=== PATIENT | male | born 1945 | race Caucasian/White ===

== ENCOUNTER 2022-12-08 16:48 | Inpatient (IN) | payer OTHER, SELFPAY ==
--- NOTE | 2022-12-08 | ECG_ITS ---
Test Reason : Md order Blood Pressure : / mmHG Vent. Rate : 076 BPM Atrial Rate : 312 BPM P-R Int : 000 ms QRS Dur : 088 ms QT Int : 392 ms P-R-T Axes : 000 017 211 degrees QTc Int : 441 ms Atrial fibrillation with frequent V-paced beats Low voltage QRS ST & T wave abnormality, consider inferior ischemia Abnormal ECG When compared with ECG of 08-DEC-2022 17:27, No significant changes seen Referred By: Wilfrid Barger Electronically Signed By:Kuldip Pastrana
--- NOTE | ~2022-12-08 | CT_ITS ---
EXAMINATION: CT HEAD WITHOUT CONTRAST (STROKE PROTOCOL) CLINICAL INFORMATION: Stroke protocol. Dysarthria. Aphasia. COMPARISON: CT head 12/24/2019 TECHNIQUE: Contiguous axial imaging was performed from the skull base to vertex without intravenous administration of contrast. Coronal and sagittal reformatted images are performed at CT scanner This CT examination was performed using dose optimization techniques as appropriate, variously including the following: *Automated exposure control *Adjustment of mA and/or kV according to patient size (this includes techniques or standardized protocols for targeted exams where dose is matched to indication/reason for exam; i.e. extremities or head) *Use of iterative reconstruction technique DLP: 784 mGy-cm FINDINGS: There is no evidence of acute intracranial hemorrhage or territorial infarction. No abnormal mass-effect or midline shift is seen. [place] to white matter differentiation is well preserved. No extra-axial fluid collections are identified. There is a calcified lesion in the right parietal area extra-axial region measuring 7 mm consistent with a calcified meningioma. Unchanged since prior studies. There is generalized global volume loss. There is moderate prominence of the ventricles and the sulci . There is moderate hypodensity of the periventricular white matter due to chronic small vessel ischemic disease. There are vascular calcifications of the internal carotid arteries bilaterally. There is no osseous abnormality. Small air-fluid level with associated mucosal thickening in the left maxillary sinus. The mastoid air cells and middle ear cavities are normally aerated. CT/CT head for stroke IMPRESSION: 1. No acute intracranial pathology. 2. Left maxillary sinus disease. This critical result was discussed with Roberta Yoder at 1710 hours on 12/08/2022. It was ascertained that the content and urgency of the report was understood at the time of direct communication.
--- NOTE | ~2022-12-08 | CT_ITS ---
EXAMINATION: CT ANGIOGRAM HEAD CT ANGIOGRAM NECK CLINICAL INFORMATION: Reason for Exam dysarthria, left arm/leg weakness COMPARISON: CTA head and neck 04/04/2020 TECHNIQUE: Initial noncontrast road engineer freight imaging of the head and neck was performed. Comparison is made with noncontrast head CT from earlier today. Test bolus sequences followed by intravenous administration 70 mL of Omnipaque 350. Helical imaging was performed in the axial plane from the aortic arch to the skull vertex. Delayed postcontrast imaging of the head was also performed. The data was processed at the glass technologist's workstation for generation of MIP sequences. Angled MIPs and volume rendered reformatted images were also generated at an offline 3D workstation. Stenoses are assessed in accordance with NASCET criteria unless otherwise indicated. DLP: 1629 mGy-cm This CT examination was performed using dose optimization techniques as appropriate, variously including the following: *Automated exposure control. *Adjustment of mA and/or kV according to patient size (this includes techniques or standardized protocols for targeted exams where dose is matched to indication/reason for exam; i.e. extremities or head). *Use of iterative reconstruction technique. FINDINGS: CT Head: There is no evidence of acute intracranial hemorrhage or edematous territorial infarction. A few foci of hypoattenuation in the periventricular and deep white matter are consistent with mild microangiopathy. Moreno-white matter differentiation is preserved. Proportional prominence of the ventricles and sulcal spaces. No evidence for obstructive hydrocephalus. No abnormal mass effect or midline shift. No extra-axial fluid collections. Stable extra-axial calcification along the right lateral frontal lobe. No pathologic intra-axial enhancement or regional oligemia. No acute soft tissue or osseous abnormalities. Mild mucosal thickening and reactive bony changes indicative of chronic sinusitis involving left maxillary sinus. CT Neck: The thyroid gland and remaining cervical soft tissues are within normal limits. Moderate to advanced multilevel cervical spondylosis. CT Upper Chest: The visualized lung apices and upper mediastinum are within normal limits. Partially visualized left chest wall pacemaker leads. Neck CTA: Aortic Arch: Normal contour and caliber. Two vessel branching pattern of the arch with left common carotid artery arising from the brachiocephalic trunk. Great Vessel Origins: No significant stenosis of the branch origins. Right Common Carotid Artery: No focal stenosis or occlusion. Cervical Right Internal Carotid Artery: Normal opacification without focal stenosis or occlusion. Left Common Carotid Artery: No focal stenosis or occlusion. Cervical Left Internal Carotid Artery: Normal opacification without focal stenosis or occlusion. Cervical Right Vertebral Artery: No focal stenosis or occlusion. Cervical Left Vertebral Artery: No focal stenosis or occlusion. Brain CTA: Intracranial Internal Carotid Arteries: Calcific atherosclerotic disease of the intracranial internal carotid arteries without occlusion or flow-limiting stenosis. Right Anterior Cerebral Artery: Normal A1 segment. Normal opacification of the distal LEN[place]A segments. Left Anterior Cerebral Artery: Normal A1 segment. Normal opacification of the distal L[place]A segments. Anterior Communicating Artery: Normal. Right Middle Cerebral Artery: Normal M1 segment of the MCA without focal stenosis or occlusion. There is an occlusion of the proximal M2 superior division of the right MCA (series 6 image 244. Left Middle Cerebral Artery: Normal M1 segment of the MCA without focal stenosis or occlusion. Normal arborization of the distal segments. A previously occluded left M2 branch as demonstrated on CTA from 04/04/2020 has recanalized. Right Vertebral Artery: Normal V4 segment. Left Vertebral Artery: Normal V4 segment. Basilar Artery: No high-grade stenosis or occlusion. Mild irregularity of the basilar artery with focal mild stenosis of the mid basilar artery. Normal appearance of the proximal superior cerebellar arteries. Right Posterior Cerebral Artery: The P1 segment is diminutive. origin of the PRACTICE ADMINISTRATOR with robust opacification of the posterior communicating artery. Normal opacification of the distal PRACTICE ADMINISTRATOR segments. Left Posterior Cerebral Artery: The P1 segment is diminutive. origin of the PRACTICE ADMINISTRATOR with robust opacification of the posterior communicating artery. Normal opacification of the distal PRACTICE ADMINISTRATOR segments. Normal opacification of the superior sagittal, straight, transverse, and sigmoid sinuses. 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 Interval recanalization of a previously occluded left M2 branch since CTA from 04/04/2020. Impression #[address] Yoder on 12/08/2022 at 5:43 PM
--- NOTE | 2022-12-08 17:01 | ECG_ITS ---
Test Reason : STROKE? Blood Pressure : / mmHG Vent. Rate : 082 BPM Atrial Rate : 220 BPM P-R Int : 000 ms QRS Dur : 092 ms QT Int : 372 ms P-R-T Axes : 000 000 -50 degrees QTc Int : 434 ms Atrial fibrillation with frquent paced beats ST & T wave abnormality, consider inferior ischemia Abnormal ECG When compared with ECG of 24-MAY-2020 03:18, Atrial fibrillation present Inferior T wave changes more prominent Referred By: Roberta Yoder Electronically Signed By:Kuldip Pastrana
--- NOTE | 2022-12-08 17:17 | ED_ITS ---
HPI - Neuro Symptoms/Deficit General Chief Complaint: Stroke Stated Complaint: STROKE ALERT Source: EMS Mode of arrival: EMS Limitations: altered mental status History of Present Illness HPI Narrative: Patient comes to the emergency room via EMS from home. 45 minutes prior to arrival to the emergency room, patient was found by a billing resident in the apartment complexe elevator confused. The resident helped the patient to get back to his apartment. The patient was too confused to give any history. According to the patient's , he reported to EMS that the patient had gone for a walk. When EMS arrived, EMS reports that the patient had significant dysarthria, dysphasia, complete weakness on the left upper and lower extremity and left-sided facial droop. By the time that the EMS crew got to the hospital, patient's symptoms nearly resolved, still a bit confused but able to talk in full sentences. On arrival, NIH score 0 I attempted calling the patient's to get more history, but no one picked up the phone. Patient has history of CVA in March of 2020 Related Data Home Medications Medication Instructions Recorded Confirmed calcium carbonate 500 mg-vitamin 1 tab PO DAILY 12/08/22 12/08/22 D3 10 mcg (400 unit) tablet (Calcium 500 With D) desonide 0.05 % topical cream 1 appl topical BID 12/08/22 12/08/22 donepezil 23 mg tablet 1 tab PO DAILY 12/08/22 12/08/22 ferrous sulfate 325 mg (65 mg 1 tab PO DAILY 12/08/22 12/08/22 iron) tablet (FeroSul) gabapentin 600 mg tablet 1 tab PO BID 12/08/22 12/08/22 memantine 10 mg tablet 1 tab PO BID 12/08/22 12/08/22 metoprolol succinate 50 mg 1 tab PO DAILY 12/08/22 12/08/22 tablet,extended release 24 hr potassium chloride 20 mEq 1 tab PO DAILY 12/08/22 12/08/22 tablet,extended release(part/cryst) quetiapine 25 mg tablet 1 tab PO BID 12/08/22 12/08/22 rivaroxaban 20 mg tablet (Xarelto) 1 tab PO DAILY 12/08/22 12/08/22 sertraline 50 mg tablet 1 tab PO DAILY 12/08/22 12/08/22 spironolactone 50 mg tablet 0.5 tab PO DAILY 12/08/22 12/08/22 Allergies Allergy/AdvReac Type Severity Reaction Status Date / Time No Known Allergies Allergy Verified 12/08/22 17:27 [No Known Allergies*] Review of Systems Review of Systems: Constitutional : No Weight loss, No Fever, No Chills, No Night Sweats, No Fatigue, No Malaise ENT/Mouth : No Hearing loss, No Ear Pain, No Nasal Congestion, No Sinus Pain, No Hoarseness, No sore throat, No Rhinorrhea, No Swallowing Difficulty Eyes: No Eye Pain, No Swelling, No Redness, No Foreign Body, No Discharge, No Vision Changes Cardiovascular : No Chest Pain, No SOB, No Dyspnea on Exertion, No Orthopnea, No Edema, No Palpitations Respiratory : No Cough, No Sputum, No Wheezing, No Smoke Exposure, No Dyspnea Gastrointestinal : No Nausea, No Vomiting, No Diarrhea, No Constipation, No abdominal Pain, No Hematochezia, No Melena Genitourinary : no irregular bleeding, No Dysuria, No Urinary Frequency, No Hematuria, No Urinary Incontinence, No Urgency, No Flank Pain, No Urinary Flow Changes, No Hesitancy Musculoskeletal : No joint pain, No Myalgias, No Joint Swelling Skin : No Skin Lesions, No rash Neuro : Earlier today patient had left-sided mouth droop, left arm and leg wea kness Psych : No Anxiety/Panic, No Depression, No SI/HI/AH/VH, No Social Issues, Heme/Lymph: No Bruising, No Bleeding,No Lymphadenopathy Endocrine : No Polyuria, No Polydipsia, No Temperature Intolerance PMFSH Past Medical History Medical History Alzheimer's dementia Atrial fibrillation Chronic anticoagulation Cirrhosis CVA (cerebral vascular accident) Hepatic encephalopathy Hypertension Pacemaker Social History Social History Smoked in Last 30 Days: No Use of substances other than those prescribed or required for medical reasons: No Advance Directives: Yes Advance Directives Information Provided: No Advance Directives on File: No Physical Exam Vital Signs: Vital Signs: Last Vital Signs Temp 97.8 F 12/08/22 19:22 Pulse 75 12/08/22 19:22 Resp 13 12/08/22 19:22 BP 151/92 H 12/08/22 19:22 Pulse Ox 100 12/08/22 19:22 O2 Del Method 12/08/22 19:22 BMI result Body Mass Index 31.0 Const: Other: Appearance: Alert. Oriented X3. No acute distress. Confused Eyes: Pupils equal, round and reactive to light. ENT: Pharynx normal. Neck: Normal inspection. Neck supple. No lymph nodes noted. No crepitus CVS: Normal heart rate and rhythm. Pulses normal. Normal S1 and S2 Respiratory: No respiratory distress. Breath sounds normal. No Wheezing. No rales Abdomen: Soft and nontender. No rigidity. No distention. Skin: Skin warm and dry. Normal skin color. Normal skin turgor. Extremities: No lower extremity edema. No Lacerations. No Rash Neuro: Oriented X 2. Very mild weakness in the left upper and lower extremities, talking in full sentences, no facial droop, no upper extremity drifting, able to move lower extremities, strength 4/5 in left upper and lower extremity, right extremity 5/5 upper and lower extremities, left lip looks a little bit droopy but patient has no teeth, patient has symmetrical smile Psych: calm, cooperative, normal affect Course Course Course Narrative: -patient is currently on Xarelto and NIH score is 15, patient is not a candidate for tPA -patient has history of CVA in 2020, seems that he did not have residual deficits. 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 I discussed the CT findings with [facility] radiologist, this is new. Patient had previously in 2019 left M2 occlusion -I discussed the CT findings and patient presentation with Dr. Clinton, recommends transfer to [facility]. -18:25 I discussed the patient and CT findings with Dr. Prieto from [facility] neurology, at this time, transfer has been declined: CT scan findings and reported neurological deficits do not make sense, unclear if this is a new versus old stroke. Dr. Prieto will review the images, call me back after reviewing the CT scan. At this time, the images have not been able to cross to the [facility] system in [facility], image transfer was requested 45 minutes ago -Dr. Prieto called back, reviewed the images. Patient does have M2 clot but patient has patent collaterals. Patient's NIH score is 0. Recommendations: No need to transfer. Switch Xarelto to Eliquis I discussed the above-mentioned with Dr. Keith, pt being admitted Medications Administered Discontinued Medications Generic Name Dose Route Start Last Admin Trade Name Zeina PRN Reason Stop Dose Admin Acetaminophen 975 mg 12/08/22 18:01 12/08/22 19:18 Acetaminophen 325 Mg Tablet PO 12/08/22 18:02 975 mg ONCE ONE Administration Iohexol 100 ml 12/08/22 17:18 12/08/22 17:18 Iohexol 350 Mg/Ml 100 Ml Infus..Btl IV 12/08/22 17:19 70 ml ONCE ONE Administration Medical Decision Making Differential Diagnosis Differential Diagnoses: The differential diagnosis associated with the presentation includes (TIA, CVA) Admission/Observation Consideration of admission/observation: Escalation of care including admission/observation considered Consult Healthcare Provider Management of the patient was discussed with: Hospitalist and Customer Success Manager Lab Data [facility] Lab Attestation statement: I reviewed the patient's lab results. 12/08/22 17:20 12/08/22 17:20 Labs: Lab Results 12/08/22 12/08/22 12/08/22 Range/Units 17:20 17:20 17:20 WBC 5.2 (4.8-10.8) X10*3/uL RBC 3.71 L (4.60-5.80) X10*6/uL Hgb 11.8 L (14.0-18.0) g/dl Hct 35.9 L (42.0-52.0) % MCV 96.8 (80.0-98.0) fL MCH 31.8 (27.0-33.0) pg MCHC 32.9 (31.0-36.0) g/dl RDW 13.5 (11.0-16.0) % Plt Count 127 L (160-400) X10*3/uL MPV 10.0 (9.4-12.4) fL Immature Gran % (Auto) 0.4 (0.0-0.4) % Neut % (Auto) 57.7 (45-73) % Lymph % (Auto) 27.5 (20-40) % [place] % (Auto) 10.7 (2-11) % Eos % (Auto) 3.3 (0-4) % Baso % (Auto) 0.4 (0-2) % Lymph # (Auto) 1.4 (1.2-4.9) X10*3/uL [place] # (Auto) 0.6 (0.1-1.2) X10*3/uL Eos # (Auto) 0.2 (0.0-0.4) X10*3/uL Baso # (Auto) 0.0 (0.0-0.2) X10*3/uL Abs Immat Gran (auto) 0.02 (0.00-0.03) X10*3/uL Absolute Neuts (auto) 3.0 (2.0-8.3) x10*3/uL Absolute Nucleated RBC 0.000 (0.0-0.012) X10*3/uL Nucleated RBC % (auto) 0.0 (0.0-0.2) /100WBC PT 12.7 (10.0-13.1) SEC INR 1.1 (0.9-1.1) Sodium 140 (135-145) mmol/L Potassium 3.7 (3.3-5.1) mmol/L Chloride 108 (96-108) mmol/L Carbon Dioxide 25 (22-29) mmol/L Anion Gap 11 L (12-20) BUN 8 L (9-16) mg/dL Creatinine 0.74 (0.5-1.4) mg/dL Estim Creat Clear Calc 93.7 Estimated GFR > 60 POC Glucose (60-115) mg/dL Random Glucose 97 (60-115) mg/dL Calcium 8.0 L (8.4-10.2) mg/dL Magnesium 1.8 (1.6-2.6) mg/dL Total Bilirubin 0.4 (0.0-1.0) mg/dL Direct Bilirubin < 0.2 (0.0-0.5) mg/dL AST 17 (5-37) U/L ALT 9 (0-40) U/L Alkaline Phosphatase 113 (39-117) U/L Ammonia (13-55) umol/L Troponin I High Sens (<3.5-35.0) ng/L Total Protein 5.7 L (6.5-8.0) g/dL Albumin 3.0 L (3.5-5.0) g/dL Urine Color Urine Appearance Urine pH (5.0-9.0) Ur Specific Wykoff (1.005-1.025) Urine Protein (Neg-Trace) mg/dL Urine Glucose (UA) (Negative) mg/dL Urine Ketones (Negative) mg/dL Urine Blood (Negative) Urine Nitrite (Negative) Ur Leukocyte Esterase (Negative) Ethyl Alcohol < 10 mg/dL COVID-19 ([facility]) (Negative) COVID-19 Clin Com 12/08/22 12/08/22 12/08/22 Range/Units 17:20 17:27 17:39 WBC (4.8-10.8) X10*3/uL RBC (4.60-5.80) X10*6/uL Hgb (14.0-18.0) g/dl Hct (42.0-52.0) % MCV (80.0-98.0) fL MCH (27.0-33.0) pg MCHC (31.0-36.0) g/dl RDW (11.0-16.0) % Plt Count (160-400) X10*3/uL MPV (9.4-12.4) fL Immature Gran % (Auto) (0.0-0.4) % Neut % (Auto) (45-73) % Lymph % (Auto) (20-40) % [place] % (Auto) (2-11) % Eos % (Auto) (0-4) % Baso % (Auto) (0-2) % Lymph # (Auto) (1.2-4.9) X10*3/uL [place] # (Auto) (0.1-1.2) X10*3/uL Eos # (Auto) (0.0-0.4) X10*3/uL Baso # (Auto) (0.0-0.2) X10*3/uL Abs Immat Gran (auto) (0.00-0.03) X10*3/uL Absolute Neuts (auto) (2.0-8.3) x10*3/uL Absolute Nucleated RBC (0.0-0.012) X10*3/uL Nucleated RBC % (auto) (0.0-0.2) /100WBC PT (10.0-13.1) SEC INR (0.9-1.1) Sodium (135-145) mmol/L Potassium (3.3-5.1) mmol/L Chloride (96-108) mmol/L Carbon Dioxide (22-29) mmol/L Anion Gap (12-20) BUN (9-16) mg/dL Creatinine (0.5-1.4) mg/dL Estim Creat Clear Calc Estimated GFR POC Glucose 108 (60-115) mg/dL Random Glucose (60-115) mg/dL Calcium (8.4-10.2) mg/dL Magnesium (1.6-2.6) mg/dL Total Bilirubin (0.0-1.0) mg/dL Direct Bilirubin (0.0-0.5) mg/dL AST (5-37) U/L ALT (0-40) U/L Alkaline Phosphatase (39-117) U/L Ammonia (13-55) umol/L Troponin I High Sens < 3.5 (<3.5-35.0) ng/L Total Protein (6.5-8.0) g/dL Albumin (3.5-5.0) g/dL Urine Color Urine Appearance Urine pH (5.0-9.0) Ur Specific Wykoff (1.005-1.025) Urine Protein (Neg-Trace) mg/dL Urine Glucose (UA) (Negative) mg/dL Urine Ketones (Negative) mg/dL Urine Blood (Negative) Urine Nitrite (Negative) Ur Leukocyte Esterase (Negative) Ethyl Alcohol mg/dL COVID-19 ([facility]) Negative (Negative) COVID-19 Clin Com See Note 12/08/22 12/08/22 Range/Units 17:39 19:33 WBC (4.8-10.8) X10*3/uL RBC (4.60-5.80) X10*6/uL Hgb (14.0-18.0) g/dl Hct (42.0-52.0) % MCV (80.0-98.0) fL MCH (27.0-33.0) pg MCHC (31.0-36.0) g/dl RDW (11.0-16.0) % Plt Count (160-400) X10*3/uL MPV (9.4-12.4) fL Immature Gran % (Auto) (0.0-0.4) % Neut % (Auto) (45-73) % Lymph % (Auto) (20-40) % [place] % (Auto) (2-11) % Eos % (Auto) (0-4) % Baso % (Auto) (0-2) % Lymph # (Auto) (1.2-4.9) X10*3/uL [place] # (Auto) (0.1-1.2) X10*3/uL Eos # (Auto) (0.0-0.4) X10*3/uL Baso # (Auto) (0.0-0.2) X10*3/uL Abs Immat Gran (auto) (0.00-0.03) X10*3/uL Absolute Neuts (auto) (2.0-8.3) x10*3/uL Absolute Nucleated RBC (0.0-0.012) X10*3/uL Nucleated RBC % (auto) (0.0-0.2) /100WBC PT (10.0-13.1) SEC INR (0.9-1.1) Sodium (135-145) mmol/L Potassium (3.3-5.1) mmol/L Chloride (96-108) mmol/L Carbon Dioxide (22-29) mmol/L Anion Gap (12-20) BUN (9-16) mg/dL Creatinine (0.5-1.4) mg/dL Estim Creat Clear Calc Estimated GFR POC Glucose (60-115) mg/dL Random Glucose (60-115) mg/dL Calcium (8.4-10.2) mg/dL Magnesium (1.6-2.6) mg/dL Total Bilirubin (0.0-1.0) mg/dL Direct Bilirubin (0.0-0.5) mg/dL AST (5-37) U/L ALT (0-40) U/L Alkaline Phosphatase (39-117) U/L Ammonia 31 (13-55) umol/L Troponin I High Sens (<3.5-35.0) ng/L Total Protein (6.5-8.0) g/dL Albumin (3.5-5.0) g/dL Urine Color Yellow Urine Appearance Clear Urine pH 7.5 (5.0-9.0) Ur Specific Wykoff >= 1.030 H (1.005-1.025) Urine Protein Negative (Neg-Trace) mg/dL Urine Glucose (UA) Negative (Negative) mg/dL Urine Ketones Negative (Negative) mg/dL Urine Blood Negative (Negative) Urine Nitrite Negative (Negative) Ur Leukocyte Esterase Negative (Negative) Ethyl Alcohol mg/dL COVID-19 ([facility]) (Negative) COVID-19 Clin Com Independent Interpretation Interpretation: My interpretation of dry head CT: No acute bleed Radiology Impression Discussion of test interpretation with radiology: I have reviewed the radiologist's reading. Radiologist Impression: FINDINGS: CT Head: There is no evidence of acute intracranial hemorrhage or edematous territorial infarction. A few foci of hypoattenuation in the periventricular and deep white matter are consistent with mild microangiopathy. Moreno-white matter differentiation is preserved. Proportional prominence of the ventricles and sulcal spaces. No evidence for obstructive hydrocephalus. No abnormal mass effect or midline shift. No extra-axial fluid collections. Stable extra-axial calcification along the right lateral frontal lobe. No pathologic intra-axial enhancement or regional oligemia. No acute soft tissue or osseous abnormalities. Mild mucosal thickening and reactive bony changes indicative of chronic sinusitis involving left maxillary sinus. CT Neck: The thyroid gland and remaining cervical soft tissues are within normal limits. Moderate to advanced multilevel cervical spondylosis. CT Upper Chest: The visualized lung apices and upper mediastinum are within normal limits. Partially visualized left chest wall pacemaker leads. Neck CTA: Aortic Arch: Normal contour and caliber. Two vessel branching pattern of the arch with left common carotid artery arising from the brachiocephalic trunk. Great Vessel Origins: No significant stenosis of the branch origins. Right Common Carotid Artery: No focal stenosis or occlusion. Cervical Right Internal Carotid Artery: Normal opacification without focal stenosis or occlusion. Left Common Carotid Artery: No focal stenosis or occlusion. Cervical Left Internal Carotid Artery: Normal opacification without focal stenosis or occlusion. Cervical Right Vertebral Artery: No focal stenosis or occlusion. Cervical Left Vertebral Artery: No focal stenosis or occlusion. Brain CTA: Intracranial Internal Carotid Arteries: Calcific atherosclerotic disease of the intracranial internal carotid arteries without occlusion or flow-limiting stenosis. Right Anterior Cerebral Artery: Normal A1 segment. Normal opacification of the distal LENORA segments. Left Anterior Cerebral Artery: Normal A1 segment. Normal opacification of the distal LENORA segments. Anterior Communicating Artery: Normal. Right Middle Cerebral Artery: Normal M1 segment of the MCA without focal stenosis or occlusion. There is an occlusion of the proximal M2 superior division of the right MCA (series 6 image 244. Left Middle Cerebral Artery: Normal M1 segment of the MCA without focal stenosis or occlusion. Normal arborization of the distal segments. A previously occluded left M2 branch as demonstrated on CTA from 04/04/2020 has recanalized. Right Vertebral Artery: Normal V4 segment. Left Vertebral Artery: Normal V4 segment. Basilar Artery: No high-grade stenosis or occlusion. Mild irregularity of the basilar artery with focal mild stenosis of the mid basilar artery. Normal appearance of the proximal superior cerebellar arteries. Right Posterior Cerebral Artery: The P1 segment is diminutive. origin of the PLATING INSPECTOR with robust opacification of the posterior communicating artery. Normal opacification of the distal PLATING INSPECTOR segments. Left Posterior Cerebral Artery: The P1 segment is diminutive. origin of the PLATING INSPECTOR with robust opacification of the posterior communicating artery. Normal opacification of the distal PLATING INSPECTOR segments. Normal opacification of the superior sagittal, straight, transverse, and sigmoid sinuses. CT/CT angio head? neck stroke IMPRESSION: ? 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 ? Interval recanalization of a previously occluded left M2 branch since CTA from 04/04/2020. ? Independent Historian Clinical information obtained from an independent historian. History obtained f rom or confirmed by: Spouse (Patient's is at bedside) and Other (Patient also able to give full history) External Record Review External record reviewed: Inpatient record (Reviewing the old system chart, patient did have a CVA in March of 2020, opposite side from today) NIH Stroke Scale Level of Consciousness: Alert Level of Consciousness Questions: Answers both questions correctly Level of Consciousness Commands: Performs both tasks correctly Best Gaze: Normal Visual: No visual loss Facial Palsy: Normal Motor Arm (Right): No drift Motor Arm (Left): No drift Motor Leg (Right): No drift Motor Leg (Left): No drift Limb Ataxia: Absent Sensory: Normal Best Language: No aphasia Dysarthia: Normal Extinction and Inattention: No abnormality Score: 0 Critical Care Time Critical Care Time Critical Care Time: Yes Total Critical Care Time: 75 Attestation: I have personally provided critical care time. Time includes review of lab data, radiology results, discussion with consultants, and monitoring for potential decompensation. Intervention performed as documented. Discharge Plan Discharge Clinical Impression: Cerebrovascular accident Patient Disposition: Admitted As Inpatient Prescriptions: No Action quetiapine 25 mg tablet 1 tab PO BID desonide 0.05 % cream 1 appl topical BID gabapentin 600 mg tablet 1 tab PO BID metoprolol succinate 50 mg tablet extended release 24 hr 1 tab PO DAILY potassium chloride 20 mEq tablet,ER particles/crystals 1 tab PO DAILY ferrous sulfate [FeroSul] 325 mg (65 mg iron) tablet 1 tab PO DAILY sertraline 50 mg tablet 1 tab PO DAILY spironolactone 50 mg tablet 0.5 tab PO DAILY memantine 10 mg tablet 1 tab PO BID calcium carbonate-vitamin D3 [Calcium 500 With D] 500 mg-10 mcg (400 unit) tablet 1 tab PO DAILY donepezil 23 mg tablet 1 tab PO DAILY Xarelto 20 mg tablet 1 tab PO DAILY
[2022-12-08] MEDS: iohexoL 350 MG/ML 100 ML INFUS..BTL IV (17:18)
[2022-12-08 17:25] VITALS: BP 133/93; BP 144/84; PULSE 83; PULSE 88; RESP 16; TEMP 36.6; O2SAT 96; O2SAT 99; BMI 31.0
[2022-12-08 17:26] LABS: MANUAL DIFF FLAG NO
[2022-12-08 17:37] LABS: INTERNATIONAL NORM RATIO 1.1 (0.9-1.1); Prothrombin Time 12.7 SEC (10.0-13.1)
--- NOTE | 2022-12-08 17:41 | PC.NURSE ---
AT BEDSIDE CONFIRMS PT ALTERED AT [facility], HX DEMENTIA.
[2022-12-08 17:42] VITALS: PULSE 79; RESP 14; O2SAT 100
[2022-12-08 17:45] LABS: Basophils Percent Auto 0.4 % (0-2); Eosinophils Absolute Auto 0.2 X10*3/uL (0.0-0.4); Eosinophils Percent Auto 3.3 % (0-4); Hematocrit 35.9 % (42.0-52.0); Hemoglobin 11.8 g/dl (14.0-18.0); Imm Gran Abs Auto 0.02 X10*3/uL (0.00-0.03); Imm Gran Pct Auto 0.4 % (0.0-0.4); Lymphocytes Absolute Auto 1.4 X10*3/uL (1.2-4.9); Lymphocytes Percent Auto 27.5 % (20-40); Mean Corpuscular HGB Conc 32.9 g/dl (31.0-36.0); Mean Corpuscular Hemoglobin 31.8 pg (27.0-33.0); Mean Corpuscular Volume 96.8 fL (80.0-98.0); Monocytes Absolute Auto 0.6 X10*3/uL (0.1-1.2); Monocytes Percent Auto 10.7 % (2-11); Neutrophils Percent Auto 57.7 % (45-73); Platelet Count 127 X10*3/uL (160-400); Red Blood Count 3.71 X10*6/uL (4.60-5.80); Red Cell Distribution Width 13.5 % (11.0-16.0); White Blood Count 5.2 X10*3/uL (4.8-10.8)
[2022-12-08 17:47] LABS: Glucose, Whole Blood 108 mg/dL (60-115)
[2022-12-08 17:53] LABS: Alanine Aminotransferase 9 U/L (0-40); Alkaline Phosphatase 113 U/L (39-117); Anion Gap 11 (12-20); Aspartate Amino Transferase 17 U/L (5-37); Bilirubin Direct < 0.2 mg/dL (0.0-0.5); Bilirubin Total 0.4 mg/dL (0.0-1.0); Blood Urea Nitrogen 8 mg/dL (9-16); Carbon Dioxide 25 mmol/L (22-29); Chloride 108 mmol/L (96-108); Creatinine Clr Calc Pharmacy 93.7; Estimated Glomerular Filt Rate > 60; Ethanol < 10 mg/dL; Glucose Random 97 mg/dL (60-115); Magnesium 1.8 mg/dL (1.6-2.6); Potassium 3.7 mmol/L (3.3-5.1); Sodium 140 mmol/L (135-145); Total Protein 5.7 g/dL (6.5-8.0)
--- OUTSIDE RECORDS SUMMARY | 2022-12-08 17:55 | XMS_ITS | Continuity of Care Document ---
:1945 Author Organization [facility] Address [address] [place] [id number]- Care Team Providers Name Role Phone Kamlesh SCHMITT MD, Jairon Atkins Primary Care Physician En[place] [facility] [place]): 11/17/21 - 12/17/21 [facility] [address] [place] [id number] [place] Allergies, Adverse Reactions, Alerts No Known Allergies Immunizations Not Given Vaccine Date Status Refusal Reason pneumococcal 13-valent vaccine 08/27/19 Not Given P atient Refuses Medications aspirin 81 mg oral tablet 81, mg, 1, tablet, By Mouth, Daily, 30, 1, 1, 04/15/08 15:40:10, ADS OPPTHS, [id number] Start Date: 04/15/08 Status: Orderedcalcium carbonate 650 mg oral tablet 650, mg, 1, tablet, By Mouth, 2 times a day, 4, 04/15/08 15:41:15, ADS OPPTHS, [id number] Start Date: 04/15/08 Status: Ordereddonepezil 10 mg oral tablet TK 1 T PO HS Start Date: 08/27/19 Status: OrderedFeroSul 325 mg oral tablet TK 1 T PO DAILY Start Date: 08/27/19 Status: Orderedgabapentin 100 mg oral capsule TK 2 CS PO QPM Start Date: 08/27/19 Status: OrderedGenerlac 10 g/15 mL oral and rectal liquid 0 Refills, Maintenance, 08/27/19 1:11:37 EDT Start Date: 08/27/19 Status: Orderedloratadine 10 mg oral tablet TK 1 T PO D Start Date: 08/27/19 Status: Orderedmemantine 10 mg oral tablet TK 1 T PO D Start Date: 08/27/19 Status: OrderedMetoprolol Succinate ER 25 mg oral tablet, extended release TK 1 T PO D Start Date: 08/27/19 Status: OrderedMetoprolol Tablet 50, mg, By Mouth, 2 times a day, 60, 1, 1, 04/15/08 15:41:40, ADS OPPTHS, [id number] Start Date: 04/15/08 Status: Orderedomeprazole 20 mg oral enteric coated capsule TK 1 C PO D Start Date: 08/27/19 Status: Orderedspironolactone 50 mg oral tablet TK / T PO D Start Date: 08/27/19 Status: Ordered Problem List Condition Effective Dates Status Health Status Informant THROMBOCYTOPENIA, Active UNSPECIFIED(Confirmed)
[2022-12-08 17:56] LABS: Ammonia 31 umol/L (13-55)
--- OUTSIDE RECORDS SUMMARY | 2022-12-08 17:56 | XMS_ITS ---
:1945 External Reference #:[id number] Author Care Team Providers Name Role Phone COBY BARCLAY MD Primary Care Provider [phone] Allergies Code Code System Name Reaction Severity Status Onset NKDA ? Medications Name Status Start Date Stop Date ? ? ammonium lactate 12 % lotion Completed ? ammonium lactate 12 % topical cream Active ? Not available APPLY TO THE AFFECTED AREA EVERY DAY NEEDED DIRECTED Artificial Tears (glycerin-peg) 1 %-0.3 % eye drops Completed ? 02/15/2022 Calcium 500 With D 500 mg-10 mcg (400 unit) tablet Active ? Not available TAKE 1 TABLET BY MOUTH TWICE DAILY cetirizine 10 mg tablet Active ? Not avai lable TAKE 1 TABLET BY MOUTH DAILY desonide 0.05 % topical cream Active ? No t available APPLY TOPICALLY TO THE AFFECTED AREA TWICE DAILY diclofenac 1 % topical gel Completed ? 02/15 divalproex 125 mg tablet,delayed release Active ? Not available TAKE 1 TABLET BY MOUTH TWICE DAILY donepezil 10 mg tablet Active ? Not avail able TAKE 1 TABLET BY MOUTH EVERY DAY AT BEDTIME donepezil 23 mg tablet Active ? Not avail able TAKE 1 TABLET BY MOUTH EVERY DAY enoxaparin 80 mg/0.8 mL subcutaneous syringe Completed ? 11/11/2021 FeroSul 325 mg (65 mg iron) tablet Active ? Not available TAKE 1 TABLET BY MOUTH EVERY DAY fluticasone propionate 50 mcg/actuation nasal Completed ? 02/15/2022 spray,suspension Fluzone High-Dose 2417-3087 (PF) 180 mcg/0.5 mL Completed ? 02/15/2022 intramuscular syringe Fluzone High-Dose 0391-3643 (PF) 180 mcg/0.5 mL Completed ? 02/15/2022 intramuscular syringe Fluzone High-Dose (PF) 180 mcg/0.5 mL Completed ? 02/15/2022 intramuscular syringe Fluzone High-Dose Quad (PF) 240 mcg/0.7 mL IM Completed ? 02/15/2022 syringe folic acid 1 mg tablet Completed ? furosemide 20 mg tablet Completed ? 11/11/20 21 gabapentin 100 mg capsule Completed ? 2020 gabapentin 300 mg capsule Active ? Not av ailable TAKE 1 CAPSULE BY MOUTH TWICE DAILY Generlac 10 gram/15 mL oral solution Completed ? 11/11/2021 TAKE 10 ML BY MOUTH EVERY DAY Harvoni 90 mg-400 mg tablet Completed ? 10/26 hydroxyzine HCl 25 mg tablet Completed ? levofloxacin 500 mg tablet Completed ? 11/11 loratadine 10 mg tablet Completed ? 11/11/20 memantine 10 mg tablet Active ? Not avail able TAKE 1 TABLET BY MOUTH TWICE DAILY metoprolol succinate ER 25 mg tablet,extended release 24 Complet ed ? 11/11/2021 hr metoprolol succinate ER 50 mg tablet,extended release 24 hr Acti ve ? Not available TAKE 1 TABLET BY MOUTH DAILY metoprolol tartrate 25 mg tablet Completed ? 11/11/2021 Mi-Acid 200 mg-200 mg-20 mg/5 mL oral suspension Active ? Not available montelukast 10 mg tablet Completed ? 021 nitroglycerin 0.4 mg sublingual tablet Active ? Not available DISSOLVE 1 TABLET IN MOUTH NEEDED FOR CHEST PAIN omeprazole 20 mg capsule,delayed release Completed ? 11/11/2021 omeprazole 40 mg capsule,delayed release Completed ? 11/11/2021 TAKE 1 CAPSULE BY MOUTH DAILY oxycodone 5 mg tablet Completed ? 11/11/2021 quetiapine 25 mg tablet Active ? Not avai lable TAKE 1 TABLET BY MOUTH TWICE DAILY sertraline 50 mg tablet Active ? Not avai lable TAKE 1 TABLET BY MOUTH EVERY DAY Shingrix (PF) 50 mcg/0.5 mL intramuscular suspension, Active ? Not available kit spironolactone 25 mg tablet Completed ? 10/26 spironolactone 50 mg tablet Active ? Not available TAKE 1/2 TABLET BY MOUTH DAILY triamcinolone acetonide 0.1 % topical ointment Active ? Not available warfarin 1 mg tablet Active ? Not availab le warfarin 2.5 mg tablet Active ? Not avail able warfarin 4 mg tablet Active ? Not availab le Xarelto 20 mg tablet Active ? Not availab le TAKE 1 TABLET BY MOUTH DAILY Problems Name Status Onset Date Source ? Onychomycosis Active 10/16/2016 ? Peripheral Vascular Disease Active 10/16/2016 ? Keratoma Active 10/16/2016 ? Pain in Toe Active 01/22/2017 ? Pain in Both Feet Active 01/22/2017 ? Procedures Date Name Performed by ? ? Pacemaker Information not avai lable Results Lab Results None recorded. Past Encounters Encounter Date Diagnosis Provider 06/23/2021 Onychomycosis; Pain in Toe; LOCO Brooke[facility]: 222 Peripheral Vascular Disease; Pain in [address], Both Feet; Foot [place], [place] [phone], Ph. Social History Tobacco Smoking Status Never Smoker Vaccine List Vaccine Type influenza, injectable, quadrivalent 07/27/2016 Plan of Care Reminders Provider Appointments None recorded. ? ? Lab None recorded. ? ? Referral None recorded. ? ? Procedures None recorded. ? ? Surgeries None recorded. ? ? Imaging None recorded. ? ? Vitals 06/23/2021 09:00AM ESTABLISHED PATIENT 15 Height 5 ft 7 in 04/15/2021 09:00AM ESTABLISHED PATIENT 15 Height Weight BMI Blood Pressure 5 ft 7 in 190 lbs 29.8 kg/m2 118/62 mm[Hg] 09/23/2020 09:00AM ESTABLISHED PATIENT 15 Height Weight BMI Blood Pressure 5 ft 7 in 190 lbs 29.8 kg/m2 122/64 mm[Hg] 07/08/2020 09:00AM ESTABLISHED PATIENT 15 Height Weight BMI 5 ft 7 in 190 lbs 29.8 kg/m2 04/29/2020 09:30AM ESTABLISHED PATIENT 15 Height Weight BMI 5 ft 7 in 190 lbs 29.8 kg/m2 12/30/2019 09:45AM ESTABLISHED PATIENT 15 Height Weight BMI 5 ft 7 in 190 lbs 29.8 kg/m2 08/19/2019 09:00AM ESTABLISHED PATIENT 15 Height Weight BMI 5 ft 7 in 190 lbs 29.8 kg/m2 06/10/2019 09:00AM ESTABLISHED PATIENT 15 Height Weight BMI 5 ft 7 in 190 lbs 29.8 kg/m2 03/31/2019 09:00AM ESTABLISHED PATIENT 15 Height Weight BMI 5 ft 7 in 190 lbs 29.8 kg/m2 01/14/2019 09:30AM ESTABLISHED PATIENT 15 Height Weight BMI 5 ft 7 in 190 lbs 29.8 kg/m2 10/31/2018 09:30AM ESTABLISHED PATIENT 15 Height Weight BMI 5 ft 7 in 190 lbs 29.8 kg/m2 08/22/2018 09:15AM ESTABLISHED PATIENT 15 Height Weight BMI 5 ft 7 in 190 lbs 29.8 kg/m2 06/19/2018 09:15AM ESTABLISHED PATIENT 15 Height Weight BMI 5 ft 7 in 190 lbs 29.8 kg/m2 04/17/2018 09:30AM ESTABLISHED PATIENT 15 Height Weight BMI 5 ft 7 in 190 lbs 29.8 kg/m2 11/14/2017 09:15AM ESTABLISHED PATIENT 15 Height Weight BMI Blood Pressure 5 ft 7 in 190 lbs 29.8 kg/m2 118/74 mm[Hg] 09/05/2017 09:15AM ESTABLISHED PATIENT 15 Height Weight BMI Blood Pressure 5 ft 7 in 190 lbs 29.8 kg/m2 118/74 mm[Hg] 06/27/2017 09:15AM ESTABLISHED PATIENT 15 Height Weight BMI Blood Pressure 5 ft 7 in 190 lbs 29.8 kg/m2 118/74 mm[Hg] 01/22/2017 10:45AM FOLLOW UP 15 Height Weight BMI Blood Pressure 5 ft 7 in 190 lbs 29.8 kg/m2 118/74 mm[Hg] 10/16/2016 10:15AM FOLLOW UP 15 Height Weight BMI Blood Pressure 5 ft 7 in 190 lbs 29.8 kg/m2 120/84 mm[Hg]
[2022-12-08 17:59] LABS: Troponin-I High Sensitivity < 3.5 ng/L (<3.5-35.0)
[2022-12-08 18:09] LABS: COVID-19 Test Negative (Negative); IDNOW Serial# 16C4AD1C
[2022-12-08] MEDS: Acetaminophen 325 MG TABLET 975 MG PO (19:18)
[2022-12-08 19:22] VITALS: BP 151/92; PULSE 75; RESP 13; TEMP 36.6; O2SAT 100
[2022-12-08 19:47] LABS: Appearance Urine Clear; Color Urine Yellow; Glucose Urine UA Negative (Negative); Leukocyte Esterase Urine Negative (Negative); Nitrite Urine Negative (Negative); PH 7.5 (5.0-9.0); Specific Gravity - Urine >= 1.030 (1.005-1.025); Urine Blood Negative (Negative); Urine Ketones Negative (Negative); Urine Protein Negative (Neg-Trace)
--- NOTE | 2022-12-08 20:00 | MHC.EDTECH ---
this pct assumed care of patient at 1900 ,1999 rounding done patient said he did not had dinner ,this pct asked rn glenis if patient to have food ,pt was given a ham sandwich ,pudding and milk patient at 100 % drank 240 ml milk .
[2022-12-08 20:10] LABS: Amphetamine Screen Urine Not Detected (Not Detect); Barbiturates, Urine Not Detected (Not Detect); Benzodiazepines Screen Urine Not Detected (Not Detect); Cannabinoid Screen Urine Not Detected (Not Detect); Cocaine Screen Urine Not Detected (Not Detect); Fentanyl, urine Not Detected (Not Detect); Opiate Screen Urine Not Detected (Not Detect); Phencyclidine Screen Urine Not Detected (Not Detect)
--- NOTE | 2022-12-08 21:30 | P.HPHOSP_ITS ---
History of Present Illness Date of Service: 12/08/22 Attending physician on admission: Steve Horton Chief Complaint: Left-sided weakness and facial droop Pt is a 77-year-old male with a PMH significant for?CVA in March of 2020, Alzheimer's, pacemaker, cirrhosis, and history of polysubstance abuse now clean for many years who presents to the ED after an episode confusion and right-sided facial droop and?weakness. Patient has dementia with some confusion at baseline so HPI chiefly obtained from his who is at his bedside. 45 minutes prior to arrival in the ED the patient was found by another resident in his apartment building's elevator, confused holding onto the railing. EMS arrived and found the patient could not speak, recognize anyone, or move the entirety of the right side of his body. The patient was also noted to have a right-sided facial droop. The patient's symptoms quickly resolved so and by the time EMS arrived to the ED the patient was still confused but able to speak in complete sentences. Patient continued to improve in the ED and by the time his CT scan was done his NIH score was 0 with only a very mild deficit in the upper left and lower extremities with a strength of 4/5. Currently patient has no acute complaints. No lightheadedness, dizziness, headache. No vision changes or blurriness. No dysarthria, dysphagia. Denies any chest pain/pressure, palpitations. No abdominal pain. Of note patient had a CVA in 2019 with an occlusion of the left M2 division of the right middle cerebral artery for which he had no apparent residual deficits. Patient was then seen at [facility]. In the ED labs were largely unremarkable. CT of the head showed left maxillary sinus disease but no acute intracranial pathology. CTA head and neck showed occlusion the proximal superior M2 division of the right middle cerebral artery and an interval recanalization of the previously occluded left M2 branch since CTA from 04/04/2020. Pt's NIH score was 0 upon his arrival so no tPA given. Of note patient was seen at [facility] for his CVA on 04/04/2020. ED contacted [facility] spoke with Dr. Prieto from Neurology about potential transfer of patient. After reviewing today's CTA Dr. Prieto noted that the patient has M2 clot but has patent collateral arteries in thus recommended not to transfer him. He did suggest to switch from Xarelto to Eliquis. Pt will be admitted to the hospital for treatment and evaluation of CVA. Review of Systems Review of Systems: Right-sided facial droop and weakness Altered mental status No chest pain/pressure, palpitations Denies SOB No abdominal pain Yes all other systems are reviewed and are negative [facility] Medical History Alzheimer's dementia Atrial fibrillation Chronic anticoagulation Cirrhosis CVA (cerebral vascular accident) Hepatic encephalopathy Hypertension Pacemaker Social History Household Members: Spouse Housing: Apartment Do you presently have visiting nurse or other home services: No Patient Tobacco Use Status: Former Tobacco user Smoked in Last 30 Days: No Use of substances other than those prescribed or required for medical reasons: No Currently Displaying Signs/Symptoms of Drug Intoxication Withdrawal: No Have you been hit, kicked, punched, or otherwise hurt by someone within the past year? If so, by whom?: No Do you feel safe in your current relationship?: Yes Is there a partner from a previous relationship who is making you feel unsafe now?: No Are you made to feel afraid or neglected: No Spiritual Healthcare Practices: [employer] Advance Directives: Yes Advance Directives Information Provided: No Advance Directives on File: No Advance Directives Date on File: 12/09/22 Do you have thoughts of harming others: None Do you have a plan to hurt others: No Plan Recently lost weight without trying: No Nutrition Risks: No Nutritional Risk Meds Allergies Allergy/AdvReac Type Severity Reaction Status Date / Time No Known Allergies Allergy Verified 12/08/22 17:27 [No Known Allergies*] Home Medications Medication Instructions Recorded Confirmed Last Taken Type calcium carbonate 500 mg-vitamin 1 tab PO DAILY 12/08/22 12/08/22 Unknown History D3 10 mcg (400 unit) tablet (Calcium 500 With D) desonide 0.05 % topical cream 1 appl topical BID 12/08/22 12/08/22 Unknown History donepezil 23 mg tablet 1 tab PO DAILY 12/08/22 12/08/22 Unknown History ferrous sulfate 325 mg (65 mg 1 tab PO DAILY 12/08/22 12/08/22 Unknown History iron) tablet (FeroSul) gabapentin 600 mg tablet 1 tab PO BID 12/08/22 12/08/22 Unknown History memantine 10 mg tablet 1 tab PO BID 12/08/22 12/08/22 Unknown History metoprolol succinate 50 mg 1 tab PO DAILY 12/08/22 12/08/22 Unknown History tablet,extended release 24 hr potassium chloride 20 mEq 1 tab PO DAILY 12/08/22 12/08/22 Unknown History tablet,extended release(part/cryst) quetiapine 25 mg tablet 1 tab PO BID 12/08/22 12/08/22 Unknown History rivaroxaban 20 mg tablet (Xarelto) 1 tab PO DAILY 12/08/22 12/08/22 Unknown History sertraline 50 mg tablet 1 tab PO DAILY 12/08/22 12/08/22 Unknown History spironolactone 50 mg tablet 0.5 tab PO DAILY 12/08/22 12/08/22 Unknown History Physical Exam Vital Signs and Narrative: Vital Signs: Last Vital Signs Temp 97.8 F 12/08/22 19:22 Pulse 75 12/08/22 19:22 Resp 13 12/08/22 19:22 BP 151/92 H 12/08/22 19:22 Pulse Ox 100 12/08/22 19:22 O2 Del Method 12/08/22 19:22 BMI result Body Mass Index 31.0 Constitutional: Alert, in no acute distress. Mental Status: Oriented to person, dementia at baseline. Eyes: Pupils are equal, round, and reactive to light. Ear, Nose, and Throat: Oropharynx clear, mucous membranes moist. Ears and nose without deformities. Trachea midline. Respiratory: Clear to auscultation bilaterally. No wheezing, rales, or rhonchi. Cardiovascular: Irregularly irregular rhythm. No murmurs or rubs. Gastrointestinal: Abdomen soft, non-tender, non-distended. Normal bowel sounds. Neurologic: Cranial nerves II-XI are grossly intact. No focal neurological deficits. Moves all extremities spontaneously. 5/5 strength for upper and lower extremities bilaterally. No facial droop. Skin: No rashes or lesions noted. Musculoskeletal: No cyanosis or clubbing. Extremities: No edema. Psychiatric: Normal mood and affect. Results Labs 12/08/22 17:20 12/08/22 17:20 Labs: Laboratory Results - last 24 hr 12/08/22 12/08/22 12/08/22 17:20 17:20 17:20 MCV 96.8 MCH 31.8 MCHC 32.9 RDW 13.5 Plt Count 127 L MPV 10.0 Immature Gran % (Auto) 0.4 Neut % (Auto) 57.7 Lymph % (Auto) 27.5 [place] % (Auto) 10.7 Eos % (Auto) 3.3 Baso % (Auto) 0.4 Lymph # (Auto) 1.4 [place] # (Auto) 0.6 Eos # (Auto) 0.2 Baso # (Auto) 0.0 Abs Immat Gran (auto) 0.02 Absolute Neuts (auto) 3.0 Absolute Nucleated RBC 0.000 Nucleated RBC % (auto) 0.0 PT 12.7 INR 1.1 Anion Gap 11 L Estim Creat Clear Calc 93.7 Estimated GFR > 60 POC Glucose Random Glucose 97 Calcium 8.0 L Magnesium 1.8 Total Bilirubin 0.4 Direct Bilirubin < 0.2 AST 17 ALT 9 Alkaline Phosphatase 113 Ammonia Troponin I High Sens Total Protein 5.7 L Albumin 3.0 L Urine Color Urine Appearance Urine pH Ur Specific [place] Urine Protein Urine Glucose (UA) Urine Ketones Urine Blood Urine Nitrite Ur Leukocyte Esterase Urine Opiates Screen Urine Fentanyl Screen Ur Barbiturates Screen Ur Phencyclidine Scrn Ur Amphetamines Screen U Benzodiazepines Scrn Urine Cocaine Screen U Marijuana (THC) Screen Ethyl Alcohol < 10 COVID-19 ([facility]IE) COVID-19 [place] Com 12/08/22 12/08/22 12/08/22 17:20 17:27 17:39 MCV MCH MCHC RDW Plt Count MPV Immature Gran % (Auto) Neut % (Auto) Lymph % (Auto) [place] % (Auto) Eos % (Auto) Baso % (Auto) Lymph # (Auto) [place] # (Auto) Eos # (Auto) Baso # (Auto) Abs Immat Gran (auto) Absolute Neuts (auto) Absolute Nucleated RBC Nucleated RBC % (auto) PT INR Anion Gap Estim Creat Clear Calc Estimated GFR POC Glucose 108 Random Glucose Calcium Magnesium Total Bilirubin Direct Bilirubin AST ALT Alkaline Phosphatase Ammonia Troponin I High Sens < 3.5 Total Protein Albumin Urine Color Urine Appearance Urine pH Ur Specific [place] Urine Protein Urine Glucose (UA) Urine Ketones Urine Blood Urine Nitrite Ur Leukocyte Esterase Urine Opiates Screen Urine Fentanyl Screen Ur Barbiturates Screen Ur Phencyclidine Scrn Ur Amphetamines Screen U Benzodiazepines Scrn Urine Cocaine Screen U Marijuana (THC) Screen Ethyl Alcohol COVID-19 ([facility]IE) Negative COVID-19 Clin Com See Note 12/08/22 12/08/22 12/08/22 17:39 19:33 19:33 MCV MCH MCHC RDW Plt Count MPV Immature Gran % (Auto) Neut % (Auto) Lymph % (Auto) [place] % (Auto) Eos % (Auto) Baso % (Auto) Lymph # (Auto) [place] # (Auto) Eos # (Auto) Baso # (Auto) Abs Immat Gran (auto) Absolute Neuts (auto) Absolute Nucleated RBC Nucleated RBC % (auto) PT INR Anion Gap Estim Creat Clear Calc Estimated GFR POC Glucose Random Glucose Calcium Magnesium Total Bilirubin Direct Bilirubin AST ALT Alkaline Phosphatase Ammonia 31 Troponin I High Sens Total Protein Albumin Urine Color Yellow Urine Appearance Clear Urine pH 7.5 Ur Specific [place] >= 1.030 H Urine Protein Negative Urine Glucose (UA) Negative Urine Ketones Negative Urine Blood Negative Urine Nitrite Negative Ur Leukocyte Esterase Negative Urine Opiates Screen Not Detected Urine Fentanyl Screen Not Detected Ur Barbiturates Screen Not Detected Ur Phencyclidine Scrn Not Detected Ur Amphetamines Screen Not Detected U Benzodiazepines Scrn Not Detected Urine Cocaine Screen Not Detected U Marijuana (THC) Screen Not Detected Ethyl Alcohol COVID-19 ([facility]IE) COVID-19 Clin Com Imaging Radiologist's Impressions: Impressions Head CT 12/08/22 17:03 IMPRESSION: 1. No acute intracranial pathology. 2. Left maxillary sinus disease. This critical result was discussed with Roberta Yoder at 1710 hours on 12/08/2022. It was ascertained that the content and urgency of the report was understood at the time of direct communication. Head/Neck CTA 12/08/22 17:22 IMPRESSION: Occlusion of the proximal superior M2 division of the right middle cerebral artery. Interval recanalization of a previously occluded left M2 branch since CTA from 04/04/2020. Impression #[address] Yoder on 12/08/2022 at 5:43 PM Assessment and Plan (1) Cerebrovascular accident: Status: Acute Plan Pt is a 77-year-old male with a PMH significant for?CVA in March of 2020, Alzheimer's, pacemaker, cirrhosis, and history of polysubstance abuse now clean for many years who presents to the ED after an episode confusion and right-sided facial droop and?weakness. Pt will be admitted to telemetry for treatment and evaluation of CVA. CVA Patient with right-sided facial droop and upper and lower extremity weakness CTA shows occlusion of the proximal superior M2 division of the right middle c erebral artery, and interval recanalization of the previously occluded left M2 branch CTA from 04/04/2020 Patient improved by the time he arrived at the ED, NIH score 0, no indication for tPA Echocardiogram Neurology consult Stop Xarelto and switch to Eliquis, per [facility] neurology Start atorvastatin 80 mg qd OT/PT consult Admit to telemetry Abnormal EKG Patient with history of atrial fibrillation and pacemaker Initial EKG showed a paced, undetermined rhythm with nonspecific T-wave inversions, possible atrial flutter Repeat EKG and compare Atrial fibrillation Patient with pacemaker Stop Xarelto and switch to Eliquis Admit to telemetry Left maxillary sinus disease From CT findings Follow-up outpatient with PCP Alzheimer's Appears at baseline Continue home meds Full Code Attending:?Dr. Horton DVT Prophylaxis: On Eliquis Pt will require a hospitalization of at least two nights for treatment and evaluation of CVA. Time Spent With Patient Time: Total time managing care of this patient today ____ minutes. Quality Stroke Does the patient have a stroke diagnosis?: Yes Reason for No Anti-thrombotic by Day Two: Contraindicated (Pt has NIH score of 0 at time of presentation to the ED.) VTE Prior VTE?: No VTE Risk Level:: Medical - moderate - high VTE Device Contraindication: Treatment Not Indicated VTE Drug Contraindication: N/A - Med Ordered
[2022-12-08 22:00] VITALS: BP 158/85; PULSE 74; RESP 16; TEMP 36.9; O2SAT 98
--- NOTE | 2022-12-08 22:00 | MHC.EDTECH ---
2200 rounding done ,vitals sign taken patient was assisted unto bed side commode ,pt had a large soft bowel movement ,patient assisted back in bed ,patient resting pt at bedside ,call ann within reach .
[2022-12-08] MEDS: Apixaban 5 MG TABLET PO (23:46)
[2022-12-08] MEDS: Atorvastatin Calcium 80 MG TABLET PO (23:47)
[2022-12-08] MEDS: QUEtiapine Fumarate 25 MG TABLET PO (23:47)
[2022-12-08] MEDS: Memantine HCl 10 MG TABLET PO (23:47)
[2022-12-08] MEDS: Gabapentin 600 MG TABLET PO (23:47)
[2022-12-08 23:56] VITALS: BP 147/90; PULSE 66; RESP 16; TEMP 37.1; O2SAT 98
--- NOTE | 2022-12-08 23:58 | MHC.EDTECH ---
0000 rounding done ,vitals sign taken ,patient is laying on his left side ,patient awake watching television ,urinal at bed side ,warm blanket given ,patient was offer food or drinks ,but refused ,patient is staying for the night ,call ann within reach .
[2022-12-09 00:20] LABS: Prothrombin Time Whole Bld POC 13.4 sec (11.1-13.5); ~PT, ~INR - Anti Coag Clinic 1.1 (0.9-1.1)
[2022-12-09 02:00] VITALS: BP 131/81; PULSE 81; RESP 15; TEMP 36.6; O2SAT 98
--- NOTE | 2022-12-09 02:07 | MHC.EDTECH ---
0200 rounding done vitals sign taken patient was asleep ,but awake while im taking vitals sign ,patient awake and at bed side ,call ann within reach ,patient got a bed on [facility] ,this pct awaiting for nurse to give report to bring patient upstairs .
--- NOTE | 2022-12-09 02:42 | PC.NURSE ---
Sent cortext message to Dr. Horton to update code status for patient.
[2022-12-09 03:06] VITALS: BP 160/99; PULSE 69; RESP 20; TEMP 36.2; O2SAT 99
[2022-12-09 07:13] LABS: Cholesterol 166 mg/dL; HDL Cholesterol 53 mg/dL; LDL Cholesterol Calculated 101 mg/dl; Triglycerides 63 mg/dL
[2022-12-09 07:23] VITALS: BP 146/87; PULSE 81; RESP 20; TEMP 36.5; O2SAT 97
[2022-12-09] MEDS: QUEtiapine Fumarate 25 MG TABLET PO (09:39)
[2022-12-09] MEDS: Ferrous Sulfate 324 MG TABLET.DR PO (09:39)
[2022-12-09] MEDS: Gabapentin 600 MG TABLET PO (09:39)
[2022-12-09] MEDS: Metoprolol Succinate ER 50 MG TAB.ER.24H PO (09:39)
[2022-12-09] MEDS: Memantine HCl 10 MG TABLET PO (09:39)
[2022-12-09] MEDS: Apixaban 5 MG TABLET PO (09:39)
[2022-12-09] MEDS: Sertraline HCL 50 MG TABLET PO (09:39)
[2022-12-09] MEDS: Atorvastatin Calcium 80 MG TABLET PO (09:39)
[2022-12-09] MEDS: Spironolactone 25 MG TABLET PO (09:39)
[2022-12-09] MEDS: Potassium Chloride ER 20 MEQ TAB.ER.PRT PO (09:39)
[2022-12-09] MEDS: Calcium + Vitamin D 250 MG TABLET 500 MG PO (09:40)
--- NOTE | 2022-12-09 10:23 | PHA.MEDREC ---
Pharmacy Consult ? Medication Reconciliation Pharmacy has completed the medication reconciliation.
--- NOTE | 2022-12-09 11:16 | HO.PM.IMPN ---
Subjective Subjective Date of Service: 12/09/22 Interval History: seen and examined this morning follow up for left side weakness confused at baseline due to dementia, history obtain from patient awake, alert, no complaints Review of Systems Review of Systems: Yes all other systems are reviewed and are negative Constitutional Constitutional: Denies chills and Denies fever(s) Cardiovascular Cardiovascular: Denies chest pain, Denies palpitations and Denies dyspnea Respiratory Respiratory: Denies cough and Denies dyspnea Gastrointestinal Gastrointestinal: Denies abdominal pain, Denies nausea and Denies vomiting Endocrine Endocrine: Denies palpitations Physical Exam Vital Signs: Vital Signs: Last Vital Signs Temp 97.7 F 12/09/22 07:23 Pulse 81 12/09/22 07:23 Resp 20 12/09/22 07:23 BP 146/87 H 12/09/22 07:23 Pulse Ox 97 12/09/22 07:23 O2 Del Method 12/09/22 07:23 BMI result Body Mass Index 31.0 Const: General: cooperative, comfortable, alert and awake Orientation/consciousness: oriented to person Resp: Effort & Inspection: normal respiratory effort and able to speak in complete sentences Cardio: Rate: regular rate GI: Palpation (GI): not soft and nontender Neuro: Other: face symmetrical, tongue midline, Speech clear.hand grasp Equal bilaterally, able to move all 4 extremities; bilateral upper extremities equal 5/5, slight weakness in left lower extremity compared to right General: oriented to person Extrem: General: Yes no pedal edema Objective Data Active Medications Acetaminophen (Acetaminophen 325 Mg Tablet) 650 mg PO Q6H PRN PRN Reason: Pain, Mild (Pain Scale 1-3) Apixaban (Apixaban 5 Mg Tablet) 5 mg PO BID [facility] Last Admin: 12/09/22 09:39 Dose: 5 mg Documented By: HARSH Atorvastatin Calcium (Atorvastatin Calcium 80 Mg Tablet) 80 mg PO DAILY [facility] Last Admin: 12/09/22 09:39 Dose: 80 mg Documented By: HARSH Calcium Carbonate/Cholecalciferol (Calcium + Vitamin D 250 Mg Tablet) 500 mg PO DAILY [facility] Last Admin: 12/09/22 09:40 Dose: 500 mg Documented By: HARSH Docusate Sodium (Docusate Sodium 100 Mg Capsule) 100 mg PO DAILY PRN PRN Reason: Constipation Ferrous Sulfate (Ferrous Sulfate 324 Mg Tablet.) 324 mg PO DAILY [facility] Last Admin: 12/09/22 09:39 Dose: 324 mg Documented By: HARSH Gabapentin (Gabapentin 600 Mg Tablet) 600 mg PO BID [facility] Last Admin: 12/09/22 09:39 Dose: 600 mg Documented By: HARSH Memantine (Memantine Hcl 10 Mg Tablet) 10 mg PO BID [facility] Last Admin: 12/09/22 09:39 Dose: 10 mg Documented By: HARSH Metoprolol Succinate (Metoprolol Succinate Er 50 Mg Tab.Er.24h) 50 mg PO DAILY [facility]; Protocol Last Admin: 12/09/22 09:39 Dose: 50 mg Documented By: HARSH Non-Formulary Medication (Donepezil) 1 tab PO DAILY [facility] Potassium Chloride (Potassium Chloride Er 20 Meq Tab.Er.Prt) 20 meq PO DAILY [facility] Last Admin: 12/09/22 09:39 Dose: 20 meq Documented By: HARSH Quetiapine Fumarate (Quetiapine Fumarate 25 Mg Tablet) 25 mg PO BID [facility] Last Admin: 12/09/22 09:39 Dose: 25 mg Documented By: HARSH Sertraline HCl (Sertraline Hcl 50 Mg Tablet) 50 mg PO DAILY [facility] Last Admin: 12/09/22 09:39 Dose: 50 mg Documented By: HARSH Spironolactone (Spironolactone 25 Mg Tablet) 25 mg PO DAILY [facility]; Protocol Last Admin: 12/09/22 09:39 Dose: 25 mg Documented By: HARSH Labs 12/08/22 17:20 12/08/22 17:20 Labs: Laboratory Results - last 24 hr 12/08/22 12/08/22 12/08/22 17:20 17:20 17:20 MCV 96.8 MCH 31.8 MCHC 32.9 RDW 13.5 Plt Count 127 L MPV 10.0 Immature Gran % (Auto) 0.4 Neut % (Auto) 57.7 Lymph % (Auto) 27.5 Carver % (Auto) 10.7 Eos % (Auto) 3.3 Baso % (Auto) 0.4 Lymph # (Auto) 1.4 Carver # (Auto) 0.6 Eos # (Auto) 0.2 Baso # (Auto) 0.0 Abs Immat Gran (auto) 0.02 Absolute Neuts (auto) 3.0 Absolute Nucleated RBC 0.000 Nucleated RBC % (auto) 0.0 PT 12.7 Whole Blood PT INR 1.1 Whole Blood INR Anion Gap 11 L Estim Creat Clear Calc 93.7 Estimated GFR > 60 POC Glucose Random Glucose 97 Calcium 8.0 L Magnesium 1.8 Total Bilirubin 0.4 Direct Bilirubin < 0.2 AST 17 ALT 9 Alkaline Phosphatase 113 Ammonia Troponin I High Sens Total Protein 5.7 L Albumin 3.0 L Triglycerides Cholesterol LDL Cholesterol, Calc HDL Cholesterol Urine Color Urine Appearance Urine pH Ur Specific [place] Urine Protein Urine Glucose (UA) Urine Ketones Urine Blood Urine Nitrite Ur Leukocyte Esterase Urine Opiates Screen Urine Fentanyl Screen Ur Barbiturates Screen Ur Phencyclidine Scrn Ur Amphetamines Screen U Benzodiazepines Scrn Urine Cocaine Screen U Marijuana (THC) Screen Ethyl Alcohol < 10 COVID-19 ([facility]) [employer] 12/08/22 12/08/22 12/08/22 17:20 17:25 17:27 MCV MCH MCHC RDW Plt Count MPV Immature Gran % (Auto) Neut % (Auto) Lymph % (Auto) [place]ver % (Auto) Eos % (Auto) Baso % (Auto) Lymph # (Auto) Carver # (Auto) Eos # (Auto) Baso # (Auto) Abs Immat Gran (auto) Absolute Neuts (auto) Absolute Nucleated RBC Nucleated RBC % (auto) PT Whole Blood PT 13.4 INR Whole Blood INR 1.1 Anion Gap Estim Creat Clear Calc Estimated GFR POC Glucose 108 Random Glucose Calcium Magnesium Total Bilirubin Direct Bilirubin AST ALT Alkaline Phosphatase Ammonia Troponin I High Sens < 3.5 Total Protein Albumin Triglycerides Cholesterol LDL Cholesterol, Calc HDL Cholesterol Urine Color Urine Appearance Urine pH Ur Specific [place] Urine Protein Urine Glucose (UA) Urine Ketones Urine Blood Urine Nitrite Ur Leukocyte Esterase Urine Opiates Screen Urine Fentanyl Screen Ur Barbiturates Screen Ur Phencyclidine Scrn Ur Amphetamines Screen U Benzodiazepines Scrn Urine Cocaine Screen U Marijuana (THC) Screen Ethyl Alcohol COVID-19 ([facility]) [employer] 12/08/22 12/08/22 12/08/22 17:39 17:39 19:33 MCV MCH MCHC RDW Plt Count MPV Immature Gran % (Auto) Neut % (Auto) Lymph % (Auto) [place]ver % (Auto) Eos % (Auto) Baso % (Auto) Lymph # (Auto) Carver # (Auto) Eos # (Auto) Baso # (Auto) Abs Immat Gran (auto) Absolute Neuts (auto) Absolute Nucleated RBC Nucleated RBC % (auto) PT Whole Blood PT INR Whole Blood INR Anion Gap Estim Creat Clear Calc Estimated GFR POC Glucose Random Glucose Calcium Magnesium Total Bilirubin Direct Bilirubin AST ALT Alkaline Phosphatase Ammonia 31 Troponin I High Sens Total Protein Albumin Triglycerides Cholesterol LDL Cholesterol, Calc HDL Cholesterol Urine Color Yellow Urine Appearance Clear Urine pH 7.5 Ur Specific [place] >= 1.030 H Urine Protein Negative Urine Glucose (UA) Negative Urine Ketones Negative Urine Blood Negative Urine Nitrite Negative Ur Leukocyte Esterase Negative Urine Opiates Screen Urine Fentanyl Screen Ur Barbiturates Screen Ur Phencyclidine Scrn Ur Amphetamines Screen U Benzodiazepines Scrn Urine Cocaine Screen U Marijuana (THC) Screen Ethyl Alcohol COVID-19 ([facility]) Negative COVID-19 Clin Com See Note 12/08/22 12/09/22 19:33 06:07 MCV MCH MCHC RDW Plt Count MPV Immature Gran % (Auto) Neut % (Auto) Lymph % (Auto) Carver % (Auto) Eos % (Auto) Baso % (Auto) Lymph # (Auto) Carver # (Auto) Eos # (Auto) Baso # (Auto) Abs Immat Gran (auto) Absolute Neuts (auto) Absolute Nucleated RBC Nucleated RBC % (auto) PT Whole Blood PT INR Whole Blood INR Anion Gap Estim Creat Clear Calc Estimated GFR POC Glucose Random Glucose Calcium Magnesium Total Bilirubin Direct Bilirubin AST ALT Alkaline Phosphatase Ammonia Troponin I High Sens Total Protein Albumin Triglycerides 63 Cholesterol 166 LDL Cholesterol, Calc 101 HDL Cholesterol 53 Urine Color Urine Appearance Urine pH Ur Specific [place] Urine Protein Urine Glucose (UA) Urine Ketones Urine Blood Urine Nitrite Ur Leukocyte Esterase Urine Opiates Screen Not Detected Urine Fentanyl Screen Not Detected Ur Barbiturates Screen Not Detected Ur Phencyclidine Scrn Not Detected Ur Amphetamines Screen Not Detected U Benzodiazepines Scrn Not Detected Urine Cocaine Screen Not Detected U Marijuana (THC) Screen Not Detected Ethyl Alcohol COVID-19 ([facility]) COVID-19 Clin Com Assessment and Plan (1) Left-sided weakness: Status: Acute Plan Pt is a 77-year-old male with a PMH significant for?CVA in March of 2020, Alzheimer's, pacemaker, cirrhosis, and history of polysubstance abuse now clean for many years who presents to the ED after an episode confusion and right-sided facial droop and?weakness. Pt will be admitted to telemetry for treatment and evaluation of CVA. Left side weakness/left facial droop CTA shows occlusion of the proximal superior M2 division of the right middle cerebral artery, and interval recanalization of the previously occluded left M2 branch CTA from 04/04/2020 Symptoms resolved on arrival to ED, NIH score 0, no indication for tPA Case discussed with [facility] neurology by ED provider, not accepted in transfer, recommend to Stop Xarelto and switch to Eliquis Continue high intensity statin seen by PT, no therapy needed neuro consult, echo pending has PM, does not have card with her, unclear if MRI compatible, hold off on MRI for now Paroxysmal atrial fibrillation s/p pacemaker Stop Xarelto and switch to Eliquis as above continue metoprolol Admit to telemetry Alzheimer's dementia/mood oriented to person - at baseline per Continue home meds Full Code Attending:?Dr. David DVT Prophylaxis: Eliquis requires ongoing inpatient hospitalization for workup / specialist evaluation for left-sided weakness and possible stroke Time Spent With Patient Time: Total time managing care of this patient today ____ minutes. Quality Stroke Does the patient have a stroke diagnosis?: Yes Reason for No Anti-thrombotic by Day Two: Contraindicated (Pt has NIH score of 0 at time of presentation to the ED.) VTE Prior VTE?: No VTE Risk Level:: Medical - moderate - high VTE Device Contraindication: Treatment Not Indicated VTE Drug Contraindication: N/A - Med Ordered
[2022-12-09 12:00] VITALS: BP 139/82; PULSE 82; RESP 20; TEMP 36.7; O2SAT 98
--- NOTE | 2022-12-09 12:41 | P.CNNE_ITS ---
History of Present Illness Data of Consult Service Date: 12/09/22 Primary Care Provider: Jairon Whitlock III, MD HPI Reason for consult: TIA 77 years old man known to me for at Alzheimer dementia that has been progressing over the years. He also has been taking anticoagulation for atrial fibrillation. He came to hospital last night with new onset of left-sided weakness that improved while he was in hospital. Imaging revealed right middle cerebral artery lesion but because of improvement and significant delay intravenous tPA was not considered an intra arterial also was not a plausible option, after discussing with [facility]. His stated that he was getting worse. Review of Systems Review of Systems: Could not be done with [facility] Past Medical History Medical History Alzheimer's dementia Atrial fibrillation Chronic anticoagulation Cirrhosis CVA (cerebral vascular accident) Hepatic encephalopathy Hypertension Pacemaker Social History Social History Household Members: Spouse Housing: Apartment Do you presently have visiting nurse or other home services: No Patient Tobacco Use Status: Former Tobacco user Smoked in Last 30 Days: No Use of substances other than those prescribed or required for medical reasons: No Currently Displaying Signs/Symptoms of Drug Intoxication Withdrawal: No Have you been hit, kicked, punched, or otherwise hurt by someone within the past year? If so, by whom?: No Do you feel safe in your current relationship?: Yes Is there a partner from a previous relationship who is making you feel unsafe now?: No Are you made to feel afraid or neglected: No Spiritual Healthcare Practices: Judaism Advance Directives: Yes Advance Directives Information Provided: No Advance Directives on File: No Advance Directives Date on File: 12/09/22 Do you have thoughts of harming others: None Do you have a plan to hurt others: No Plan Recently lost weight without trying: No Nutrition Risks: No Nutritional Risk Meds Allergies Allergy/AdvReac Type Severity Reaction Status Date / Time No Known Allergies Allergy Verified 12/08/22 17:27 [No Known Allergies*] Active Medications: Current Medications Acetaminophen (Acetaminophen 325 Mg Tablet) 650 mg PO Q6H PRN PRN Reason: Pain, Mild (Pain Scale 1-3) Apixaban (Apixaban 5 Mg Tablet) 5 mg PO BID [facility] Last Admin: 12/09/22 09:39 Dose: 5 mg Calcium Carbonate/Cholecalciferol (Calcium + Vitamin D 250 Mg Tablet) 500 mg PO DAILY [facility] Last Admin: 12/09/22 09:40 Dose: 500 mg Docusate Sodium (Docusate Sodium 100 Mg Capsule) 100 mg PO DAILY PRN PRN Reason: Constipation Ferrous Sulfate (Ferrous Sulfate 324 Mg Tablet.Dr) 324 mg PO DAILY [facility] Last Admin: 12/09/22 09:39 Dose: 324 mg Gabapentin (Gabapentin 600 Mg Tablet) 600 mg PO BID [facility] Last Admin: 12/09/22 09:39 Dose: 600 mg Memantine (Memantine Hcl 10 Mg Tablet) 10 mg PO BID [facility] Last Admin: 12/09/22 09:39 Dose: 10 mg Metoprolol Succinate (Metoprolol Succinate Er 50 Mg Tab.Er.24h) 50 mg PO DAILY [facility]; Protocol Last Admin: 12/09/22 09:39 Dose: 50 mg Non-Formulary Medication (Donepezil) 1 tab PO DAILY [facility] Potassium Chloride (Potassium Chloride Er 20 Meq Tab.Er.Prt) 20 meq PO DAILY [facility] Last Admin: 12/09/22 09:39 Dose: 20 meq Quetiapine Fumarate (Quetiapine Fumarate 25 Mg Tablet) 25 mg PO BID [facility] Last Admin: 12/09/22 09:39 Dose: 25 mg Sertraline HCl (Sertraline Hcl 50 Mg Tablet) 50 mg PO DAILY [facility] Last Admin: 12/09/22 09:39 Dose: 50 mg Spironolactone (Spironolactone 25 Mg Tablet) 25 mg PO DAILY [facility]; Protocol Last Admin: 12/09/22 09:39 Dose: 25 mg Home Medications Medication Instructions Recorded Confirmed Last Taken Type calcium carbonate 500 mg-vitamin 1 tab PO DAILY 12/08/22 12/08/22 Unknown History D3 10 mcg (400 unit) tablet (Calcium 500 With D) desonide 0.05 % topical cream 1 appl topical BID 12/08/22 12/08/22 Unknown History donepezil 23 mg tablet 1 tab PO DAILY 12/08/22 12/08/22 Unknown History ferrous sulfate 325 mg (65 mg 1 tab PO DAILY 12/08/22 12/08/22 Unknown History iron) tablet (FeroSul) gabapentin 600 mg tablet 1 tab PO BID 12/08/22 12/08/22 Unknown History memantine 10 mg tablet 1 tab PO BID 12/08/22 12/08/22 Unknown History metoprolol succinate 50 mg 1 tab PO DAILY 12/08/22 12/08/22 Unknown History tablet,extended release 24 hr potassium chloride 20 mEq 1 tab PO DAILY 12/08/22 12/08/22 Unknown History tablet,extended release(part/cryst) quetiapine 25 mg tablet 1 tab PO BID 12/08/22 12/08/22 Unknown History rivaroxaban 20 mg tablet (Xarelto) 1 tab PO DAILY 12/08/22 12/08/22 Unknown History sertraline 50 mg tablet 1 tab PO DAILY 12/08/22 12/08/22 Unknown History spironolactone 50 mg tablet 0.5 tab PO DAILY 12/08/22 12/08/22 Unknown History Physical Exam Vital Signs: Vital Signs: Last Vital Signs Temp 98.0 F 12/09/22 12:00 Pulse 82 12/09/22 12:00 Resp 20 12/09/22 12:00 BP 139/82 12/09/22 12:00 Pulse Ox 98 12/09/22 12:00 O2 Del Method 12/09/22 12:00 BMI result Body Mass Index 31.0 Neuro: Other: He was drowsy and confused. He was complaining of generalized body pain. There was no obvious focal arm or leg weakness. Deep tendon reflexes were absent. Results Labs 12/08/22 17:20 12/08/22 17:20 Labs: Short CBC 12/08/22 Range/Units 17:20 WBC 5.2 (4.8-10.8) X10*3/uL Hgb 11.8 L (14.0-18.0) g/dl Hct 35.9 L (42.0-52.0) % Plt Count 127 L (160-400) X10*3/uL BMP 12/08/22 17:20 Sodium 140 Potassium 3.7 Chloride 108 Carbon Dioxide 25 BUN 8 L Creatinine 0.74 Calcium 8.0 L Liver Function 12/08/22 Range/Units 17:20 Total Bilirubin 0.4 (0.0-1.0) mg/dL Direct Bilirubin < 0.2 (0.0-0.5) mg/dL AST 17 (5-37) U/L ALT 9 (0-40) U/L Alkaline Phosphatase 113 (39-117) U/L Albumin 3.0 L (3.5-5.0) g/dL Urine 12/08/22 Range/Units 19:33 Urine Color Yellow Urine Appearance Clear Urine pH 7.5 (5.0-9.0) Ur Specific [place] >= 1.030 H (1.005-1.025) Urine Protein Negative (Neg-Trace) mg/dL Urine Glucose (UA) Negative (Negative) mg/dL Noncontrast head CT revealed moderately severe diffuse cerebral atrophy and microvascular changes. There was no obvious acute lesion. CTA of brain revealed chronic left M2 and recent or interval right M2 occlusion. Assessment and Plan (1) Left-sided weakness: Status: Acute 77 years old man with severe dementia from at [facility] and vascular causes, also atrial fibrillation treated with anticoagulation, came to hospital with new onset of left-sided weakness that improved. His imaging revealed right M2 stenosis/occlusion and chronic left M2 occlusion. I have known this patient for number of years. My recommendation at this time is to continue anticoagulation but discontinue statin. Statin would not make any significant difference with significant dementia. Also he has been complaining of chronic body pain, which might be related to statin. I talked to his is and suggested that he should probably be in a residential setting as she would have difficulty taking care of him. She was hesitant but I would recommend that social work instructor should talk to her and maybe provide some services at home. (2) Severe dementia: Status: Acute (3) Multifactorial dementia: Status: Acute (4) Alzheimer's dementia: Status: Acute (5) Intracranial atherosclerosis: Status: Acute (6) Middle cerebral artery stenosis: Status: Acute (7) Transient ischemic attack: Status: Acute Time Spent With Patient Time: Total time managing care of this patient today ____ minutes. Procedures Date of Service Date of Service: 12/09/22
--- NOTE | 2022-12-09 12:44 | PM.DS ---
DS: Providers Provider Date of Service: 12/09/22 Date of admission: 12/08/22 22:15 Date of discharge: 12/09/22 Primary care physician: Jairon Whitlock III, MD Consults: 12/08/22 22:15 Consult to Neurology Routine Consulting Provider: [facility] Reason for consultation: CVA Has provider been notified: No Attending physician on discharge: Simeon David Discharging clinician: Kylee Miguel DS: Diagnosis Discharge Diagnosis (1) Left-sided weakness: Status: Acute DS: Summary Hospital Course Hospital Course: From H&P on day of admission Pt is a 77-year-old male with a PMH significant for?CVA in March of 2020, Alzheimer's, pacemaker, cirrhosis, and history of polysubstance abuse now clean for many years who presents to the ED after an episode confusion and right-sided facial droop and?weakness. Patient has dementia with some confusion at baseline so HPI chiefly obtained from his who is at his bedside.? 45 minutes prior to arrival in the ED the patient was found by another resident in his apartment building's elevator, confused holding onto the railing. EMS arrived and found the patient could not speak, recognize anyone, or move the entirety of the right side of his body.? The patient was also noted to have a right-sided facial droop.? The patient's symptoms quickly resolved so and by the time EMS arrived to the ED the patient was still confused but able to speak in complete sentences.? Patient continued to improve in the ED and by the time his CT scan was done his NIH score was 0 with only a very mild deficit in the upper left and lower extremities with a strength of 4/5.? Currently patient has no acute complaints.? No lightheadedness, dizziness, headache.? No vision changes or blurriness.? No dysarthria, dysphagia.? Denies any chest pain/pressure, palpitations.? No abdominal pain.? 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 Patient was then seen at [facility]. In the ED labs were largely unremarkable.? CT of the head showed left maxillary sinus disease but no acute intracranial pathology.? CTA head and neck showed occlusion the proximal superior M2 division of the right middle cerebral artery and an interval recanalization of the previously occluded left M2 branch since CTA from 04/04/2020. Pt's NIH score was 0 upon his arrival so no tPA given.? Of note patient was seen at [facility] for his CVA on 04/04/2020.? ED contacted [facility] spoke with Dr. Prieto from Neurology about potential transfer of patient.? After reviewing today's CTA Dr. Prieto noted that the patient has M2 clot but has patent collateral arteries in thus recommended not to transfer him.? He did suggest to switch from Xarelto to Eliquis.? Pt will be admitted to the hospital for treatment and evaluation of possible CVA. left side weakness patient was admitted to the hospital. He had no further recurrence of symptoms. As above [facility] neurology stated he had collateral circulation and no need for intervention of occlusion. He was seen in consultation by Neurology and is well known to their service. He is currently back to baseline and no further workup is recommended at this time. Per [facility] Neurology they had recommended to change blood thinner from Xarelto to Eliquis. Patient will be discharged home with Eliquis and was discharged with coupon for 1st 30 days. Per neurology recommend to discontinue statin as patient has long history of generalized body pain and does not tolerate. Patient was seen in consultation by Physical therapy who recommended home with no services. Patient's did inquire about additional assistance at home, recommended to reach out to the patient's PCP to assist with obtaining additional services via [employer] due to patient's underlying dementia. No other medication changes were made. Recommend to call and schedule follow up appointment with PCP. Time Spent with Patient Time attestation: Total time managing care of this patient today ____ minutes. Discharge coordination time: Greater than 30 minutes Quality: Safe Use of Opioids Does Pt have an Active Cancer Diagnosis on the Problem List?: No Quality: Stroke Does the patient have a stroke diagnosis?: No Physical Exam Vital Signs: Vital Signs: Last Vital Signs Temp 98.0 F 12/09/22 12:00 Pulse 82 12/09/22 12:00 Resp 20 12/09/22 12:00 BP 139/82 12/09/22 12:00 Pulse Ox 98 12/09/22 12:00 O2 Del Method 12/09/22 12:00 BMI result Body Mass Index 31.0 Const: General: cooperative, comfortable, alert and awake Orientation/consciousness: oriented to person Resp: Effort & Inspection: normal respiratory effort and able to speak in complete sentences Cardio: Rate: regular rate GI: Palpation (GI): not soft and nontender Neuro: Other: face symmetrical, tongue midline, Speech clear.hand grasp Equal bilaterally, able to move all 4 extremities; bilateral upper extremities equal 5/5, slight weakness in left lower extremity compared to right General: oriented to person Extrem: General: Yes no pedal edema DS: Data Data Completed and Pending Labs on day of discharge: Laboratory Results - last 24 hr 12/08/22 12/08/22 12/08/22 17:20 17:20 17:20 WBC 5.2 RBC 3.71 L Hgb 11.8 L Hct 35.9 L MCV 96.8 MCH 31.8 MCHC 32.9 RDW 13.5 Plt Count 127 L MPV 10.0 Immature Gran % (Auto) 0.4 Neut % (Auto) 57.7 Lymph % (Auto) 27.5 [place] % (Auto) 10.7 Eos % (Auto) 3.3 Baso % (Auto) 0.4 Lymph # (Auto) 1.4 [place] # (Auto) 0.6 Eos # (Auto) 0.2 Baso # (Auto) 0.0 Abs Immat Gran (auto) 0.02 Absolute Neuts (auto) 3.0 Absolute Nucleated RBC 0.000 Nucleated RBC % (auto) 0.0 PT 12.7 Whole Blood PT INR 1.1 Whole Blood INR Sodium 140 Potassium 3.7 Chloride 108 Carbon Dioxide 25 Anion Gap 11 L BUN 8 L Creatinine 0.74 Estim Creat Clear Calc 93.7 Estimated GFR > 60 POC Glucose Random Glucose 97 Calcium 8.0 L Magnesium 1.8 Total Bilirubin 0.4 Direct Bilirubin < 0.2 AST 17 ALT 9 Alkaline Phosphatase 113 Ammonia Troponin I High Sens Total Protein 5.7 L Albumin 3.0 L Triglycerides Cholesterol LDL Cholesterol, Calc HDL Cholesterol Urine Color Urine Appearance Urine pH Ur Specific [place] Urine Protein Urine Glucose (UA) Urine Ketones Urine Blood Urine Nitrite Ur Leukocyte Esterase Urine Opiates Screen Urine Fentanyl Screen Ur Barbiturates Screen Ur Phencyclidine Scrn Ur Amphetamines Screen U Benzodiazepines Scrn Urine Cocaine Screen U Marijuana (THC) Screen Ethyl Alcohol < 10 COVID-19 ([facility]) COVID-19 Clin Com 12/08/22 12/08/2212/08/23 17:20 17:25 17:27 WBC RBC Hgb Hct MCV MCH MCHC RDW Plt Count MPV Immature Gran % (Auto) Neut % (Auto) Lymph % (Auto) [place] % (Auto) Eos % (Auto) Baso % (Auto) Lymph # (Auto) [place] # (Auto) Eos # (Auto) Baso # (Auto) Abs Immat Gran (auto) Absolute Neuts (auto) Absolute Nucleated RBC Nucleated RBC % (auto) PT Whole Blood PT 13.4 INR Whole Blood INR 1.1 Sodium Potassium Chloride Carbon Dioxide Anion Gap BUN Creatinine Estim Creat Clear Calc Estimated GFR POC Glucose 108 Random Glucose Calcium Magnesium Total Bilirubin Direct Bilirubin AST ALT Alkaline Phosphatase Ammonia Troponin I High Sens < 3.5 Total Protein Albumin Triglycerides Cholesterol LDL Cholesterol, Calc HDL Cholesterol Urine Color Urine Appearance Urine pH Ur Specific [place] Urine Protein Urine Glucose (UA) Urine Ketones Urine Blood Urine Nitrite Ur Leukocyte Esterase Urine Opiates Screen Urine Fentanyl Screen Ur Barbiturates Screen Ur Phencyclidine Scrn Ur Amphetamines Screen U Benzodiazepines Scrn Urine Cocaine Screen U Marijuana (THC) Screen Ethyl Alcohol COVID-19 ([facility]) COVID-19 PreApps 12/08/22 12/08/22 12/08/22 17:39 17:39 19:33 WBC RBC Hgb Hct MCV MCH MCHC RDW Plt Count MPV Immature Gran % (Auto) Neut % (Auto) Lymph % (Auto) [place] % (Auto) Eos % (Auto) Baso % (Auto) Lymph # (Auto) [place] # (Auto) Eos # (Auto) Baso # (Auto) Abs Immat Gran (auto) Absolute Neuts (auto) Absolute Nucleated RBC Nucleated RBC % (auto) PT Whole Blood PT INR Whole Blood INR Sodium Potassium Chloride Carbon Dioxide Anion Gap BUN Creatinine Estim Creat Clear Calc Estimated GFR POC Glucose Random Glucose Calcium Magnesium Total Bilirubin Direct Bilirubin AST ALT Alkaline Phosphatase Ammonia 31 Troponin I High Sens Total Protein Albumin Triglycerides Cholesterol LDL Cholesterol, Calc HDL Cholesterol Urine Color Yellow Urine Appearance Clear Urine pH 7.5 Ur Specific [place] >= 1.030 H Urine Protein Negative Urine Glucose (UA) Negative Urine Ketones Negative Urine Blood Negative Urine Nitrite Negative Ur Leukocyte Esterase Negative Urine Opiates Screen Urine Fentanyl Screen Ur Barbiturates Screen Ur Phencyclidine Scrn Ur Amphetamines Screen U Benzodiazepines Scrn Urine Cocaine Screen U Marijuana (THC) Screen Ethyl Alcohol COVID-19 ([facility]) Negative COVID-19 Clin Com See Note 12/08/22 12/09/22 19:33 06:07 WBC RBC Hgb Hct MCV MCH MCHC RDW Plt Count MPV Immature Gran % (Auto) Neut % (Auto) Lymph % (Auto) [place] % (Auto) Eos % (Auto) Baso % (Auto) Lymph # (Auto) [place] # (Auto) Eos # (Auto) Baso # (Auto) Abs Immat Gran (auto) Absolute Neuts (auto) Absolute Nucleated RBC Nucleated RBC % (auto) PT Whole Blood PT INR Whole Blood INR Sodium Potassium Chloride Carbon Dioxide Anion Gap BUN Creatinine Estim Creat Clear Calc Estimated GFR POC Glucose Random Glucose Calcium Magnesium Total Bilirubin Direct Bilirubin AST ALT Alkaline Phosphatase Ammonia Troponin I High Sens Total Protein Albumin Triglycerides 63 Cholesterol 166 LDL Cholesterol, Calc 101 HDL Cholesterol 53 Urine Color Urine Appearance Urine pH Ur Specific [place] Urine Protein Urine Glucose (UA) Urine Ketones Urine Blood Urine Nitrite Ur Leukocyte Esterase Urine Opiates Screen Not Detected Urine Fentanyl Screen Not Detected Ur Barbiturates Screen Not Detected Ur Phencyclidine Scrn Not Detected Ur Amphetamines Screen Not Detected U Benzodiazepines Scrn Not Detected Urine Cocaine Screen Not Detected U Marijuana (THC) Screen Not Detected Ethyl Alcohol COVID-19 ([facility]) COVID-19 Clin Com Discharge Plan Discharge Anticipated Discharge Date/Time: 12/09/22 12:39 Patient Disposition: Home, Self-Care Discharge Diagnosis: left side weakness Referrals: Jairon Whitlock III, MD [Primary Care Provider] - 1 Week Discharge Medications: New Eliquis 5 mg Tablet 5 mg PO BID 30 Days Qty: 60 0RF Continued quetiapine 25 mg tablet 1 tab PO BID desonide 0.05 % cream 1 appl topical BID gabapentin 600 mg tablet 1 tab PO BID metoprolol succinate 50 mg tablet extended release 24 hr 1 tab PO DAILY potassium chloride 20 mEq tablet,ER particles/crystals 1 tab PO DAILY ferrous sulfate [FeroSul] 325 mg (65 mg iron) tablet 1 tab PO DAILY sertraline 50 mg tablet 1 tab PO DAILY spironolactone 50 mg tablet 0.5 tab PO DAILY memantine 10 mg tablet 1 tab PO BID calcium carbonate-vitamin D3 [Calcium 500 With D] 500 mg-10 mcg (400 unit) tablet 1 tab PO DAILY donepezil 23 mg tablet 1 tab PO DAILY Discontinued Xarelto 20 mg tablet 1 tab PO DAILY Discharge Orders: Discharge Order (Routine); Ordered 12/09/22 Ordered By: Kylee Miguel Activity on Discharge: As tolerated Stand Alone Forms: Patient Portal Discharge page Care Plan Goals: see below Health Concerns: left side weakness/left facial droop - resolved Plan of Treatment: Per [facility] neurology recommend to switch blood thinner from xarelto to eliquis. do not take Xarelto, Start taking Eliquis as prescribed. Coupon card given for 1st 30 days call to schedule follow-up appointment with PCP seen by Physical therapy, did not recommend any home physical therapy. Discuss with PCP need for more assistance at home via [employer] No statin per neurology due to history of body pain Assessment: symptoms resolved, back to baseline Discharge Date/Time: 12/09/22 14:25
--- NOTE | 2022-12-09 13:24 | MHC.CM.PN ---
Addendum entered by Serena Pena 12/09/22 13:27: PT WILL NOW BE ON ELIQUIS INSTEAD OF XARELTO 30 COUPON PROVIDED ALONG WITH INSTRUCTIONS ON USE Original Note: CM MET WITH PTS AT BEDSIDE SHE DECLINES [employer] SHE REPORTS PT LIVES AT HOME WITH HER AND SHE PROVIDES HIS CARE HE DOES HAVE A INTERIM CONTROLLER THAT COMES IN TO DO LAUNDRY AND HEAVY CHORES BUT NOT PERSONAL CARE SHE IS AWARE PTS PCP CAN MAKE A REFERRAL TO [facility] FOR NEWS REPORTER HOURS SHE IS AWARE PT WILL DC TODAY BLS TRANSPORT ARRANGED VIA [facility] FOR 1500 HOURS SHE WILL LEAVE BEFORE THAT TO MEET HIM AT HOME
== END 2022-12-09 14:25 | disposition home or self-care (01) | DRG 68 ==
LOC: HO.ED 19:56 → HO.EDOVER 22:23 → HO.IMC 12-09 01:22
PROVIDERS: Internal Medicine; Admitting Provider Student in an Organized Health Care Education/Training Program; Emergency Provider Emergency Medicine; PCP Internal Medicine; Visit Provider Physician Assistant Medical
DX: I66.01 Occlusion and stenosis of right middle cerebral artery (principal); G81.94 Hemiplegia, unspecified affecting left nondominant side; J32.0 Chronic maxillary sinusitis; I48.0 Paroxysmal atrial fibrillation; G30.9 Alzheimer's disease, unspecified; I67.2 Cerebral atherosclerosis; F02.C0 Dementia in other diseases classified elsewhere, severe, without behavioral disturbance, psychotic disturbance, mood disturbance, and anxiety; Z20.822 Contact with and (suspected) exposure to COVID-19; Z87.891 Personal history of nicotine dependence; Z79.01 Long term (current) use of anticoagulants; Z79.899 Other long term (current) drug therapy
CPT/HCPCS: 36415; 70450; 70496; 70498; 80048; 80061; 80076; 80307; 81003; 82077; 82140; 82947; 83735; 84484; 85025; 85610; 87635; 93005; 97162; 99222; 99285; Q9967

== ENCOUNTER 2024-11-25 00:50 | Emergency (ER) | payer OTHER, SELFPAY ==
[2024-11-25 01:11] VITALS: BP 90/60; PULSE 76; RESP 18; TEMP 36.6; O2SAT 98; BMI 31.1
[2024-11-25 01:44] VITALS: BP 110/67; PULSE 81; RESP 15; TEMP 36.9; O2SAT 98
--- NOTE | 2024-11-25 02:49 | ED.GENADULT ---
HPI - General Adult General Chief complaint: Overdose Stated complaint: OD on prescribed meds, Alzheimer's disease Time Seen by Provider: 11/25/24 02:49 History of Present Illness ED Provider: Rufina STUBBS narrative: The patient is a 79-year-old man with a history of dementia who lives with his who helps look after him. The patient's says that tonight patient accidentally took an additional dose of apixaban, quetiapine, pregabalin, and docusate. This was an accidental over dose of these medications. The patient's who is worried that there were be spontaneous bleeding as a result of the additional dose of apixaban and brought him to the emergency room. She drove him here. The patient has not had any complaints. The patient's behavior has remained at baseline. The patient denies a headache. He denies chest pain. Denies abdominal pain. There has been no sign of any bleeding. Related Data Home Medications ?Medication ?Instructions ?Recorded ?Confirmed calcium 500 mg (as 1 tab PO DAILY 12/08/22 12/08/22 carbonate)-vitamin D3 10 mcg (400 unit) tablet (Calcium 500 With D) desonide 0.05 % topical cream 1 appl topical BID 12/08/22 12/08/22 donepezil 23 mg tablet 1 tab PO DAILY 12/08/22 12/08/22 ferrous sulfate 325 mg (65 mg 1 tab PO DAILY 12/08/22 12/08/22 iron) tablet (FeroSul) gabapentin 600 mg tablet 1 tab PO BID 12/08/22 12/08/22 memantine 10 mg tablet 1 tab PO BID 12/08/22 12/08/22 metoprolol succinate 50 mg 1 tab PO DAILY 12/08/22 12/08/22 tablet,extended release 24 hr potassium chloride 20 mEq 1 tab PO DAILY 12/08/22 12/08/22 tablet,extended release(part/cryst) quetiapine 25 mg tablet 1 tab PO BID 12/08/22 12/08/22 sertraline 50 mg tablet 1 tab PO DAILY 12/08/22 12/08/22 spironolactone 50 mg tablet 0.5 tab PO DAILY 12/08/22 12/08/22 Previous Rx's ?Medication ?Instructions ?Recorded apixaban 5 mg tablet (Eliquis) 5 mg PO BID 30 days #60 tabs 12/09/22 Allergies Allergy/AdvReac Type Severity Reaction Status Date / Time No Known Allergies Allergy Verified 11/25/24 01:17 [No Known Allergies*] Review of Systems Review of Systems: Yes all other systems are reviewed and are negative [facility] Past Medical History Medical History Alzheimer's dementia Atrial fibrillation Chronic anticoagulation Cirrhosis CVA (cerebral vascular accident) Hepatic encephalopathy Hypertension Pacemaker Social History Social History Household Members: Spouse Housing: Apartment Do you presently have visiting nurse or other home services: No Patient Tobacco Use Status: Former Tobacco user Smoked in Last 30 Days: No Use of substances other than those prescribed or required for medical reasons: No Advance Directives: Yes Advance Directives Information Provided: Yes Advance Directives on File: No Advance Directives Date on File: 12/09/22 Do you have a plan to hurt others: No Plan service: No Current occupational status: retired Physical Exam ED Vital Signs: Vital Signs - 24 hr 11/25/24 01:11 11/25/24 01:44 11/25/24 03:00 Temperature 97.8 F 98.4 F 98.7 F Pulse Rate 76 81 73 Respiratory Rate 18 15 16 Blood Pressure 90/60 110/67 133/82 Pulse Oximetry 98 98 100 Oxygen Delivery Method Room Air Room Air Room Air 11/25/24 03:15 Temperature 98.7 F Pulse Rate 73 Respiratory Rate 16 Blood Pressure 133/82 Pulse Oximetry 100 Oxygen Delivery Method Room Air BMI result Body Mass Index 31.1 Const Other: The patient was sleeping. He awoke easily with gentle stimulation. When awake the patient seems to be a pleasantly demented 79-year-old. He did not seem in distress. He followed commands in the very docile manner. HENMT Other: Face is symmetrical. Mucous membranes moist. Eyes General: appearance normal, both eyes and all related structures Conjunctivae: conjunctivae normal EOM: EOMs intact bilaterally Neck Other: Moving his neck easily. No JVD. Resp Effort & Inspection: normal respiratory effort Auscultation: clear to auscultation bilaterally Cardio Rate: regular rate Rhythm: regular rhythm Heart sounds: S1 normal heart sound present and S2 normal heart sound present GI Other: Abdomen is soft and nontender Skin Other: Skin is dry and unremarkable Neuro Other: The patient was sleeping comfortably. He awoke easily with gentle stimulation. He seems pleasantly demented. Cranial nerves are grossly intact. He moves his extremities symmetrically. He seems reasonably steady on his feet with simple assistance. His states that he is at his neurological baseline. Extrem Other: No calf swelling or tenderness. No peripheral edema. Medical Decision Making Medical Decision Making MDM Narrative: The patient is a 79-year-old male who accidentally took an additional single dose of several of his medications including apixaban, quetiapine, pregabalin, and docusate. His was concerned about the possibility of bleeding. He has not had any of bleeding. He is reasonably steady on his feet. I do not think there is any indication for testing or necessarily any further observation in the emergency room. His was reassured. She feels comfortable bringing him home. She was advised that she should take extra care to make sure he does not fall tonight. He should skip his morning dose of Eliquis later this morning. He may resume his Eliquis this evening. Discharge Plan Discharge Clinical Impression: Accidental overdose Patient Disposition: Home, Self-Care Additional Instructions: I do not think that the single extra dose of all the medications that he took is likely to be dangerous. Please plan on skipping his morning dose of Eliquis/apixaban. Please be very careful bringing him home. It is important he does not fall down or injure himself. Please try to get a friend to help you get him into the building at home. Call your regular doctor's office for any additional questions. Return to the emergency room if worse. Prescriptions: No Action quetiapine 25 mg tablet 1 tab PO BID desonide 0.05 % cream 1 appl topical BID gabapentin 600 mg tablet 1 tab PO BID metoprolol succinate 50 mg tablet extended release 24 hr 1 tab PO DAILY potassium chloride 20 mEq tablet,ER particles/crystals 1 tab PO DAILY ferrous sulfate [FeroSul] 325 mg (65 mg iron) tablet 1 tab PO DAILY sertraline 50 mg tablet 1 tab PO DAILY spironolactone 50 mg tablet 0.5 tab PO DAILY memantine 10 mg tablet 1 tab PO BID calcium carbonate-vitamin D3 [Calcium 500 With D] 500 mg-10 mcg (400 unit) tablet 1 tab PO DAILY donepezil 23 mg tablet 1 tab PO DAILY Eliquis 5 mg Tablet 5 mg PO BID 30 Days Qty: 60 0RF Referrals: Jairon Whitlock III, MD [Physician] - Interventions: ED Discharge Assessment Last Done: 11/25/24 03:15 Discharge Date/Time: 11/25/24 03:15 Print Language: Burundian
[2024-11-25 03:00] VITALS: BP 133/82; PULSE 73; RESP 16; TEMP 37.1; O2SAT 100
[2024-11-25 03:15] VITALS: BP 133/82; PULSE 73; RESP 16; TEMP 37.1; O2SAT 100
== END 2024-11-25 03:15 | disposition home or self-care (01) ==
PROVIDERS: Emergency Provider Emergency Medicine
DX: R26.81 Unsteadiness on feet (principal); T43.591A Poisoning by other antipsychotics and neuroleptics, accidental (unintentional), initial encounter; Y92.89 Other specified places as the place of occurrence of the external cause; T47.4X1A Poisoning by other laxatives, accidental (unintentional), initial encounter; G30.9 Alzheimer's disease, unspecified; F02.80 Dementia in other diseases classified elsewhere, unspecified severity, without behavioral disturbance, psychotic disturbance, mood disturbance, and anxiety; Z79.899 Other long term (current) drug therapy
CPT/HCPCS: 99285

== ENCOUNTER 2024-12-31 11:25 | Emergency (ER) | payer OTHER, SELFPAY ==
[2024-12-31 11:39] VITALS: BP 110/77; PULSE 92; O2SAT 98
[2024-12-31 11:40] VITALS: BP 101/71; PULSE 68; RESP 18; TEMP 36.6; O2SAT 99
[2024-12-31 12:00] VITALS: BP 110/77; PULSE 92; RESP 18; TEMP 36.7; O2SAT 98; BMI 26.6
--- NOTE | 2024-12-31 12:20 | PC.NURSE ---
Pt nish has sent patient to ER per request of pts [employer] hand suture winder Nazia Sher ([phone]). d/t anxiety can no longer care for him at home and would like him in a memory care unit. Nazia office started process of paperwork for a facility but in the interm recommended pt go to ER to be have patient placed into a short stay [facility] care until the transfer can occur. HOUSEHOLD PERSONAL ASSISTANT from [facility] [phone] is aware of situation as well.
--- OUTSIDE RECORDS SUMMARY | 2024-12-31 14:03 | XMS_ITS | Encounter Summary ---
Author Organization [employer] Address [address] [place] [address] Care Team Providers Care Shingle Inspector Name Role Phone Jairon Whitlock MD Primary Care Provider [phone] Reason for Visit * Reason Comments Follow-up 6 mo Hypertension Encounter Details Date Type Department Care Team ([facility] Contact Info) Description 12/16/2024 11:30 AM EST Office Visit Adult Medicine [address] [phone] Jairon Whitlock MD [address] [place] [id number] Severe dementia with other behavioral disturbance, unspecified dementia type (CMS/HCC) (Primary Dx); Primary hypertension; Neuropathy; Tremor; Atrial fibrillation, unspecified type (CMS/HCC); Wheeze Social History Tobacco Use Types Packs/Day Years Used Date Smoking Tobacco: Former Smokeless Tobacco: Former Tobacco Cessation:Counseling Given: Not Answered Alcohol Use Standard Drinks/Week Comments Not Currently 0 (1 standard drink = 0.6 oz pur e alcohol) Sex and Gender Information Value Date Recorded Sex Assigned at Male 12/14/2024 11:49 PM EST Gender Identity Male 12/14/2024 11:49 PM EST Sexual Orientation Not on file Job Start Date Occupation Industry Not on file Not on file Not on file documented as of this encounter Last Filed Vital Signs Vital Sign Reading Time Taken Comments Blood Pressure 110/68 12/16/2024 11:12 AM EST Pulse 92 12/16/2024 11:12 AM EST Temperature 36.2 ??C (97.2 ??F) 12/16/2024 11:[address] Respiratory Rate 16 12/16/2024 11:12 AM EST Oxygen Saturation 98% 12/16/2024 11:12 AM EST Inhaled Oxygen Concentration - - Weight 91.4 kg (201 lb 9.6 oz) 12/16/2024 11:12 AM EST Height 167.6 cm (5' 6 ) 12/16/2024 11:12 AM EST Body Mass Index 32.54 12/16/2024 11:12 AM EST documented in this encounter Ordered Prescriptions Prescription Sig Dispensed Refills Start Date End Da te albuterol HFA (ProAir HFA) 90 mcg/actuation inhaler Inhale 2 puffs by mouth every 4 (four) hours if needed for wheezing or shortness of breath. 8.5 g 12/16/2024 12/16/2025 gabapentin (NEURONTIN) 300 mg capsule Take 1 capsule (300 mg total) by mouth at bedtime. 90 capsule 1 12/16/2024 cholecalciferol (VITAMIN D-3) 50 mcg (2,000 unit) tablet Take 1 tablet (2,000 Units total) by mouth 1 (one) time each day. 90 tablet 1 12/16/2024 docusate sodium (COLACE) 100 mg capsule Take 1 capsule (100 mg total) by mouth 1 (one) time each day. 90 each 1 12/16/2024 apixaban (Eliquis) 5 mg tablet Take 1 tablet (5 mg total) by mouth 2 (two) times a day. 180 each 1 12/16/2024 folic acid (FOLVITE) 1 mg tablet Take 1 tablet (1 mg total) by mouth 1 (one) time each day. 90 each 1 12/16/2024 documented in this encounter Progress Notes * Jairon Whitlock MD - 12/16/2024 11:30 AM EST CHIEF COMPLAINT: Follow-up (6 mo) and Hypertension IDENTIFIER: Vladimir Cruz is a 79 y.o. old male. HPI: Pt with advanced dementia pt of following with neuro Pt follows with neuro(valdo) Pt seen last year 08/2024 was told nothing else to offer notes symptoms are progressive Patient needs help with most of his ADL's having incontinence pt refused to wear diapers is having high pressure has had ER visit for chest pain diagnosed with anxiety Pt is starting the process of getting the patient admitted to a SNF Pt continues on memantine donezepil and seroquel Pt is sleeping well but goes bed late which is hard on the . 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 Pt with neuropathy pt wit pain all over notes pt appeared more comforable with gabapentin Pt is on lyrica 50 mg pt is c/o of pain pt with afib pt is on bb pt is rate controlled pulse92 today Pt is on AC with eliquis Pt follows with cards next appointment 08/2025 ROS: GENERAL: Negative for malaise, significant weight loss and fever RESPIRATORY: notes on occasion pt will have a whistle with breathing otherwise pt not short ofbreath CARDIOVASCULAR: Negative for chest pain, leg swelling and palpitations PSYCH: See HPI NEURO: See HPI PAST MEDICAL HISTORY: Patient Active Problem List Diagnosis Date Noted Snoring 04/30/2023 Sick sinus syndrome ([facility]/HCC) 10/24/2021 Chest pain 10/24/2021 Cirrhosis of liver without ascites ([facility]/HCC) 11/12/2020 Hypertension 02/11/2015 CHF (congestive heart failure) ([facility]/HCC) 02/11/2015 Atrial fibrillation ([facility]/HCC) 02/11/2015 Neuropathy 02/11/2015 Hep C w/o coma, chronic ([facility]) 02/11/2015 Dementia ([facility]) 02/11/2015 SOCIAL HISTORY: Social History Tobacco Use Smoking status: Former Smokeless tobacco: Former Substance Use Topics Alcohol use: Not Currently FAMILY HISTORY: No family status information on file. No family history on file. ACTIVE MEDICATIONS: Outpatient Medications Marked as Taking for the 12/16/24 encounter (Office Visit) with Jairon Whitlock MD Medication Sig Dispense Refill apixaban (Eliquis) 5 mg tablet Take 1 tablet (5 mg total) by mouth 2 (two) times a day. calcium carbonate-cholecalciferol 500 mg-10 mcg (400 unit) per tablet Take 1 tablet by mouth 1 (one) time each day. cholecalciferol (VITAMIN D-3) 50 mcg (2,000 unit) tablet TAKE 1 TABLET BY MOUTH DAILY 90 tablet 0 desonide (DESOWEN) 0.05 % cream APPLY TOPICALLY TO THE AFFECTED AREA TWICE DAILY 60 g 5 docusate sodium (COLACE) 100 mg capsule TAKE 1 CAPSULE BY MOUTH DAILY 90 capsule 1 donepeziL (ARICEPT) 23 mg tablet Take by mouth 1 (one) time each day. ferrous sulfate 325 mg (65 mg elemental iron) tablet Take 1 tablet (325 mg total) by mouth 1 (one) time each day. folic acid (FOLVITE) 1 mg tablet TAKE 1 TABLET BY MOUTH DAILY 90 tablet 0 gabapentin (NEURONTIN) 300 mg capsule Take 1 capsule (300 mg total) by mouth. hydrocortisone 2.5 % cream Apply to effected area bid ketorolac (ACULAR) 0.5 % ophthalmic solution loperamide (IMODIUM A-D) 2 mg tablet Take 1 tablet (2 mg total) by mouth. memantine (NAMENDA) 10 mg tablet Take 1 tablet (10 mg total) by mouth 2 (two) times a day. metoprolol succinate (TOPROL-XL) 50 mg 24 hr tablet TAKE 1 TABLET BY MOUTH DAILY 90 tablet 0 nitroglycerin (NITROSTAT) 0.4 mg SL tablet Take 1 tablet as needed for Chest Pain. If chest pain persists despite 1 tablet called 911. potassium chloride (KLOR-CON M20) 20 mEq CR tablet TAKE 1 TABLET BY MOUTH DAILY 90 tablet 0 pregabalin (LYRICA) 50 mg capsule Take 1 capsule (50 mg total) by mouth 2 (two) times a day. QUEtiapine (SEROquel) 25 mg tablet Take 1 tablet (25 mg total) by mouth 2 (two) times a day. sertraline (ZOLOFT) 50 mg tablet Take 1 tablet (50 mg total) by mouth 1 (one) time each day. silver sulfADIAZINE (SILVADENE, SSD) 1 % cream Applied to the perianal skin as a thin film twice daily spironolactone (ALDACTONE) 50 mg tablet TAKE 1/2 TABLET BY MOUTH DAILY 45 tablet 0 triamcinolone (KENALOG) 0.1 % cream Apply topically 2 (two) times a day. zinc oxide (Desitin Daily Defense) 13 % cream Apply 1 g topically. ALLERGIES: Patient has no known allergies. PHYSICAL EXAM: Blood pressure 110/68, pulse 92, temperature 36.2 ??C (97.2 ??F), temperature source Temporal, resp. rate 16, height 1.676 m (66 ), weight 91.4 kg (201 lb 9.6 oz), SpO2 98%. Body mass index is 32.54 kg/m??. Plan is deferred because the patient is aged 65 or older and a weight gain/reduction plan would complicate other health conditions APPEARANCE: Alert and in no acute distress EYES: PERRLA, conjunctiva and sclera normal HEART: RRR with normal S1 and S2, no murmurs, no gallops, no JVD appreciated LUNG: clear to auscultation bilaterally EXTREMITIES: Extremities warm and well perfused without clubbing, cyanosis, or edema NEURO (-) resting tremor LABS: Gfr 89 08/2024 Oliver wnl IMPRESSION: 1. Severe dementia with other behavioral disturbance, unspecified dementia type (CMS/HCC) 2. Primary hypertension 3. Neuropathy 4. Tremor 5. Atrial fibrillation, unspecified type (CMS/HCC) 6. 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 She notes her pressure is up she has been in the ER with chest pain dx with anxiety, the is coming to the difficult conclusion that he is going to need placement, she contacted the insurance and given numbers for SNFs she is going to start looking around. Pt follows with neuro but told not much more to do, pt has f/u q 6 months. Pt will continue on aricept and namenda pt is on folic acid. notes a tremor x one year which does not extinguish with movement sounds like essential tremor but gigi's is on the ddx I askedthe to address this with his neurologist Pt with neuropathy notes pt c/o of pain all over she notes pt was more comfortable on gabapentin, will now d/c lyrica and resume gabapentin 300 mg qhs Pt with htn well controlled pt will continue current regimen of metoprolol and aldactone last gfr stable and lytes wnl Pt with afib pt rate controlled on BB pt is on AC with eliquis pt to continue current regimen and f/u with cards as scheduled notes a whistle with patient on occasion otherwise asymptomatic sounds like a wheeze will rx albuterol prn Pt to f/u with me in 6 months Myself and my colleagues have maintained a long-term, longitudinal relationship with this patient, overseeing care of chronic conditions including hypertension. This care relationship has significantly influenced my decision making and treatment plans during today's encounter. No orders of the defined types were placed in this encounter. ADDITIONAL ORDERS: None Jairon Whitlock MD on 12/16/2024 at 11:34 AM EST documented in this encounter Plan of Treatment Upcoming Encounters Date Type Department Care Team (Late st Contact Info) Description 06/01/2025 1:15 PM EDT Office Visit Adult Medicine [address] [phone] Jairon Whitlock MD [address] [place] [phone] 09/02/2025 9:30 AM EDT Ancillary Procedure [facility] [address] [phone] documented as of this encounter Visit Diagnoses Diagnosis Severe dementia with other behavioral disturbance, unspecified dementia type (CMS/HCC)- Primary Primary hypertension Unspecified essential hypertension Neuropathy Mononeuritis of unspecified site Tremor Abnormal involuntary movements Atrial fibrillation, unspecified type (CMS/HCC) Wheeze Wheezing Encounter for adjustment or management of cardiac device documented in this encounter Discontinued Medications Medication Sig Discontinue Reason Start Date End Da te apixaban (Eliquis) 5 mg tablet Take 1 tablet (5 mg total) by mouth 2 (two) times a day. Reorder 11/30/2023 12/16/2024 docusate sodium (COLACE) 100 mg capsule TAKE 1 CAPSULE BY MOUTH DAILY Reorder 10/13/2024 12/16/2024 folic acid (FOLVITE) 1 mg tablet TAKE 1 TABLET BY MOUTH DAILY Reorder 12/11/2024 12/16/2024 cholecalciferol (VITAMIN D-3) 50 mcg (2,000 unit) tablet TAKE 1 TABLET BY MOUTH DAILY Reorder 12/11/2024 12/16/2024 pregabalin (LYRICA) 50 mg capsule Take 1 capsule (50 mg total) by mouth 2 (two) times a day. 11/30/2023 12/16/2024 gabapentin (NEURONTIN) 300 mg capsule Take 1 capsule (300 mg total) by mouth. Reorder 12/16/2024 documented as of this encounter Care Teams Shingle Inspector Relationship Specialty Start Date End Date Jairon Whitlock MD [address] [place] [id number] PCP - General Internal Medicine 11/20/12 documented as of this encounter
--- OUTSIDE RECORDS SUMMARY | 2024-12-31 14:03 | XMS_ITS | Clinical Summary ---
Author Organization [facility] Address [address] [place] [address] Phone Care Team Providers Care Jet Man Name Role Phone Jairon Whitlock MD Primary Care Provider [phone] Allergies No known active allergies Medications Medication Sig Dispensed Refills Start Date End Date Status calcium carbonate-choleca lciferol 500 mg-10 mcg (400 unit) per tablet Take 1 tablet by mouth 1 (one) time each day. 2 Active donepeziL (ARICEPT) 23 mg tablet Take by mouth 1 (one) time each day. Active ferrous sulfate 325 mg (65 mg elemental iron) tablet Take 1 tablet (325 mg total) by mouth 1 (one) time each day. 4 Active hydrocortisone 2.5 % cream Apply to effected area bid 2 Active loperamide (IMODIUM A-D) 2 mg tablet Take 1 tablet (2 mg total) by mouth. 2 Active memantine (NAMENDA) 10 mg tablet Take 1 tablet (10 mg total) by mouth 2 (two) times a day. Active potassium chloride 20 mEq tablet extended release Take 1 tablet by mouth 1 (one) time each day. 3 Active QUEtiapine (SEROquel) 25 mg tablet Take 1 tablet (25 mg total) by mouth 2 (two) times a day. Active sertraline (ZOLOFT) 50 mg tablet Take 1 tablet (50 mg total) by mouth 1 (one) time each day. Active silver sulfADIAZINE (SILVADENE, SSD) 1 % cream Applied to the perianal skin as a thin film twice daily 3 Active triamcinolone (KENALOG) 0.1 % cream Apply topically 2 (two) times a day. Active zinc oxide (Desitin Daily Defense) 13 % cream Apply 1 g topically. 4 Active desonide (DESOWEN) 0.05 % cream APPLY TOPICALLY TO THE AFFECTED AREA TWICE DAILY 60 g 5 4 Active ketorolac (ACULAR) 0.5 % ophthalmic solution 4 Active metoprolol succinate (TOPROL-XL) 50 mg 24 hr tablet TAKE 1 TABLET BY MOUTH DAILY 90 tablet 5 Active spironolactone (ALDACTONE) 50 mg tablet TAKE 1/2 TABLET BY MOUTH DAILY 45 tablet 5 Active potassium chloride (KLOR-CON M20) 20 mEq CR tablet TAKE 1 TABLET BY MOUTH DAILY 90 tablet 5 Active folic acid (FOLVITE) 1 mg tablet Take 1 tablet (1 mg total) by mouth 1 (one) time each day. 90 each 1 5 Active apixaban (Eliquis) 5 mg tablet Take 1 tablet (5 mg total) by mouth 2 (two) times a day. 180 each 1 5 Active docusate sodium (COLACE) 100 mg capsule Take 1 capsule (100 mg total) by mouth 1 (one) time each day. 90 each 1 5 Active cholecalciferol (VITAMIN D-3) 50 mcg (2,000 unit) tablet Take 1 tablet (2,000 Units total) by mouth 1 (one) time each day. 90 tablet 1 5 Active gabapentin (NEURONTIN) 300 mg capsule Take 1 capsule (300 mg total) by mouth at bedtime. 90 capsule 1 5 Active albuterol HFA (ProAir HFA) 90 mcg/actuation inhaler Inhale 2 puffs by mouth every 4 (four) hours if needed for wheezing or shortness of breath. 8.5 g 5 12/16/19 26 Active nitroglycerin (NITROSTAT) 0.4 mg SL tablet TAKE 1 TABLET BY MOUTH NEEDED FOR CHEST PAIN. IF CHEST PAIN PERSISTS DESPITE 1 TABLET CALLED 911 25 tablet 2 5 Active apixaban (Eliquis) 5 mg tablet Take 1 tablet (5 mg total) by mouth 2 (two) times a day. 4 12/16/19 25 Discontinued(Reo rder) cholecalciferol (VITAMIN D-3) 50 mcg (2,000 unit) tablet Take 1 tablet (2,000 Units total) by mouth 1 (one) time each day. 4 12/11/19 25 Discontinued folic acid (FOLVITE) 1 mg tablet Take 1 tablet (1,000 mcg total) by mouth 1 (one) time each day. 3 12/11/19 25 Discontinued gabapentin (NEURONTIN) 300 mg capsule Take 1 capsule (300 mg total) by mouth. 12/16/19 25 Discontinued(Reo rder) metoprolol succinate (TOPROL-XL) 50 mg 24 hr tablet Take 1 tablet (50 mg total) by mouth 1 (one) time each day. 4 12/11/19 25 Discontinued nitroglycerin (NITROSTAT) 0.4 mg SL tablet Take 1 tablet as needed for Chest Pain. If chest pain persists despite 1 tablet called 911. 2 12/26/19 25 Discontinued pregabalin (LYRICA) 50 mg capsule Take 1 capsule (50 mg total) by mouth 2 (two) times a day. 4 12/16/19 25 Discontinued spironolactone (ALDACTONE) 50 mg tablet Take 0.5 tablets (25 mg total) by mouth. 4 12/11/19 25 Discontinued docusate sodium (COLACE) 100 mg capsule TAKE 1 CAPSULE BY MOUTH DAILY 90 capsule 1 4 12/16/19 25 Discontinued(Reo rder) folic acid (FOLVITE) 1 mg tablet TAKE 1 TABLET BY MOUTH DAILY 90 tablet 5 12/16/19 25 Discontinued(Reo rder) cholecalciferol (VITAMIN D-3) 50 mcg (2,000 unit) tablet TAKE 1 TABLET BY MOUTH DAILY 90 tablet 5 12/16/19 25 Discontinued(Reo rder) Active Problems Problem Noted Date Diagnosed Date Snoring 04/30/2023 Overview (02/03/2024): Last Assessment & Plan: He does snore and I think he could have sleep apnea.He does fall asleep a lot. I believe this could be responsible for this however he is also on a lot of medications that could cause this. I asked the patient's to speak to the primary doctor about this. I am going to order a sleep test. I did explain if he does have sleep apnea he would need to wear a mask. I explained this to the and she understands and is agreeable. Sick sinus syndrome 10/24/2021 Overview (02/03/2024): Last Assessment & Plan: Does have a pacemaker in place. He was last interrogated in March and does appear to be functioning normally. He does have a prior several years until any new battery. Chest pain 10/24/2021 Overview (02/03/2024): Last Assessment & Plan: Patient will get an occasional episode of chest pain as I noted it may once or twice a month. She does give a nitroglycerin and this seems to resolve it. This occurs when she is upset with them but never with activity. He did have a negative nuclear stress test 2 years ago. Reviewed this with her and after some discussion we will hold off with a repeat repeat stress test. I did tell her if the chest pain did not resolve and she should call 911. Cirrhosis of liver without ascites 11/12/2020 Hypertension 02/11/2015 Overview (02/03/2024): Last Assessment & Plan: 122/64 in office today, well-controlled. Continue spironolactone and metoprolol. CHF (congestive heart failure) 02/11/2015 Atrial fibrillation 02/11/2015 Overview (02/03/2024): Last Assessment & Plan: He remains in atrial fibrillation. The rate is controlled. The atrial fibrillation appears to be persistent now. He had been on Xarelto however this was changed to Eliquis. Neuropathy 02/11/2015 Hep C w/o coma, chronic 02/11/2015 Dementia 02/11/2015 Overview (02/03/2024): Follows with Neurology (dmitriy) Encounters Date Type Department Care Team Description 12/16/2024 11:30 AM EST Office Visit Adult Medicine [address] [phone] Jairon Whitlock MD Severe dementia with other behavioral disturbance, unspecified dementia type (CMS/HCC) (Primary Dx); Primary hypertension; Neuropathy; Tremor; Atrial fibrillation, unspecified type (CMS/HCC); Wheeze 10/22/2024 4:30 PM EST Ancillary Procedure [facility] [address] [facility] [address] [place] [address] from Last 3 Months Immunizations Name Administration Dates Next Due Influenza trivalent, 0.5mL ( Fluzone High-dose) 65yo and older 08/13/2018,08/08/2016,08/09/2015 Influenza trivalent, with pr eservative (Fluzone; Afluria) 6mo and older 08/07/2017 Zoster recombinant (Shingrix ) 19yo and older 05/17/2018,03/05/2018 Medical History Medical History Date Comments Atrial fibrillation (CMS/HCC) 02/11/2015 DX :Atrial fibrillation (HCC) Hep C w/ coma, chronic 02/11/2015 DX:Hep C w/ coma, chronic Hypertension 02/11/2015 DX:Hypertension Hep C w/o coma, chronic (CMS/HCC) 02/11/2015 DX:Hep C w/o coma, chronic (HCC) Neuropathy 02/11/2015 DX:Neuropathy Dementia (CMS/HCC) 02/11/2015 DX:Dementia ( HCC) Social History Tobacco Use Types Packs/Day Years [...] file Not on file Not on file Obstetrics History Last Filed Vital Signs Vital Sign Reading [...] Mass Index 32.54 12/16/2024 11:12 AM EST Plan of Treatment Upcoming Encounters Date Type Department Care Team (Late st Contact Info) Description 06/01/2025 1:15 PM EDT Office Visit Adult Medicine [address] [phone] Jairon Whitlock MD [address] [place] [id number] 09/02/2025 9:30 AM EDT Ancillary Procedure [facility] [address] [facility] [address] [place] [address] Health Maintenance Due Date Last Done Comments Pneumococcal Vaccine: 65+ Years (1 of 2 - PCV) 02/29/1951 DTaP,Tdap,and Td Vaccines (1 - Tdap) 1965 Hepatitis B Vaccines (1 of 3 - Risk 3-dose series) 2006 RSV Immunization Patients 60+ Years Old (1 - 1-dose 75+ series) 2021 Depression Screening 11/04/2022 Falls Risk Assessment 11/04/2022 Hepatitis C Screening 11/04/2022 Medicare Annual Wellness Visit 11/04/2022 Social Influencers of Health Screening 11/04/2022 COVID-19 Vaccine ( season) 2024 04/11/2022 Hypertension/CHF/CAD Annual BMP Blood Test 09/15/2025 09/15/2024, 06/10/2024 Cholesterol Screening (Lipid Panel) 01/12/2028 01/12/2023 Zoster Vaccines Completed 05/16/2024, 04/27, 03/05/2018, Additional history exists Influenza Vaccine Completed 08/20/2024, , 08/27/2022, Additional history exists HIB Vaccines Aged Out No longer eligi ble based on patient's age to complete this topic HPV Vaccines Aged Out No longer eligi ble based on patient's age to complete this topic Hepatitis A Vaccines Aged Out No long er eligible based on patient's age to complete this topic IPV Vaccines Aged Out No longer eligi ble based on patient's age to complete this topic MMR Vaccines Aged Out No longer eligi ble based on patient's age to complete this topic Meningococcal ACWY Vaccine Aged Out N o longer eligible based on patient's age to complete this topic RSV Immunization Patients Under 20 months Aged Out No longer eligible based on patient's age to complete this topic Varicella Vaccines Aged Out No longer eligible based on patient's age to complete this topic Medical Devices Implanted Type Area Branch Customer Service Representative Device Identifier Shelf Expiration Date Model / Serial / Lot Savannah Araujojordan Reyna Dr-Mike [id number] Implanted:12/2015 (Quantity not on file) Cardiac Pacemaker [employer] DARRELL Reyna DR-Mike / [id number] / Procedures Procedure Name Priority Date/Time Associated Diagnosis Comments CARDIAC DEVICE CHECK- REMOTE- MURJ Routine 10/22/2024 4:25 PM EST from Last 3 Months Results * Cardiac device check - Remote- MURJ (10/22/2024 4:25 PM EST) Date Time Interrogation Session [id number] CV DEVICE CHECK Type Interrogation Session RemoteScheduled CV DEVICE CHECK Implantable Pulse Generator Branch Customer Service Representative BIO CV DEVICE CHECK Implantable Pulse Generator Type IPG CV DEVICE CHECK Implantable Pulse Generator Model Darrell 8 -Mike CV DEVICE CHECK Implantable Pulse Generator Serial Number [id number] CV DEVICE CHECK Implantable Pulse Generator Implant Date [id number] CV DEVICE CHECK Battery Remaining Percentage 40.00 CV DEVICE CHECK Battery Status Middle of Service CV DEVICE CHECK Jc Statistic RA Percent Paced 2.00 CV DEVICE CHECK Jc Statistic RV Percent Paced 60.00 CV DEVICE CHECK Atrial Tachy Statistic AT/AF [place] Percent 100.00 CV DEVICE CHECK Lead Channel Sensing Intrinsic Amplitude 2.400 CV DEVICE CHECK Lead Channel Impedance Value 507 CV DEVICE CHECK Lead Channel RA Pacing Threshold Date 2024-10-20 CV DEVICE CHECK Lead Channel Setting Pacing Amplitude 4.000 CV DEVICE CHECK Lead Channel Setting Pacing Pulse Width 0.4 CV DEVICE CHECK Lead Channel Sensing Intrinsic Amplitude 7.000 CV DEVICE CHECK Lead Channel Impedance Value 546 CV DEVICE CHECK Lead Channel RV Pacing Threshold Date 2024-10-20 CV DEVICE CHECK Lead Channel Setting Pacing Amplitude 2.400 CV DEVICE CHECK Lead Channel Setting Pacing Pulse Width 0.4 CV DEVICE CHECK Jc Setting Mode (NBG Code) DDD CV DEVICE CHECK Jc Setting Lower Rate Limit 60 CV DEVICE CHECK Jc Setting AT Mode Switch Rate 160 CV DEVICE CHECK Jc Setting Maximum Tracking Rate 130 CV DEVICE CHECK Jc Setting Maximum Sensor Rate 120 CV DEVICE CHECK Jc Setting PAV Delay 190 CV DEVICE CHECK Jc Setting TON Delay 160 CV DEVICE CHECK Date of Service 2024-11-09 CV DEVICE CHECK Anatomical Region Laterality Modality Device Interroga tion 10/20/2024 12:1 9 AM EST Impressions 10/22/2024 10:10 AM EST Normal Remote: No Events * Normal Device Function * Alerts or events: None * Battery: Battery is at 40%, * Sensing, impedance and thresholds reviewed * Programmed parameters reviewed * Presenting rhythm reviewed * Heart Rate Histograms reviewed * No significant changes noted Narrative Procedure Note Lui Oneil MD - 10/22/2024 IMPRESSION: Normal Remote: No Events * Normal Device Function * Alerts or events: None * Battery: Battery is at 40%, * Sensing, impedance and thresholds reviewed * Programmed parameters reviewed * Presenting rhythm reviewed * Heart Rate Histograms reviewed * No significant changes noted Lui Oneil MD CV IMPLANTABLE CARDI AC DEVICE PROCEDURES from Last 3 Months Advance Directives Documents on File Type Date Recorded 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 Health Care Decision (hx) 02/02/2014 AD JOSHI DIRECTIVE Health Care Decision (hx) 02/02/2014 AD JOSHI DIRECTIVE Health Care Decision (hx) 02/02/2014 AD JOSHI DIRECTIVE Health Care Decision (hx) 02/02/2014 AD JOSHI DIRECTIVE Health Care Decision (hx) 02/02/2014 AD JOSHI DIRECTIVE Health Care Decision (hx) 02/02/2014 AD JOSHI DIRECTIVE Health Care Decision (hx) 02/02/2014 AD JOSHI DIRECTIVE Health Care Decision (hx) 02/02/2014 AD JOSHI DIRECTIVE Health Care Decision (hx) 02/02/2014 AD JOSHI DIRECTIVE Health Care Decision (hx) 02/02/2014 AD JOSHI DIRECTIVE Health Care Decision (hx) 02/02/2014 AD JOSHI DIRECTIVE Health Care Decision (hx) 02/02/2014 AD JOSHI DIRECTIVE Health Care Decision (hx) 02/02/2014 AD JOSHI DIRECTIVE Health Care Decision (hx) 02/02/2014 AD JOSHI DIRECTIVE Health Care Decision (hx) 02/02/2014 AD JOSHI DIRECTIVE Health Care Decision (hx) 02/02/2014 AD JOSHI DIRECTIVE Health Care Decision (hx) 02/02/2014 AD JOSHI DIRECTIVE Care Teams Jet Man Relationship Specialty Start Date End Date Jairon Whitlock MD [address] [place] [id number] PCP - General Internal Medicine 11/20/12
--- NOTE | 2024-12-31 14:24 | ED_ITS ---
HPI - General Adult General Chief complaint: General Medical Stated complaint: UNABLE TO CARE FOR PT,WANTS FOR LTC PLACEMENT Time Seen by Provider: 12/31/24 14:24 Source: EMS Limitations: other (Advanced dementia) History of Present Illness ED Provider: Leah Aguirre PA-C HPI narrative: 79-year-old male with a history of Alzheimer's dementia, TIA, left-sided weakness, presents given need for a higher level of care. The is the patient's primary caregiver, she has sending him to the emergency department due to her inability to continue caring for him. Related Data Home Medications ?Medication ?Instructions ?Recorded ?Confirmed calcium 500 mg (as 1 tab PO DAILY 12/08/22 12/08/22 carbonate)-vitamin D3 10 mcg (400 unit) tablet (Calcium 500 With D) desonide 0.05 % topical cream 1 appl topical BID 12/08/22 12/08/22 donepezil 23 mg tablet 1 tab PO DAILY 12/08/22 12/08/22 ferrous sulfate 325 mg (65 mg 1 tab PO DAILY 12/08/22 12/08/22 iron) tablet (FeroSul) gabapentin 600 mg tablet 1 tab PO BID 12/08/22 12/08/22 memantine 10 mg tablet 1 tab PO BID 12/08/22 12/08/22 metoprolol succinate 50 mg 1 tab PO DAILY 12/08/22 12/08/22 tablet,extended release 24 hr potassium chloride 20 mEq 1 tab PO DAILY 12/08/22 12/08/22 tablet,extended release(part/cryst) quetiapine 25 mg tablet 1 tab PO BID 12/08/22 12/08/22 sertraline 50 mg tablet 1 tab PO DAILY 12/08/22 12/08/22 spironolactone 50 mg tablet 0.5 tab PO DAILY 12/08/22 12/08/22 Previous Rx's ?Medication ?Instructions ?Recorded apixaban 5 mg tablet (Eliquis) 5 mg PO BID 30 days #60 tabs 12/09/22 Allergies Allergy/AdvReac Type Severity Reaction Status Date / Time No Known Allergies Allergy Verified 12/31/24 12:07 [No Known Allergies*] Review of Systems 2 Review of Systems: Unable to obtain secondary to dementia Yes all other systems are reviewed and are negative PMFSH Past Medical History Attestation statement: The following information was validated with the patient. Medical History Alzheimer's dementia Atrial fibrillation Chronic anticoagulation Cirrhosis CVA (cerebral vascular accident) Hepatic encephalopathy Hypertension Pacemaker Social History Social History Household Members: Spouse Housing: Apartment Do you presently have visiting nurse or other home services: No Patient Tobacco Use Status: Former Tobacco user Advance Directives: No Advance Directives Date on File: 12/09/22 Do you have a plan to hurt others: No Plan service: No Current occupational status: retired Physical Exam ED Vital Signs: Vital Signs - 24 hr 12/31/24 11:40 12/31/24 12:00 Temperature 97.8 F 98.1 F Pulse Rate 68 92 Respiratory Rate 18 18 Blood Pressure 101/71 110/77 Pulse Oximetry 99 98 Oxygen Delivery Method Room Air Room Air BMI result Body Mass Index 26.6 Const Other: Sleeping, easily woken with verbal stimuli Orientation/consciousness: oriented to person Resp Effort & Inspection: normal respiratory effort Cardio Other: Normal peripheral perfusion Skin Other: Warm dry no rash Neuro Other: Patient confused, he knows he is in the hospital he just does not know where, he does not know the date General: oriented to person, gait normal, no focal motor deficits and CN's II-XI intact bilaterally Extrem Other: Ambulates with slow steady gait, I am not detecting left-sided weakness Psych Other: Flat affect Course Course Course Narrative: Case management is aware of the patient's current situation. Apparently he has services to the home, including a social media sr strategy manager through elder Services. They are actively trying to get the patient placed in a memory care unit. Given the is unable to manage his care, they advised her to have him sent to the emergency department for temporary placement while they are working on long-term care placement. Medical Decision Making Medical Decision Making MDM Narrative: 79-year-old male with a history of Alzheimer's dementia, TIA, left-sided weakness, presents given need for a higher level of care. The is the patient's primary caregiver, she has sending him to the emergency department due to her inability to continue caring for him. Problem: Dementia History: Per EMS I have considered the following differential diagnoses: Failure to thrive, electrolyte abnormality, dehydration, anemia, viral syndrome, end-stage dementia Plan: Patient will be held for PT and case management, we will obtain screening labs and a viral panel as medical clearance. To our knowledge the patient has not been acutely ill, he is hemodynamically stable and afebrile, without any active objective symptoms, and no report of any physical concerns or complaints. I have independently reviewed the following tests: Labs: No leukocytosis, not anemic, no electrolyte abnormality, viral panel negative Lab Data 12/31/24 15:06 12/31/24 15:06 Labs: Lab Results 12/31/24 Range/Units 15:06 WBC 6.5 (4.8-10.8) X10*3/uL RBC 4.30 L (4.60-5.80) X10*6/uL Hgb 13.6 L (14.0-18.0) g/dl Hct 40.8 L (42.0-52.0) % MCV 94.9 (80.0-98.0) fL MCH 31.6 (27.0-33.0) pg MCHC 33.3 (31.0-36.0) g/dl RDW 13.7 (11.0-16.0) % Plt Count 211 D (160-400) X10*3/uL MPV 9.5 (9.4-12.4) fL Immature Gran % (Auto) 0.5 H (0.0-0.4) % Neut % (Auto) 64.8 (45-73) % Lymph % (Auto) 25.1 (20-40) % [place] % (Auto) 7.1 (2-11) % Eos % (Auto) 2.2 (0-4) % Baso % (Auto) 0.3 (0-2) % Lymph # (Auto) 1.6 (1.2-4.9) X10*3/uL [place] # (Auto) 0.5 (0.1-1.2) X10*3/uL Eos # (Auto) 0.1 (0.0-0.4) X10*3/uL Baso # (Auto) 0.0 (0.0-0.2) X10*3/uL Abs Immat Gran (auto) 0.03 (0.00-0.03) X10*3/uL Absolute Neuts (auto) 4.2 (2.0-8.3) x10*3/uL Absolute Nucleated RBC 0.000 (0.0-0.012) X10*3/uL Nucleated RBC % (auto) 0.0 (0.0-0.2) /100WBC Sodium 139 (135-145) mmol/L Potassium 5.0 (3.3-5.1) mmol/L Chloride 106 (96-108) mmol/L Carbon Dioxide 26 (22-29) mmol/L Anion Gap 12 (12-20) BUN 18 H (9-16) mg/dL Creatinine 0.88 (0.5-1.4) mg/dL Estim Creat Clear Calc 66.9 Estimated GFR > 60 Random Glucose 108 (60-115) mg/dL Calcium 9.2 D (8.4-10.2) mg/dL Influenza Type A (PCR) NEGATIVE (Negative) Influenza Type B (PCR) NEGATIVE (Negative) RSV RNA Qual (PCR) NEGATIVE (Negative) SARS-CoV-2 RNA (RT-PCR) NEGATIVE (Negative) Discharge Plan Discharge Clinical Impression: Severe dementia Patient Disposition: Still a Patient Prescriptions: No Action quetiapine 25 mg tablet 1 tab PO BID desonide 0.05 % cream 1 appl topical BID gabapentin 600 mg tablet 1 tab PO BID metoprolol succinate 50 mg tablet extended release 24 hr 1 tab PO DAILY potassium chloride 20 mEq tablet,ER particles/crystals 1 tab PO DAILY ferrous sulfate [FeroSul] 325 mg (65 mg iron) tablet 1 tab PO DAILY sertraline 50 mg tablet 1 tab PO DAILY spironolactone 50 mg tablet 0.5 tab PO DAILY memantine 10 mg tablet 1 tab PO BID calcium carbonate-vitamin D3 [Calcium 500 With D] 500 mg-10 mcg (400 unit) tablet 1 tab PO DAILY donepezil 23 mg tablet 1 tab PO DAILY Eliquis 5 mg Tablet 5 mg PO BID 30 Days Qty: 60 0RF Print Language: Chadian
[2024-12-31 15:11] LABS: MANUAL DIFF FLAG NO
[2024-12-31 15:15] LABS: Basophils Percent Auto 0.3 % (0-2); Eosinophils Absolute Auto 0.1 X10*3/uL (0.0-0.4); Eosinophils Percent Auto 2.2 % (0-4); Hematocrit 40.8 % (42.0-52.0); Hemoglobin 13.6 g/dl (14.0-18.0); Imm Gran Abs Auto 0.03 X10*3/uL (0.00-0.03); Imm Gran Pct Auto 0.5 % (0.0-0.4); Lymphocytes Absolute Auto 1.6 X10*3/uL (1.2-4.9); Lymphocytes Percent Auto 25.1 % (20-40); Mean Corpuscular HGB Conc 33.3 g/dl (31.0-36.0); Mean Corpuscular Hemoglobin 31.6 pg (27.0-33.0); Mean Corpuscular Volume 94.9 fL (80.0-98.0); Mean Platelet Volume 9.5 fL (9.4-12.4); Monocytes Absolute Auto 0.5 X10*3/uL (0.1-1.2); Monocytes Percent Auto 7.1 % (2-11); Neutrophils Absolute Auto 4.2 x10*3/uL (2.0-8.3); Neutrophils Percent Auto 64.8 % (45-73); Platelet Count 211 X10*3/uL (160-400); Red Cell Distribution Width 13.7 % (11.0-16.0); White Blood Count 6.5 X10*3/uL (4.8-10.8)
[2024-12-31 15:32] LABS: Anion Gap 12 (12-20); Blood Urea Nitrogen 18 mg/dL (9-16); Calcium 9.2 mg/dL (8.4-10.2); Carbon Dioxide 26 mmol/L (22-29); Chloride 106 mmol/L (96-108); Creatinine Clr Calc Pharmacy 66.9; Estimated Glomerular Filt Rate > 60; Glucose Random 108 mg/dL (60-115); Sodium 139 mmol/L (135-145)
[2024-12-31 15:56] LABS: Influenza A PCR NEGATIVE (Negative); Influenza B PCR NEGATIVE (Negative); Resp Syncy Virus RNA Qual PCR NEGATIVE (Negative); SARS COV2 PCR INHOUSE NEGATIVE (Negative)
[2024-12-31 17:25] VITALS: BP 124/74; PULSE 92; RESP 18; TEMP 36; O2SAT 99
--- NOTE | 2024-12-31 21:16 | MHC.CM.ED ---
CM met with patient at the request of Josey CHARLES. Pt is alert to self. Hx Alzheimer's dementia. Chinese speaking.Medical record reviewed. can no longer care for her . Increasing confusion, wandering, has not slept in 3 days. CM called and spoke with /HCP/POA Teresa Cruz ([phone]) with technical proposal writer. Per Teresa-patient lives with her, Uses a walker. Has [employer] SWITCHBOARD OPERATOR services 3.5 hours/3 days a week and [employer] operator form 5-8 pm/3 days a week. HCP is on file. PCP is Jono Whitlock at [facility] in [place]. Teresa is requesting LTC for her . Teresa understands that a PT evaluation is ordered for the morning and STR could be an option with transition to LTC. Explained that Lacie must approve. There are concerns that patient may wander, so he will need a locked memory unit. Teresa is aware that local referrals will be made first. She has no requests for facilities. Referrals will be made. CM will follow for placement
[2024-12-31] MEDS: Memantine HCl 10 MG TABLET PO (21:45)
[2024-12-31] MEDS: Apixaban 5 MG TABLET PO (21:45)
[2024-12-31] MEDS: Gabapentin 600 MG TABLET PO (21:45)
[2024-12-31] MEDS: QUEtiapine Fumarate 25 MG TABLET PO (21:45)
[2024-12-31 21:50] VITALS: BP 144/86; PULSE 76; RESP 16; TEMP 36.2; O2SAT 99
--- NOTE | 2024-12-31 21:56 | PC.NURSE ---
pt has elopment band placed on him due to high risk for elopment due to dementia and Alzheimer. curtain open and pt is visable to staff.
[2025-01-01 00:25] VITALS: BP 108/69; PULSE 71; RESP 16; TEMP 36.4; O2SAT 99
--- NOTE | 2025-01-01 00:42 | PC.NURSE ---
report given to overflow. pt has a band on and is a high flight risk due to memory issues. pt has not attempted yet to leave. pt ambulated to bathroom with assist.
--- NOTE | 2025-01-01 00:58 | PC.NURSE ---
report given to Caz via phone, [facility]
--- NOTE | 2025-01-01 05:14 | PC.NURSE ---
uneventful night. +dementia, pleasant with staff. no attempts out of bed. waiting for penitentiary/dementia unit placement.
[2025-01-01 06:18] VITALS: BP 101/72; PULSE 68; RESP 12; TEMP 36.9; O2SAT 96
--- NOTE | 2025-01-01 07:30 | MHC.EDTECH ---
I helped the patient to the bath room with the walker he did very well but he is very confused.
[2025-01-01] MEDS: Metoprolol Succinate ER 50 MG TAB.ER.24H PO (08:03)
[2025-01-01] MEDS: Ferrous Sulfate 324 MG TABLET.DR PO (08:03)
[2025-01-01] MEDS: Sertraline HCL 50 MG TABLET PO (08:03)
[2025-01-01] MEDS: Apixaban 5 MG TABLET PO ×2 (08:03→19:49)
[2025-01-01] MEDS: Gabapentin 600 MG TABLET PO ×2 (08:03→19:48)
[2025-01-01] MEDS: QUEtiapine Fumarate 25 MG TABLET PO ×2 (08:03→19:48)
[2025-01-01] MEDS: Memantine HCl 10 MG TABLET PO ×2 (08:03→19:48)
--- NOTE | 2025-01-01 08:07 | PC.NURSE ---
Awaiting missing 09:00 Calcium + Vitamin D, Potassium and Spironolactone per pharmacy at this time.
[2025-01-01 08:23] VITALS: BP 101/72; PULSE 68; O2SAT 96
[2025-01-01] MEDS: Potassium Chloride ER 20 MEQ TAB.ER.PRT PO (08:27)
[2025-01-01] MEDS: Calcium + Vitamin D 250 MG TABLET 500 MG PO (08:27)
[2025-01-01] MEDS: Spironolactone 25 MG TABLET PO (08:27)
--- NOTE | 2025-01-01 08:44 | MHC.EDTECH ---
Hourly rounds completed, patient ate his breakfast, he is resting quietly in his bed within call ann in his reach.
--- NOTE | 2025-01-01 09:49 | MHC.CM.ED ---
Addendum entered by Virginia Benson 01/01/25 10:21: [facility] is only facility able to offer a bed. Spoke with patient's , Teresa, via telephone at [phone] with the help of interpreter translator. Teresa accepts bed. Facility is aware and is in the process of obtaining insurance auth. Original Note: Patient remains in ER overflow. Has elopement band on. Per nursing notes, patient has not tried to elope. Physical therapy eval completed. LTC is recommended. No bed offers at this time. Referral broadcasted within 50 miles of patient's home. Continue to monitor for d/c needs.
[2025-01-01 14:24] VITALS: BP 102/67; PULSE 70; RESP 18; TEMP 36.4; O2SAT 99
--- NOTE | 2025-01-01 17:57 | PC.NURSE ---
Patient's at bedside visiting, patient has no complaints, resting in bed, confused, disoriented. Wound not interact with hospital staff after left. Refused dinner tray, mostly asleep, easily arousable.
--- NOTE | 2025-01-01 21:53 | PHA.MEDREC ---
Pharmacy Consult ? Medication Reconciliation Pharmacy has reviewed the medication reconciliation done by nursing. Also called and spoke with Teresa via phone to confirm med list. She was able to confirm medications by looking at his rx bottles at home. For gabapentin, nurse had in med rec that patient takes 600 mg bid but when I spoke to , she said patient takes 300 mg at bedtime (which matches with pharmacy claims). She also confirmed that patient is taking eliquis 5 mg and that he's no longer taking pregabalin 50 mg.
[2025-01-01 22:00] VITALS: BP 130/68; PULSE 62; RESP 12; TEMP 36.4; O2SAT 98
--- NOTE | 2025-01-01 23:18 | PC.NURSE ---
Pt resting in bed eyes closed, skin pwd respirations even unlabored. Continues to await insurance auth for placement, will continue to monitor.
--- NOTE | 2025-01-02 04:21 | PC.NURSE ---
Pt awakening intermittently requiring gentle reminders on time, place, and situation. Calm and cooperative with care, easily redirected. Ambulatory to bathroom with walker and 1 assist, returned to bed without incident. Additional PO fluids placed at bedside for pt.
[2025-01-02 04:49] VITALS: BP 106/76; PULSE 73; RESP 18; TEMP 36.6; O2SAT 98
[2025-01-02 09:43] VITALS: BP 114/87; PULSE 76; RESP 20; TEMP 36.6; O2SAT 99
[2025-01-02] MEDS: Memantine HCl 10 MG TABLET PO ×2 (09:45→19:43)
[2025-01-02] MEDS: Metoprolol Succinate ER 50 MG TAB.ER.24H PO (09:45)
[2025-01-02] MEDS: QUEtiapine Fumarate 25 MG TABLET PO ×2 (09:45→19:43)
[2025-01-02] MEDS: Apixaban 5 MG TABLET PO ×2 (09:45→19:43)
[2025-01-02] MEDS: Sertraline HCL 50 MG TABLET PO (09:45)
[2025-01-02] MEDS: Ferrous Sulfate 324 MG TABLET.DR PO (09:45)
--- NOTE | 2025-01-02 09:45 | PC.NURSE ---
assumed care of patient at 0700, patient has been sleeping through out morning, arousable to verbal stimuli. patient takes meds whole with water. patient refused breakfast tray this morning, stated he was not hungry. VSS, respirations equal and unlabored
[2025-01-02] MEDS: Potassium Chloride ER 20 MEQ TAB.ER.PRT PO (10:53)
[2025-01-02] MEDS: Calcium + Vitamin D 250 MG TABLET 500 MG PO (10:53)
[2025-01-02] MEDS: Spironolactone 25 MG TABLET PO (10:53)
--- NOTE | 2025-01-02 13:13 | PC.NURSE ---
patient woke up, requested to go to bathroom. patient ambulated with standby assist and walker to bathroom. new linens and pads placed on bed, patient assisted to recliner to eat his lunch. patient skin noted to be dry and intact. patient sitting up in recliner with chair alarm on eating lunch. patient is now awake and alert. resp even and unlabored.
--- NOTE | 2025-01-02 13:29 | MHC.CM.ED ---
Addendum entered by Virginia Benson 01/02/25 15:09: Spoke with , Teresa, via telephone with the help of the operations forester. Teresa aware we're still waiting. Teresa voicing concerns about food, medication and shower. T/W explained patient had a bed bath today, was out of bed to a chair and eating lunch. Original Note: Patient remains in ER overflow. Lj is in the process of obtaining insurance auth. Continue to monitor for d/c needs.
[2025-01-02 13:58] VITALS: BP 128/60; PULSE 67; RESP 18; TEMP 36.2; O2SAT 97
--- NOTE | 2025-01-02 17:41 | PC.NURSE ---
patient sat up and ate dinner, patient currently sitting in recliner watching tv. patient has chair alarm on for safety, camera sitter for safety. patient ambulated with tech to bathroom with walker, gait steady. patient needed redirection at one point of where he was and where his was. patient offered redirection, patient appears calm, pleasantly confused
[2025-01-02] MEDS: Gabapentin 300 MG CAPSULE PO (19:43)
[2025-01-03 00:24] VITALS: BP 135/79; PULSE 65; RESP 18; TEMP 36.4; O2SAT 98
[2025-01-03 00:32] VITALS: BP 135/79; PULSE 65; RESP 18; TEMP 36.4; O2SAT 98
--- NOTE | 2025-01-03 00:51 | PC.NURSE ---
Patient resting comfortably, some redirection needed intermittently. Patient walked to bathroom with assist with walker. VSS, bed alarm on for safety.
[2025-01-03 08:39] VITALS: BP 103/65; PULSE 74; RESP 16; TEMP 36; O2SAT 99
--- NOTE | 2025-01-03 09:21 | MHC.CM.PN ---
Addendum entered by Anna Finch RN 01/03/25 12:59: CM RECEIVED MESSAGES FROM PT'S MILLY, CM CONTACTED MILLY AT NUMBER ON FILE VIA FILLING HAULER WEAVING, MILLY REPORTING SHE DID NOT RESLIZE HOW FAR [place] WAS AND SHE HAS TO DRIVE ALONE, AFTER REVIEW OF REFERRAL TAM PEREZ REPORTS PT CAN BE REVIEWED BY [facility], MILLY AGREEABLE IT IS ONLY 25-30 MIN AWAY HOWEVER ALSO REPORTS IF THEY CANNOT TAKE PT SHE WILL AGREE TO [facility] IN [place]. Original Note: PT DISCHARGING [facility] IN [place], CHRISTY ATTEMPTED TO CONTACT PT'S MILLY [phone] VIA FILLING HAULER WEAVING, NO ANSWER AND DETAILED MESSAGE LEFT W/CM CALL BACK NUMBER IN CASE OF ANY QUESTIONSALYSSA FOR BLS TRANSPORT AT 2:30PM PER FACILITY REQUEST.
[2025-01-03] MEDS: Ferrous Sulfate 324 MG TABLET.DR PO (10:01)
[2025-01-03] MEDS: Potassium Chloride ER 20 MEQ TAB.ER.PRT PO (10:01)
[2025-01-03] MEDS: Sertraline HCL 50 MG TABLET PO (10:01)
[2025-01-03] MEDS: Calcium + Vitamin D 250 MG TABLET 500 MG PO (10:02)
[2025-01-03] MEDS: Spironolactone 25 MG TABLET PO (10:02)
[2025-01-03] MEDS: Metoprolol Succinate ER 50 MG TAB.ER.24H PO (10:02)
[2025-01-03] MEDS: Apixaban 5 MG TABLET PO ×2 (10:02→21:05)
[2025-01-03] MEDS: QUEtiapine Fumarate 25 MG TABLET PO ×2 (10:02→21:05)
[2025-01-03] MEDS: Memantine HCl 10 MG TABLET PO ×2 (10:02→21:05)
--- NOTE | 2025-01-03 10:44 | PC.NURSE ---
Addendum entered by Arun Ahmadi RN 01/04/25 12:57: pt confused this AM, difficult to communicate with w/ feller operator at bedside. pt had breakfast, took meds then showered w/ staff at pt's side for safety. CM informed of wifes request for daughters to be the point of contact and for pt to be d/c'ed home with services Addendum entered by Arun Ahmadi RN 01/03/25 15:59: pt d/c cancelled d/t facility being to far from family Original Note: report given to facility w/ ETA
--- NOTE | 2025-01-03 13:05 | MHC.EDTECH ---
pt ate 25% of his lunch
[2025-01-03 14:00] VITALS: BP 102/62; PULSE 91; RESP 20; TEMP 36.2; O2SAT 98
--- NOTE | 2025-01-03 19:10 | PC.NURSE ---
Assumed care of patient at this time, pt resting no apparent distress noted bed locked in lowest position alarm and camera on
--- NOTE | 2025-01-03 19:42 | PC.NURSE ---
eached out to ED provider for updated code status. no new orders at this time
--- NOTE | 2025-01-03 20:03 | PC.NURSE ---
Teresa called, updated on plan of care to look for LTC closer to her, at this time all questions answered.
[2025-01-03 20:33] VITALS: BP 128/70; PULSE 79; RESP 18; TEMP 36.7; O2SAT 100
[2025-01-03] MEDS: Gabapentin 300 MG CAPSULE PO (21:05)
--- NOTE | 2025-01-03 21:09 | PC.NURSE ---
Patient Teresa calling stating she with her daughters would like patient to come home instead of going to LTC, Teresa would like daughters to be allowed to get information. Patients would like help help getting in home services
--- NOTE | 2025-01-04 00:01 | MHC.EDTECH ---
This tech took over care of patient at 2330,patient ambulated to the bathroom with walker with a steady gait,pt urinated,patient is back in bed, gave pt a cup of apple juice per request,bed alarm on and camera in place for safety
[2025-01-04 04:56] VITALS: BP 125/82; PULSE 71; RESP 16; TEMP 36.4; O2SAT 98
[2025-01-04 08:55] VITALS: BP 139/82; PULSE 75; RESP 20; TEMP 36.1; O2SAT 97
[2025-01-04] MEDS: Ferrous Sulfate 324 MG TABLET.DR PO (09:29)
[2025-01-04] MEDS: Folic Acid 1 MG TABLET PO (09:29)
[2025-01-04] MEDS: Metoprolol Succinate ER 50 MG TAB.ER.24H PO (09:29)
[2025-01-04] MEDS: Potassium Chloride ER 20 MEQ TAB.ER.PRT PO (09:29)
[2025-01-04] MEDS: Calcium + Vitamin D 250 MG TABLET 500 MG PO (09:29)
[2025-01-04] MEDS: Spironolactone 25 MG TABLET PO (09:29)
[2025-01-04] MEDS: Cholecalciferol (Vitamin D3) 25 MCG TABLET 50 MCG PO (09:29)
[2025-01-04] MEDS: Docusate Sodium 100 MG CAPSULE PO (09:29)
[2025-01-04] MEDS: QUEtiapine Fumarate 25 MG TABLET PO ×2 (09:29→20:14)
[2025-01-04] MEDS: Memantine HCl 10 MG TABLET PO ×2 (09:29→20:14)
[2025-01-04] MEDS: Donepezil HCl 10 MG TABLET 20 MG PO (09:29)
[2025-01-04] MEDS: Sertraline HCL 50 MG TABLET PO (09:29)
[2025-01-04] MEDS: Apixaban 5 MG TABLET PO ×2 (09:29→20:14)
--- NOTE | 2025-01-04 11:07 | MHC.CM.PN ---
Addendum entered by Anna Finch RN 01/04/25 14:00: PT WILL DC TO [facility] UNDER 2WK RESPITE/LONG TERM BENEFIT D/T CAREGIVER BURNOUT, [facility]EC COMPLETE AND BOOKED FOR 1:30PM FACILITY WILL CALL INSURANCE TO VERIFY IN AM. PT'S DTR MALATHI [phone] SHOULD BE CONTACTED TO VERIFY TIME OF DC D/T PT'S /HCP'S REQUEST, Addendum entered by Anna Finch RN 01/04/25 11:25: MILLY ALSO GAVE CM PT'S ALT HCP [facility]'S UPDATED NUMBER [phone] HOWEVER # NOT IN WORKING ORDER AND MILLY REQUESTED CM CONTACT MALATHI FIRST SHE HAS A BETTER UNDERSTANDING OF HEALTHCARE. Original Note: CM CONTACTED PT'S MILLY AT NUMBER ON FILE VIA TUNNEL ELASTIC OPERATOR ZIGZAG, MILLY REPORTING SHE HAD A FAMILY MEETING W/DTR AND THEY DON'T WANT PT TO GO TO LTC, MILLY WOULD LIKE PT TO BE SENT HOME IN AN AMBULANCE TOMORROW MORNING AT 10AM, MILLY REQUESTING CM CONTACT PT'S DTR MALATHI SAAVEDRA [phone], MALATHI CONTACTED AT 11:14AM TO DISCUSS PLAN AND MALATHI REPORTS THAT PT AND PT'S WILL BE MOVING TO [place] IN APRIL, MALATHI AWARE THAT PT COULD ALSO GO TO SNF FOR A RESPITE STAY AND MALATHI WILL CONTACT MILLY TO DISCUSS AND LET CM KNOW WHETHER PT WILL DC HOME TOMORROW MORNING VS [facility] IN [place], TAM IN [facility] NOT CONTRACTED W/PT'S INSURANCE AND WOULD NEED OUT OF NETWORK CONTRACT.
--- NOTE | 2025-01-04 11:58 | PC.NURSE ---
Assumed care of this patient at 1100, patient showered by previous RN Arun, now resting quietly in bed, no issues noted at this time.
[2025-01-04 13:30] VITALS: BP 129/79; PULSE 68; RESP 20; TEMP 36.2; O2SAT 98
--- NOTE | 2025-01-04 17:22 | PC.NURSE ---
Pt confused, asking to go downstairs and leave because he has things to do. Aws Developer called, attempted to reorient patient. Patient now sitting down, dinner tray placed in front of patient, patient not interested in eating at this time.
[2025-01-04] MEDS: Gabapentin 300 MG CAPSULE PO (20:14)
[2025-01-04 22:15] VITALS: BP 148/86; PULSE 69; RESP 16; TEMP 36.1; O2SAT 99
--- NOTE | 2025-01-05 03:56 | PC.NURSE ---
Patient resting comfortably in a hospital bed, respirations even and unlabored, no apparent distress, bed alarm engaged, camera monitor in place, call ann in patent reach.
[2025-01-05 05:16] VITALS: BP 143/84; PULSE 71; RESP 18; TEMP 36.1; O2SAT 97
--- NOTE | 2025-01-05 08:46 | PC.NURSE ---
Pt alert, speaking Eritrean. Breathing even and unlabored, no signs of distress. Pt ate all his breakfast with no issues. Denying any pain.
[2025-01-05 09:26] VITALS: BP 116/74; PULSE 70; RESP 16; TEMP 36.1; O2SAT 98
[2025-01-05 09:30] VITALS: BP 116/74
[2025-01-05] MEDS: Spironolactone 25 MG TABLET PO (09:30)
[2025-01-05] MEDS: Cholecalciferol (Vitamin D3) 25 MCG TABLET 50 MCG PO (09:31)
[2025-01-05] MEDS: Folic Acid 1 MG TABLET PO (09:31)
[2025-01-05] MEDS: Docusate Sodium 100 MG CAPSULE PO (09:31)
[2025-01-05] MEDS: Sertraline HCL 50 MG TABLET PO (09:32)
[2025-01-05] MEDS: Donepezil HCl 10 MG TABLET 20 MG PO (09:33)
[2025-01-05] MEDS: QUEtiapine Fumarate 25 MG TABLET PO ×2 (09:33→20:15)
[2025-01-05] MEDS: Memantine HCl 10 MG TABLET PO ×2 (09:33→20:15)
[2025-01-05] MEDS: Apixaban 5 MG TABLET PO ×2 (09:33→20:15)
[2025-01-05 09:34] VITALS: BP 116/74; PULSE 70
[2025-01-05] MEDS: Calcium + Vitamin D 250 MG TABLET 500 MG PO (09:34)
[2025-01-05] MEDS: Ferrous Sulfate 324 MG TABLET.DR PO (09:34)
[2025-01-05] MEDS: Metoprolol Succinate ER 50 MG TAB.ER.24H PO (09:34)
[2025-01-05] MEDS: Potassium Chloride ER 20 MEQ TAB.ER.PRT PO (09:36)
--- NOTE | 2025-01-05 10:56 | PC.NURSE ---
Pt able to ambulate with walker and assistance to bathroom, urine sample obtained and sent. Linens changed. Pt is resting in bed, no signs of acute distress
[2025-01-05 10:57] LABS: Appearance Urine Clear; Color Urine Yellow; Glucose Urine UA Negative (Negative); Leukocyte Esterase Urine Negative (Negative); Nitrite Urine Negative (Negative); Specific Gravity - Urine 1.015 (1.005-1.025); Urine Blood Negative (Negative); Urine Ketones Negative (Negative); Urine Protein Negative (Neg-Trace)
--- NOTE | 2025-01-05 13:15 | PC.NURSE ---
Pts at bedside doing personal grooming (shaving, bed bath, etc) at her request.
--- NOTE | 2025-01-05 13:16 | MHC.CM.ED ---
Patient remains in ER overflow. BLS transport was originally arranged for 130pm. Had to be changed by Gina at 3pm. Due to patient's history of advanced dementia, transportation booked for Saturday 01/06 at 9am. [facility] with chart. Daughter, Ashely, made aware via telephone at [phone]. Ashely will let her mother know. Patient, Riri STANLEY and Sunitha dinh. Continue to monitor for d/c needs.
[2025-01-05 14:00] VITALS: BP 125/70; PULSE 73; RESP 14; TEMP 36.1; O2SAT 98
[2025-01-05 20:13] VITALS: BP 167/86; PULSE 73; RESP 16; TEMP 36.8; O2SAT 98
[2025-01-05] MEDS: Gabapentin 300 MG CAPSULE PO (20:15)
[2025-01-06 06:00] VITALS: BP 125/81; PULSE 72; RESP 16; TEMP 36.4; O2SAT 98
[2025-01-06 08:28] VITALS: BP 125/81; PULSE 72
[2025-01-06] MEDS: Folic Acid 1 MG TABLET PO (08:28)
[2025-01-06] MEDS: Apixaban 5 MG TABLET PO (08:28)
[2025-01-06] MEDS: Metoprolol Succinate ER 50 MG TAB.ER.24H PO (08:28)
[2025-01-06] MEDS: Memantine HCl 10 MG TABLET PO (08:28)
[2025-01-06] MEDS: Docusate Sodium 100 MG CAPSULE PO (08:29)
[2025-01-06] MEDS: QUEtiapine Fumarate 25 MG TABLET PO (08:29)
[2025-01-06] MEDS: Ferrous Sulfate 324 MG TABLET.DR PO (08:30)
[2025-01-06] MEDS: Cholecalciferol (Vitamin D3) 25 MCG TABLET 50 MCG PO (08:30)
[2025-01-06] MEDS: Sertraline HCL 50 MG TABLET PO (08:31)
[2025-01-06] MEDS: Donepezil HCl 10 MG TABLET 20 MG PO (08:31)
--- NOTE | 2025-01-06 09:08 | PC.NURSE ---
Rn to RN with Viola RN at [facility]. Plan is for transfer at 9am. Pt has been awake, alert. oriented to person only. Continually askes to go home. Did not eat or drink at breakfast. Took pills whole w/o diff. Does not retain reoriented info regarding placement. No family present this am. Was up with PCT to BR and refused walker use.
[2025-01-06 09:20] VITALS: BP 125/81
[2025-01-06] MEDS: Potassium Chloride ER 20 MEQ TAB.ER.PRT PO (09:20)
[2025-01-06] MEDS: Spironolactone 25 MG TABLET PO (09:20)
[2025-01-06] MEDS: Calcium + Vitamin D 250 MG TABLET 500 MG PO (09:20)
== END 2025-01-06 09:57 ==
PROVIDERS: Physician Assistant; Physician Assistant Medical; Emergency Provider Emergency Medicine; PCP Internal Medicine
DX: G30.9 Alzheimer's disease, unspecified (principal); F02.80 Dementia in other diseases classified elsewhere, unspecified severity, without behavioral disturbance, psychotic disturbance, mood disturbance, and anxiety; I48.20 Chronic atrial fibrillation, unspecified; I10 Essential (primary) hypertension; Z03.818 Encounter for observation for suspected exposure to other biological agents ruled out; Z95.0 Presence of cardiac pacemaker; Z79.01 Long term (current) use of anticoagulants; Z86.73 Personal history of transient ischemic attack (TIA), and cerebral infarction without residual deficits; Z79.899 Other long term (current) drug therapy
CPT/HCPCS: 0241U; 36415; 80048; 81003; 85025; 97162; 99284; 99285

== ENCOUNTER 2025-10-05 11:53 | Outpatient (AMB) | payer OTHER, SELFPAY ==
--- OUTSIDE RECORDS SUMMARY | 2025-09-30 10:00 | XMS_ITS | Encounter Summary ---
Author Organization [facility] Address [address] [place] [address] Care Team Providers Care Tank Operator Name Role Phone Jairon Whitlock MD Primary Care Provider [phone] Reason for Referral * Consultation (Routine) - Closed Specialty Diagnoses / Procedures Referred By Contac t Referred To Contact Neurology Diagnoses Severe dementia with other behavioral disturbance, unspecified dementia type (CMS/HCC V24, CMS/HCC V28) Parkinsonian features Emily Godoy NP [address] [place] [address] Phone: tel: fax: Carlos Maldonado MD [address] [place] [phone] Phone: tel: fax: Referral ID Status Reason Start Date Expiration Date V isits Requested Visits Authorized [id number] Closed Specialty Services Required 09/30/2025 09/30/2026 1 1 * Consultation (Routine) - Closed Specialty Diagnoses / Procedures Referred By Contac t Referred To Contact Dermatology Diagnoses Severely dry skin Emily Godoy NP [address] [place], [place] Phone: tel: fax: [facility] [address] [place] [address] Phone: tel: fax: Referral ID Status Reason Start Date Expiration Date V isits Requested Visits Authorized [id number] Closed Specialty Services Required 09/30/2025 09/30/2026 1 1 Reason for Visit * Reason Comments med review Refill mitchell Encounter Details Date Type Department Care Team (Late st Contact Info) Description 09/30/2025 10:00 AM EST Office Visit Adult Medicine [facility] [address] [place] [address] Emily Godoy NP [address] [place] [address] Severe dementia with other behavioral disturbance, unspecified dementia type (CMS/HCC V24, CMS/HCC V28) (Primary Dx); Congestive heart failure, unspecified HF chronicity, unspecified heart failure type (CMS/HCC V24, CMS/HCC V28); Atrial fibrillation, unspecified type (CMS/HCC V24, CMS/HCC V28); Primary hypertension; Severely dry skin; Parkinsonian features Social History Tobacco Use Types Packs/Day Years Used Date Smoking Tobacco: Former Smokeless Tobacco: Former Tobacco Cessation:Counseling Given: Not Answered Alcohol Use Standard Drinks/Week Comments Not Currently 0 (1 standard drink = 0.6 oz pur e alcohol) Housing Instability Answer Date Recorde d Are you worried that in the next 2 months you may not have stable housing? No 04/24/2025 Food Access & Nutrition Answer Date Rec orded Do you have access to a vari ety of food including fruits and vegetables? Yes 04/24/2025 Access to Healthcare Answer Date Record ed Within the last 3 months, ho w many times did you visit the emergency department for your medical care? 0 04/24/2025 Health Literacy Answer Date Recorded How often do you need to hav e someone help you when you read instructions, pamphlets, or other written material from your doctor or pharmacy? Always 04/24/2025 Caregiver: How often do you need to have someone help you when you read instructions, pamphlets, or other written material from your doctor or pharmacy? Not on file 04/24/2025 Financial Risk Answer Date Recorded How hard is it for you to pa y for the very basics like food, housing, medical care, and air conditioning / heating? Somewhat hard 04/24/2025 Transportation Answer Date Recorded Has the lack of transportati on kept you from meetings, work, or from getting things needed for daily living? No Has the lack of transportati on kept you from medical appointments or from getting medications? No 04/24/2025 Social Isolation Answer Date Recorded How often do you feel lonely or isolated from th ose around you? Never 04/24/2025 Food Risk Answer Date Recorded Within the past 12 months we worried whether our food would run out before we got money to buy more. Never true 04/24/2025 Within the past 12 months th e food we bought just didn't last and we didn't have money to get more. Never true 04/24/2025 Dependent Care Answer Date Recorded Do you need help finding or paying for care for your loved ones. For example, manager child or elderly care for an older adult? No 04/24/2025 Education Answer Date Recorded Do you think completing more education or training, like finishing a GED, going to college, or learning a trade, would be helpful for you? N/A 04/24/2025 Employment and Income Answer Date Recor ded During the last four weeks, have you been actively looking for work? Unable to respond 04/24/2025 Living Situation Answer Date Recorded What is your living situation? Unrecognized valu e 04/24/2025 Sex and Gender Information Value Date Recorded Sex Assigned at Male 12/14/2024 11:49 PM EST Legal Sex Male 9:58 PM EST Gender Identity Male 12/14/2024 11:49 PM EST Sexual Orientation Not on file documented as of this encounter Last Filed Vital Signs Vital Sign Reading Time Taken Comments Blood Pressure 112/66 09/30/2025 9:50 AM EST Pulse 73 09/30/2025 9:50 AM EST Temperature 35.9 C (96.7 F) 09/30/2025 9:50 AM EST Respiratory Rate 15 09/30/2025 9:50 AM EST Oxygen Saturation 90% 09/30/2025 9:50 AM EST Inhaled Oxygen Concentration - - Weight 87.7 kg (193 lb 4.8 oz) 09/30/2025 9:50 A M EST Height 167.6 cm (5' 6 ) 09/30/2025 9:50 AM EST Body Mass Index 31.2 09/30/2025 9:50 AM EST documented in this encounter Ordered Prescriptions Prescription Sig Dispense Quantity Refills Last Filled Start Date End Date mineral oil-hydrophilic petrolatum (AQUAPHOR) ointment Apply topically if needed for dry skin. 420 g 09/30/2025 carbidopa-levodopa (SINEMET) 25-100 mg per tablet Take 1 tablet by mouth 3 (three) times a day. 270 each 09/30/2025 nystatin (MYCOSTATIN) 100,000 unit/gram powder Apply thin layer to affected area BID for 2 weeks then stop. 30 g 09/30/2025 documented in this encounter Progress Notes * Emily Godoy, SAP CRM DEVELOPER - 09/30/2025 10:00 AM EST CHIEF COMPLAINT: med review (Nelson medrano) IDENTIFIER: Vladimir Cruz is a 80 y.o. old male. HPI: Patient presents today for medication review. He is accompanied by his spouse who provided this visit's information. He has a significant history of dementia and parkinsonian syndrome. Patient was following with neurology, Dr. Clinton, last visit was 03/2025. Patient states she is not interested in following with a provider and would like a new referral. He is started on Sinemet 25-100 mg 1 tab 3 times daily. Patient has ran out of medication for couple of weeks but was not able to get refills. He remains on Namenda 10 mg twice daily and Seroquel 25 mg twice daily. He is also supposed to be on sertraline 50 mg daily. However, spouse states he has been very sleepy, so she discontinued sertraline. She also reports increased agitation and forgetfulness and sundowning. He has a history of neuropathy and is on gabapentin 300 mg at bedtime. Patient's states he is on pregabalin as well. She is unsure who is prescribing this medication for patient. He follows with cardiology for management of sick sinus syndrome status post dual-chamber pacemaker, CHF, A-fib and hypertension. Last visit was 08/21/2025. Blood pressure controlled at today's visit. He remains compliant with Eliquis 5 mg twice daily, furosemide 20 mg twice daily and metoprolol milligrams daily. No complaints of chest pain, shortness of breath or palpitation and bilateral ankle edema. Reports increased dry skin. Has been applying lotions without significant changes. ROS: GENERAL: No malaise or fever HEENT: No changes in hearing or vision RESPIRATORY: No cough, wheezing or shortness of breath CARDIOVASCULAR: No chest pain, leg swelling or palpitations GI: No abdominal pain, diarrhea, constipation, blood in stool : No dysuria, frequency, incontinence, hematuria MUSCULOSKELETAL: No joint pain or swelling NEURO: No persistent headache, syncope, numbness All other systems reviewed and negative. PAST MEDICAL HISTORY: Patient Active Problem List Diagnosis Date Noted Snoring 04/30/2023 Sick sinus syndrome ([facility] V24, [facility] V28) 10/24/2021 Chest pain 10/24/2021 Cirrhosis of liver without ascites ([facility] V24, [facility] V28) 11/12/2020 Hypertension 02/11/2015 CHF (congestive heart failure) ([facility] V24, [facility] V28) 02/11/2015 Atrial fibrillation ([facility] V24, [facility] V28) 02/11/2015 Neuropathy 02/11/2015 Hep C w/o coma, chronic ([facility] V24, [facility] V28) 02/11/2015 Dementia ([facility] V24, [facility] V28) 02/11/2015 SOCIAL HISTORY: Social History Tobacco Use Smoking status: Former Smokeless tobacco: Former Substance Use Topics Alcohol use: Not Currently FAMILY HISTORY: No family status information on file. Family History[1] ACTIVE MEDICATIONS: Medications Taking[2] ALLERGIES: Patient has no known allergies. PHYSICAL EXAM: APPEARANCE: Alert and in no acute distress EYES: Conjunctiva and sclera normal. HEART: RRR with normal S1 and S2 LUNG: clear to auscultation, no wheezing, rales, or rhonchi EXTREMITIES: Extremities warm and well perfused without clubbing, cyanosis, or edema NEURO: Awake, alert and oriented x 3 LABS/IMAGING: Reviewed IMPRESSION: 1. Severe dementia with other behavioral disturbance, unspecified dementia type (CMS/HCC V24, CMS/HCC V28) 2. Congestive heart failure, unspecified HF chronicity, unspecified heart failure type (CMS/HCC V24, CMS/HCC V28) 3. Atrial fibrillation, unspecified type (CMS/HCC V24, CMS/HCC V28) 4. Primary hypertension 5. Severely dry skin 6. Parkinsonian features PLAN: He presents today for evaluation of chronic medical conditions and medication review. This seems to be discrepancy in patient's current medications and how he is taking them. Advised tobring in medications at next visit for review. Patient and spouse educated not to discontinue medications unless it is discussed with health care provider. New referral to neurology for management of dementia and Parkinson's will be provided per patient request. In the meantime, he will continue on Seroquel 25 mg twice daily, Namenda 10 mg twice daily and I will go ahead and refill Sinemet 25-100 mg 3 times daily. He continue to follow with cardiology for management of CHF, A-fib, hypertension and sick sinus syndrome. Advised to continue current medications as prescribed. BP controlled. Patient with severely dry skin, will provide with Aquaphor to apply to dry skin as needed. Nystatinpowder refilled per patient request. Follow up with PCP as scheduled or sooner if needed Patient verbalized understanding and is in agreement with plan. ADDITIONAL ORDERS: Orders Placed This Encounter Procedures Influenza trivalent, 0.5mL (Fluad) 65yo and older Pneumococcal conjugate 20 valent (Prevnar 20, PCV 20) 2mo and older Ambulatory referral to Dermatology Ambulatory referral to Neurology INFLUENZA TRIVALENT, 0.5ML (FLUAD) 65YO AND OLDER PNEUMOCOCCAL CONJUGATE 20 VALENT (PREVNAR 20, PCV 20) 2MO AND OLDER AMB REFERRAL TO NEUROLOGY AMB REFERRAL TO DERMATOLOGY Emily Godoy NP on 09/30/2025 at 1:06 PM EST Today's documentation was made using voice recognition software.This note may contain grammatical errors secondary to this software [1] No family history on file. [2] Outpatient Medications Marked as Taking for the 09/30/25 encounter (Office Visit) with Emily Godoy NP Medication Sig Dispense Refill albuterol HFA (PROAIR HFA ; PROVENTIL HFA ; VENTOLIN HFA) 90 mcg/actuation inhaler INHALE 2 PUFFS BY MOUTH EVERY 4 HOURS NEEDED FOR WHEEZING OR SHORTNESS OF BREATH 18 g 0 apixaban (Eliquis) 5 mg tablet Take 1 tablet (5 mg total) by mouth 2 (two) times a day. 180 tablet 3 carbidopa-levodopa (SINEMET) 25-100 mg per tablet Take 1 tablet by mouth 3 (three) times a day. 270each 0 cholecalciferol (VITAMIN D-3) 50 mcg (2,000 unit) tablet Take 1 tablet (2,000 Units total) by mouth1 (one) time each day. 90 tablet 1 docusate sodium (COLACE) 100 mg capsule Take 1 capsule (100 mg total) by mouth 1 (one) time each day. 90 each 1 ferrous sulfate 325 mg (65 mg elemental iron) tablet Take 1 tablet (325 mg total) by mouth 1 (one) time each day. folic acid (FOLVITE) 1 mg tablet TAKE 1 TABLET BY MOUTH DAILY 90 tablet 1 furosemide (LASIX) 20 mg tablet Take 1 tablet (20 mg total) by mouth 2 (two) times a day. 60 each 11 inhalational spacing device inhaler Used as directed. 1 each 0 memantine (NAMENDA) 10 mg tablet Take 1 tablet (10 mg total) by mouth 2 (two) times a day. metoprolol succinate (TOPROL-XL) 50 mg 24 hr tablet Take 1 tablet (50 mg total) by mouth 1 (one) time each day. 90 tablet 0 nitroglycerin (NITROSTAT) 0.4 mg SL tablet TAKE 1 TABLET BY MOUTH NEEDED FOR CHEST PAIN. IF CHEST PAIN PERSISTS DESPITE 1 TABLET CALLED 911 25 tablet 2 nystatin (MYCOSTATIN) 100,000 unit/gram powder Apply thin layer to affected area BID for 2 weeks then stop. 30 g 0 QUEtiapine (SEROquel) 25 mg tablet Take 1 tablet (25 mg total) by mouth 2 (two) times a day. [DISCONTINUED] nystatin (MYCOSTATIN) 100,000 unit/gram powder Apply thin layer to affected area BIDfor 2 weeks then stop. 30 g 0 documented in this encounter Plan of Treatment Upcoming Encounters Date Type Department Care Team (Late st Contact Info) Description 12/28/2025 1:15 PM EST Office Visit Adult Medicine [facility] [address] [place], [place] [phone] Jairon Whitlock MD [address] [place], [place] 09/22/2026 1:30 PM EDT Ancillary Procedure [facility] [address] [facility] [address] [place] [address] Scheduled Referrals Name Type Priority Associated Diagnoses Order Schedule Ambulatory referral to Dermatology Outpatient Referral Routine Severely dry skin 1 Occurrences starting 09/30/2025 until 09/30/2026 Ambulatory referral to Neurology Outpatient Referral Routine Severe dementia with other behavioral disturbance, unspecified dementia type (CMS/[facility] V24, CMS/[facility] V28) Parkinsonian features Ordered: 09/30/2025 documented as of this encounter Visit Diagnoses Diagnosis Severe dementia with other behavioral disturbance, unspecified dementia type (CMS/HCC V24, CMS/HCC V28)- Primary Congestive heart failure, unspecified HF chronicity, unspecified heart failure type (CMS/HCC V24, CMS/HCC V28) Atrial fibrillation, unspecified type (CMS/HCC V24, CMS/HCC V28) Primary hypertension Unspecified essential hypertension Severely dry skin Parkinsonian features Encounter for adjustment or management of cardiac device documented in this encounter Discontinued Medications Medication Sig Discontinue Reason Start Date End Da te silver sulfADIAZINE (SILVADENE, SSD) 1 % cream Applied to the perianal skin as a thin film twice daily 06/18/2023 09/30/2025 carbidopa-levodopa (SINEMET) 25-100 mg per tablet Take 1 tablet by mouth 3 (three) times a day. Reorder 04/13/2025 09/30/2025 nystatin (MYCOSTATIN) 100,000 unit/gram powder Apply thin layer to affected area BID for 2 weeks then stop. Reorder 06/01/2025 09/30/2025 documented as of this encounter Orders Immunization/Injection Count Last Ordered Date First Ordered Date INFLUENZA TRIVALENT, 0.5ML ( FLUAD) 65YO AND OLDER 1 09/30/2025 PNEUMOCOCCAL CONJUGATE 20 VA LENT (PREVNAR 20, PCV 20) 2MO AND OLDER 1 09/30/2025 documented in this encounter Additional Health Concerns Assessment Noted Time PHQ-9 Depression Total Score: 18 025 2:54 PM EDT documented as of this encounter Care Teams Tank Operator Relationship Specialty Start Date End Date Jairon Whitlock MD [address] [place] [phone] PCP - General Internal Medicine 11/20/12 documented as of this encounter
--- NOTE | 2025-10-05 12:14 | A.OFFVIS_ITS ---
Intake Visit Reasons: 6m/ AD Allergies No Known Allergies (No Known Allergies*) Allergy (Verified 12/31/24 12:07) HPI Comments Details: 80 years old man known to me for Alzheimer dementia that has been progressing over the years. He also has been taking anticoagulation for atrial fibrillation. He is presenting with concerns regarding the management of dementia and associated wandering behavior. Wandering episodes have been noted particularly at night, with an incident occurring at 3:15 AM where the patient roamed the house and misused shaving cream. These behaviors are possibly exacerbated by increased confusion observed during nighttime hours. The patient?s condition includes an underlying diagnosis of Parkinson?s disease, necessitating carbidopa-levodopa administered thrice per day. Sleep disturbances are a notable concern, with daytime lethargy following administration of quetiapine, used to manage nighttime confusion. The patient continues to take donepezil 23 mg twice daily and memantine twice daily, which do not fully control the cognitive symptoms accompanying dementia. He receives some daily assistance from a personal development educator for a total of six hours but faces challenges during the night when these issues frequently occur. [facility] Medical History Alzheimer's dementia Atrial fibrillation Chronic anticoagulation Cirrhosis CVA (cerebral vascular accident) Hepatic encephalopathy Hypertension Pacemaker Social History Household Members: Spouse Housing: Apartment Do you presently have visiting nurse or other home services: No Unable to assess alcohol history related to: Unknown Patient Tobacco Use Status: Former Tobacco user Advance Directives Date on File: 12/09/22 service: No Current occupational status: retired Review of Systems Narrative - Neurological: Reports wandering behavior, confusion during the night, and memory impairment. - Psychiatric: Reports episodes of increased confusion notably during nighttime. - Sleep: Reports insomnia and daytime lethargy following medication intake at night. Physical Exam Neuro Other: Mental Status: Mostly keeping quite, flat facial expressions, flat gaze. Cranial Nerves: CN II: Visual jolley full to confrontation, visual acuity intact. CN III, IV, : Pupils equal, round, reactive to light and accommodation. Extraocular movements are normal. CN V: Facial sensation is normal. CN VII: Facial movements symmetrical. CN VIII: Hearing intact to bedside conversation is normal. CN IX, X: Palate elevates symmetrically. CN XI: Shoulder shrug and head turn symmetrical. CN XII: Tongue midline without atrophy or fasciculations. Gait and Station: Slow and cautious gait with a slightly stooped posture Extrapyramidal: Full facial expressions and blinking. No rigidity. Movements are appropriate with no tremor or abnormality. Speech: Normal; no dysarthria or tremor. Assessment & Plan Assessment & Plan (1) Alzheimer's dementia: Code(s): G30.9 - Alzheimer's disease, unspecified; F02.80 - Dementia in other diseases classified elsewhere, unspecified severity, without behavioral disturbance, psychotic disturbance, mood disturbance, and anxiety Category: Medical Qualifiers: Alzheimer's disease onset: late onset Dementia severity: severe Dementia behavioral or psychological symptom: with other behavioral disturbance Qualified Code(s): G30.1 - Alzheimer's disease with late onset; F02.C18 - Dementia in other diseases classified elsewhere, severe, with other behavioral disturbance Plan Impression: a: Severe dementia b: Parkinsonism c: Dementia related behavioral disorder Rec: a: Donepezil 23mg one a day b: Memantine 10mg twice a day c: Quetiapine 25mg, three at night, one in afternoon d: Sertaline 50mg one in am Medications: New carbidopa-levodopa 25-100 mg (Sinemet) 1 tab PO TID 270 tabs 0RF Changed From donepezil 1 tab PO DAILY To donepezil 23 mg PO DAILY 90 tabs 0RF From sertraline 1 tab PO DAILY To sertraline 50 mg PO DAILY 90 tabs 0RF From quetiapine 1 tab PO BID To quetiapine 25 mg PO ONCE 90 tabs 0RF From memantine 1 tab PO BID To memantine 10 mg PO BID 180 tabs 0RF Coding Level of Care Code Est Pt Level 3 (11693) Global (23125) Diagnoses Severe late onset Alzheimer's dementia with other behavioral disturbance G30.1; F02.C18 Alzheimer's disease onset: late onset Dementia severity: severe Dementia behavioral or psychological symptom: with other behavioral disturbance Time Spent (min) 30
--- OUTSIDE RECORDS SUMMARY | 2025-10-05 14:18 | XMS_ITS | Encounter Summary ---
Author Organization [facility] Address [address] [place] [address] Care Team Providers Care Collar Setter Name Role Phone Jairon Whitlock MD Primary Care Provider [phone] Encounter Details Date Type Department Care Team (Late st Contact Info) Description 09/15/2025 Telephone [facility] [address] [facility] [address] [place] [address] Geovanni Coreas MA Social History Tobacco Use Types Packs/Day Years Used Date Smoking Tobacco: Former Smokeless Tobacco: Former Alcohol Use Standard Drinks/Week Comments Not Currently [...] Record ed Within the last 3 months, ramon iverson many times did you visit the emergency [...] care for your loved ones. For example, children's entertainer or elderly care for an older adult? [...] on file documented as of this encounter Progress Notes * Geovanni Coreas MA - 09/15/2025 1:11 PM EDT Pt was a n/s for device check today. Please call pt and reschedule for next available routine device check he can do. Thanks. documented in this encounter Plan of Treatment Upcoming Encounters Date Type Department Care Team (Late st Contact Info) Description 12/28/2025 1:15 PM EST Office Visit Adult Medicine [facility] [address] [place] [address] Jairon Whitlock MD [address] [place] [address] 09/22/2026 1:30 PM EDT Ancillary Procedure [facility] [address] [facility] [address] [place] [address] documented as of this encounter Visit Diagnoses Not on filedocumented in this encounter Additional Health Concerns Assessment Noted Time PHQ-9 Depression Total Score: 18 05/ 025 2:54 PM EDT documented as of this encounter Care Teams Collar Setter Relationship Specialty Start Date End Date Jairon Whitlock MD [address] [place] [address] PCP - General Internal Medicine 11/20/12 documented as of this encounter
--- OUTSIDE RECORDS SUMMARY | 2025-10-05 14:18 | XMS_ITS | Clinical Summary ---
Author Organization 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 11/30/19 24 Active memantine (NAMENDA) 10 mg tablet Take 1 tablet (10 mg total) by mouth 2 (two) times a day. Active QUEtiapine (SEROquel) 25 mg tablet Take 1 tablet (25 mg total) by mouth 2 (two) times a day. Active sertraline (ZOLOFT) 50 mg tablet Take 1 tablet (50 mg total) by mouth 1 (one) time each day. Active cholecalciferol (VITAMIN D-3) 50 mcg (2,000 unit) tablet Take 1 tablet (2,000 Units total) by mouth 1 (one) time each day. 90 tablet 1 12/16/19 25 Active apixaban (Eliquis) 5 mg tabletIndicatio ns:Atrial fibrillation, unspecified type (CMS/HCC V24, CMS/HCC V28) Take 1 tablet (5 mg total) by mouth 2 (two) times a day. 180 tablet 3 04/27/20 25 Active inhalational spacing device inhalerIndicati ons:Wheeze Used as directed. 1 each 04/27/20 25 026 Active folic acid (FOLVITE) 1 mg tablet TAKE 1 TABLET BY MOUTH DAILY 90 tablet 1 05/27/20 25 Active docusate sodium (COLACE) 100 mg capsule Take 1 capsule (100 mg total) by mouth 1 (one) time each day. 90 each 1 06/01/20 25 Active metoprolol succinate (TOPROL-XL) 50 mg 24 hr tablet Take 1 tablet (50 mg total) by mouth 1 (one) time each day. 90 tablet 06/01/20 25 Active nitroglycerin (NITROSTAT) 0.4 mg SL tablet TAKE 1 TABLET BY MOUTH NEEDED FOR CHEST PAIN. IF CHEST PAIN PERSISTS DESPITE 1 TABLET CALLED 911 25 tablet 2 08/10/20 25 Active gabapentin (NEURONTIN) 300 mg capsule Take 1 capsule (300 mg total) by mouth at bedtime. Active furosemide (LASIX) 20 mg tablet Take 1 tablet (20 mg total) by mouth 2 (two) times a day. 60 each 11 08/21/20 25 026 Active albuterol HFA (PROAIR HFA ; PROVENTIL HFA ; VENTOLIN HFA) 90 mcg/actuation inhaler INHALE 2 PUFFS BY MOUTH EVERY 4 HOURS NEEDED FOR WHEEZING OR SHORTNESS OF BREATH 18 g 09/22/20 25 Active nystatin (MYCOSTATIN) 100,000 unit/gram powder Apply thin layer to affected area BID for 2 weeks then stop. 30 g 09/30/20 25 Active carbidopa-levod opa (SINEMET) 25-100 mg per tablet Take 1 tablet by mouth 3 (three) times a day. 270 each 09/30/20 25 Active mineral oil-hydrophilic petrolatum (AQUAPHOR) ointment Apply topically if needed for dry skin. 420 g 09/30/20 25 026 Active silver sulfADIAZINE (SILVADENE, SSD) 1 % cream Applied to the perianal skin as a thin film twice daily 06/18/20 23 025 Discontinued albuterol HFA (ProAir HFA) 90 mcg/actuation inhaler Inhale 2 puffs by mouth every 4 (four) hours if needed for wheezing or shortness of breath. 8.5 g 12/16/19 25 025 Discontinued carbidopa-levod opa (SINEMET) 25-100 mg per tablet Take 1 tablet by mouth 3 (three) times a day. 04/13/20 25 025 Discontinued(Re order) nystatin (MYCOSTATIN) 100,000 unit/gram powder Apply thin layer to affected area BID for 2 weeks then stop. 30 g 06/01/20 25 025 Discontinued(Re order) Active Problems Problem Noted Date Diagnosed Date [...] understands and is agreeable. Sick sinus syndrome (CMS/HCC V24, CMS/HCC V28) 1 12/24/2020 Overview (08/21/2025): Biotronik dual-chamber pacemaker Assessment & Plan (08/21/2025 1:20 PM EDT): The patient's device is normally functioning. Continue in office and remote follow-up. Chest pain 10/24/2021 Overview (02/03/2024): Last Assessment [...] should call 911. 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 However, he has evidence of volume overload by his thoracic impedance as well as some ankle edema. See below. CHF (congestive heart failure) ([facility] V24, [facility] V28) 02/11/2015 Assessment & Plan (08/21/2025 1:22 PM EDT): Unfortunately, his history is not reliable due to his memory issues. In discussion with his , with shared decision making, we are transitioning his spironolactone to furosemide 20 mg once daily with a basic metabolic profile in about a week's time or so. We discussed conservative management for his heart failure. We also discussed how sometimes with diuretics exacerbate propensity towards orthostatic hypotension, especially in patients with underlying memory issues. As such, we have asked him to let me know if he has any balance issues or falls. We may need to reevaluate our plan. I am hesitant to increase his spironolactone as his last potassium was borderline elevated at 5. The patient's understands this and agrees. Atrial fibrillation ([facility] V24, [facility] V28) 0 02/11/2015 Overview (08/21/2025): Persistent atrial fibrillation Anticoagulated apixaban Assessment & Plan (08/21/2025 1:23 PM EDT): The patient's heart rate is supported by his pacemaker. He remains on metoprolol 50 mg once daily. He has not had any bleeding issues nor falls on his current dose Eliquis. 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 Severe dementia with other behavioral disturbance, unspecified dementia type (CMS/HCC V24, CMS/HCC V28) (Primary Dx); Congestive heart failure, unspecified HF chronicity, unspecified heart failure type (CMS/HCC V24, CMS/HCC V28); Atrial fibrillation, unspecified type (CMS/HCC V24, CMS/HCC V28); Primary hypertension; Severely dry skin; Parkinsonian features 09/21/2025 1:30 PM EDT Ancillary Procedure [facility] Cardiology [facility] [address] [place] [address] Encounter for adjustment or management of cardiac device 09/15/2025 Telephone [facility] [address] [place] [address] Geovanni Coreas MA 08/25/2025 Telephone [facility] [address] [place] [address] Lui Oneil MD 08/21/2025 11:00 AM EDT Office Visit [facility] Cardiology [facility] [address] [place] [address] Sadaf Sanchez NP Atrial fibrillation, unspecified type (CMS/HCC V24, CMS/HCC V28) (Primary Dx); Sick sinus syndrome (CMS/HCC V24, CMS/HCC V28); Primary hypertension; Chronic diastolic congestive heart failure (CMS/HCC V24, CMS/HCC V28) 08/07/2025 4:15 PM EDT Ancillary Procedure [facility] Card[facility] [address] [place] [address] 08/03/2025 Telephone [facility] [address] [place] [address] Lui Oneil MD 07/17/2025 9:40 AM EDT Ancillary Procedure [facility] [address] [place] [address] 07/14/2025 11:25 AM EDT Ancillary Procedure [facility] Cardiology [facility] [address] [place] [address] 07/13/2025 Telephone [facility] Cardiology [facility] [address] [place] [address] Lui Oneil MD from Last 3 Months Immunizations Immunization Administration Dates Next Due Influenza trivalent, 0.5mL ( Fluad) 65yo and older 09/30/2025 Influenza trivalent, 0.5mL ( Fluzone High-dose) 65yo and older 08/13/2018,08/08/2016,08/09/2015 Influenza trivalent, with pr eservative (Fluzone; Afluria) 6mo and older 08/07/2017 Pneumococcal conjugate 20 va lent (Prevnar 20, PCV 20) 2mo and older 09/30/2025 Zoster recombinant (Shingrix ) 19yo and older 05/17/2018,03/05/2018 Medical History Medical History Date Comments Atrial fibrillation ([facility]/HCC V24, [facility] V28) 02/11/2015 DX:Atrial fibrillation (HCC) Hep C w/ coma, chronic 02/11/2015 DX:Hep C w/ coma, chronic Hypertension 02/11/2015 DX:Hypertension Hep C w/o coma, chronic (CMS /HCC V24, CMS/HCC V28) 02/11/2015 DX:Hep C w/o coma, chronic ( [facility]) Neuropathy 02/11/2015 DX:Neuropathy Dementia (CMS/HCC V24, CMS/HCC V28) 02/11/2015 DX:Dementia (HCC) Social History Tobacco Use Types Packs/Day Years [...] care for your loved ones. For example, special needs child caregiver or elderly care for an older adult? [...] PM EST Sexual Orientation Not on file Obstetrics History Last Filed [...] Mass Index 31.2 09/30/2025 9:50 AM EST Plan of Treatment Upcoming Encounters Date Type Department Care Team (Late st Contact Info) Description 12/28/2025 1:15 PM EST Office Visit Adult Medicine [address] [phone] Jairon Whitlock MD [address] [place] [address] 09/22/2026 1:30 PM EDT Ancillary Procedure [facility] [address] [facility] [place] [address] Health Maintenance Due Date Last Done Comments DTaP,Tdap,and Td Vaccines (1 - Tdap) 1964 Hepatitis A Vaccines (1 of 2 - Risk 2-dose series) 1964 Hepatitis B Vaccines (1 of 3 - Risk 3-dose series) 2006 Hepatitis C Screening 11/04/2022 Medicare Annual Wellness Visit 11/04/2022 COVID-19 Vaccine ( season) 2026 08/25/2025, 04/11/2022 Hypertension/CHF/CAD Annual BMP Blood Test 04/13/2026 04/13/2025, 09/15/2024, 06/10/2024 Social Influencers of Health Screening 04/24/2026 04/24/2025 Falls Risk Assessment 04/27/2026 04/27/2025 Cholesterol Screening (Lipid Panel) 01/12/2028 01/12/2023 Zoster Vaccines Completed 05/16/2024, 04/27, 03/05/2018, Additional history exists Depression Screening Completed 04/24/2025 RSV Immunization Adult Patients Completed 08/25/2025 Influenza Vaccine Completed 09/30/2025, , 08/27/2022, Additional history exists Pneumococcal Vaccine: 50+ Years Completed 09/30/2025 HIB Vaccines Aged Out No longer eligi [...] patient's age to complete this topic Meningococcal B Vaccine Aged Out No l onger eligible based on patient's age to complete this topic RSV Immunization Patients Under 20 months Aged Out No longer eligible based on patient's age to complete this topic Varicella Vaccines Aged Out No longer eligible based on patient's age to complete this topic Medical Devices Implanted Type Area Ware Dresser Device Identifier Shelf Expiration Date Model / Serial / Lot AprilShadiRenee Luz [id number] Implanted:12/2015 (Quantity not on file) Cardiac Pacemaker [employer] DARRELL LUZ / [id number] / Procedures Procedure Name Priority Date/Time Associated Diagnosis Comments CARDIAC DEVICE CHECK- IN [facility]- [facility] Routine 09/21/2025 3:21 PM EDT Encounter for adjustment or management of cardiac device ECG 12-LEAD Routine 08/21/2025 1:23 PM EDT Atrial fibrillation, unspecified type (CMS/HCC V24, CMS/HCC V28) CARDIAC DEVICE CHECK- REMOTE- [facility] Routine 08/07/2025 4:10 PM EDT CARDIAC DEVICE CHECK- REMOTE- [facility] Routine 07/17/2025 9:40 AM EDT CARDIAC DEVICE CHECK- REMOTE- [facility] Routine 07/14/2025 11:20 AM EDT COMPREHENSIVE METABOLIC PANEL Routine 04/13/2025 2:32 PM EDT Primary hypertension Cirrhosis of liver without ascites, unspecified hepatic cirrhosis type (CMS/HCC V24, CMS/HCC V28) from Last 3 Months or Most Recently Relevant to Health Maintenance Results * CARDIAC DEVICE CHECK- IN CLINIC- [facility] (09/21/2025 3:21 PM EDT) Date Time Interrogation Session [id number] CV DEVICE CHECK Implantable Pulse Generator Ware Dresser BIO CV DEVICE CHECK Implantable Pulse Generator Type IPG CV DEVICE CHECK Implantable Pulse Generator Model Eluna 8 DR-T CV DEVICE CHECK Implantable Pulse Generator Serial Number [id number] CV DEVICE CHECK Implantable Pulse Generator Implant Date 20160527 CV DEVICE CHECK Battery Status Middle of Service CV DEVICE CHECK Lead Channel Sensing Intrinsic Amplitude 2.700 CV DEVICE CHECK Lead Channel Impedance Value 526 CV DEVICE CHECK Lead Channel Setting Pacing Amplitude 4.000 CV DEVICE CHECK Lead Channel Setting Pacing Pulse Width 0.4 CV DEVICE CHECK Lead Channel Sensing Intrinsic Amplitude 6.200 CV DEVICE CHECK Lead Channel Impedance Value 546 CV DEVICE CHECK Lead Channel Pacing Threshold Amplitude 1.000 CV DEVICE CHECK Lead Channel Pacing Threshold Pulse Width 0.4 CV DEVICE CHECK Lead Channel Setting Pacing [...] 160 CV DEVICE CHECK Date of Service 2026-09-06 CV DEVICE CHECK Anatomical Region Laterality Modality Device Interroga tion 09/21/2025 Impressions 10/02/2025 11:34 AM EST Normal In-Office: No Events * Normal Device Function * Alerts or events: No new clinically significant alerts * Battery: MOS, 3.5 years * Sensing, impedance and thresholds reviewed and tested * Presenting Rhythm: 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 * Underlying Rhythm: AF VS 80s * Heart Rate Histograms reviewed * Pacing and Detection Parameters were evaluated Narrative Procedure Note Lui Oneil MD - 10/02/2025 IMPRESSION: Normal In-Office: No Events * Normal Device Function * Alerts or events: No new clinically significant alerts * Battery: MOS, 3.5 years * Sensing, impedance and thresholds reviewed and tested * Presenting Rhythm: 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 * Underlying Rhythm: AF VS 80s * Heart Rate Histograms reviewed * Pacing and Detection Parameters were evaluated us Order Referral Cardiovascular CV IMPLANTABLE CAR DIAC DEVICE PROCEDURES Final Result * ECG 12 lead (08/21/2025 1:23 PM EDT) Ventricular Rate ECG 84 BPM GEMUSE Atrial Rate 74 BPM GEMUSE QRS Duration 88 ms GEMUSE Q-T Interval 362 ms GEMUSE QTc 427 ms GEMUSE R [place] 4 degrees GEMUSE T [place] -56 degrees GEMUSE ECG Interpretation Atrial fibrillation with frequent ventricular-paced complexes , anticoagulated ST and T wave abnormality, consider inferolateral ischemia , unchanged Abnormal ECG When compared with ECG of 07-MAY-2020 13:09, Vent. rate has increased BY 5 BPM Confirmed by DEMARCUS MOORE ([id number]) on 08/21/2025 4:13:51 PM GEMUSE 08/21/2025 10:4 7 AM EDT 08/21/2025 4:13 PM EDT Sadaf Sanchez NP ECG ORDERABLES Edited Result - Final GEMUSE * Cardiac device check - Remote- [facility] (08/07/2025 4:10 PM EDT) Only the most recent of3 resultswithin the time period is included. Date Time Interrogation Session [id number] CV DEVICE CHECK Type Interrogation Session Remote CV DEVICE CHECK Implantable Pulse Generator Ware Dresser BIO CV DEVICE CHECK Implantable Pulse Generator Type IPG CV DEVICE CHECK Implantable Pulse Generator Model Eluna 8 DR-T CV DEVICE CHECK Implantable Pulse Generator Serial Number [id number] CV DEVICE CHECK Implantable Pulse Generator Implant Date 20160527 CV DEVICE CHECK Battery Remaining Percentage 35.00 CV DEVICE CHECK Battery Status Middle of Service CV DEVICE CHECK Jc Statistic RA Percent Paced 2.00 CV DEVICE CHECK Jc Statistic RV Percent Paced 57.00 CV DEVICE CHECK Atrial Tachy Statistic AT/AF [place] Percent 100.00 CV DEVICE CHECK Lead Channel Sensing Intrinsic Amplitude 1.700 CV DEVICE CHECK Lead Channel Impedance Value 527 CV DEVICE CHECK Lead Channel RA Pacing Threshold Date 2025-08-02 CV DEVICE CHECK Lead Channel Setting Pacing Amplitude 4.000 CV DEVICE CHECK Lead Channel Setting Pacing Pulse Width 0.4 CV DEVICE CHECK Lead Channel Sensing Intrinsic Amplitude 6.500 CV DEVICE CHECK Lead Channel Impedance Value 527 CV DEVICE CHECK Lead Channel RV Pacing Threshold Date 2025-08-02 CV DEVICE CHECK Lead Channel Setting Pacing [...] 160 CV DEVICE CHECK Date of Service 2025-08-09 CV DEVICE CHECK Anatomical Region Laterality Modality Device Interroga tion 08/02/2025 12:3 3 AM EDT Impressions 08/07/2025 3:48 PM EDT Normal Remote: No Events * Normal Device Function * Alerts or events: None * Battery: Battery is at 35%, * Sensing, impedance and thresholds reviewed * Programmed parameters reviewed * Presenting rhythm reviewed * Heart Rate Histograms reviewed * No significant changes noted Additional Notes: PVC burden 41 %. Historically high Heart Failure Diagnostic: Elevated Sent to Triage * Heart failure diagnostics assessed through the device * Status: Elevated Narrative Procedure Note Mari Gomez NP - 08/07/2025 IMPRESSION: Normal Remote: No Events * Normal Device Function * Alerts or events: None * Battery: Battery is at 35%, * Sensing, impedance and thresholds reviewed * Programmed parameters reviewed * Presenting rhythm reviewed * Heart Rate Histograms reviewed * No significant changes noted Additional Notes: PVC burden 41 %. Historically high Heart Failure Diagnostic: Elevated Sent to Triage * Heart failure diagnostics assessed through the device * Status: Elevated Mari Gomez NP CV IMPLANTABLE CARDIAC DEVIC E PROCEDURES Final Result * (ABNORMAL) Comprehensive metabolic panel (04/13/2025 2:32 PM EDT) Sodium 135 133 - 145 mmol/L LAB CHEMISTRY METHOD 04/13/2025 7:05 PM [facility] Potassium 5.2 3.5 - 5.5 mmol/L LAB CHEMISTRY METHOD 04/13/2025 7:05 PM [facility] Chloride 107 96 - 110 mmol/L LAB CHEMISTRY METHOD 04/13/2025 7:05 PM [facility] CO2 23 21 - 32 mmol/L LAB CHEMISTRY METHOD 04/13/2025 7:05 PM [facility] Anion Gap 5 3 - 11 LAB CHEMISTRY METHOD 04/13/2025 7:05 PM [facility] Glucose 81 70 - 100 mg/dL LAB CHEMISTRY METHOD 04/13/2025 7:05 PM [facility] BUN 12 5 - 25 mg/dL LAB CHEMISTRY METHOD 04/13/2025 7:05 PM [facility] Creatinine 0.94 0.70 - 1.30 mg/dL LAB CHEMISTRY METHOD 04/13/2025 7:05 PM [facility] eGFR 82 >=60 mL/min/1. 73m2 LAB CHEMISTRY METHOD 04/13/2025 7:05 PM [facility] Comment:Calculation based on the Chronic Kidney Disease Epidemiology Collaboration (CKD-EPI) equation refit without adjustment for race. BUN/Creatinine Ratio 12.8 LAB CHEMISTRY METHOD 04/13/2025 7:05 PM [facility] Calcium 8.4(L) 8.5 - 10.5 mg/dL LAB CHEMISTRY METHOD 04/13/2025 7:05 PM [facility] AST (SGOT) 18 10 - 42 unit/L LAB CHEMISTRY METHOD 04/13/2025 7:05 PM [facility] ALT (SGPT) 15 10 - 60 unit/L LAB CHEMISTRY METHOD 04/13/2025 7:05 PM [facility] Alkaline Phosphatase 118 42 - 121 unit/L LAB CHEMISTRY METHOD 04/13/2025 7:05 PM [facility] Total Protein 7.6 6.0 - 8.0 g/dL LAB CHEMISTRY METHOD 04/13/2025 7:05 PM [facility] Albumin 3.5 3.2 - 5.0 g/dL LAB CHEMISTRY METHOD 04/13/2025 7:05 PM [facility] Total Bilirubin 0.7 0.0 - 1.4 mg/dL LAB CHEMISTRY METHOD 04/13/2025 7:05 PM [facility] Blood Venous blood specimen / Unknown Venipuncture / Unknown 04/13/2025 2:32 PM EDT 04/13/2025 2:32 PM EDT us Jairon Whitlock MD LAB BLOOD ORDERABLES Final Resu lt 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
== END 2025-10-05 12:27 | disposition home or self-care (01) ==
LOC: HO.HSM 11:54
PROVIDERS: PCP Internal Medicine; Referring Provider Internal Medicine; Visit Provider Psychiatry & Neurology Neurology
DX: G30.1 Alzheimer's disease with late onset (principal); F02.C18 Dementia in other diseases classified elsewhere, severe, with other behavioral disturbance
CPT/HCPCS: 99213; G2211

== ENCOUNTER → 2025-10-05 11:53 | Outpatient (BNVA) | payer OTHER, SELFPAY | PROVIDERS: PCP Internal Medicine; Referring Provider Internal Medicine; Visit Provider Psychiatry & Neurology Neurology | DX: G30.1 Alzheimer's disease with late onset (principal); F02.C18 Dementia in other diseases classified elsewhere, severe, with other behavioral disturbance | CPT/HCPCS: 99212 ==